=== PATIENT | female | born 1940 | race Caucasian/White ===

== ENCOUNTER 2016-03-30 05:54 | Day surgery (SDC) | payer MEDICARE, BC ==
[2016-03-30] MEDS ORDERED: Lactated Ringers 1,000 ML IV SCH (06:30)
--- NOTE | 2016-03-30 08:27 | OP ---
SURGERY DATE: 03/30/16 SURGERY TIME: 734 PREOPERATIVE DIAGNOSIS: 1. SCREENING EXAM. 2. FAMILY HISTORY OF COLON CANCER, TWO FIRST DEGREE RELATIVES. POSTOPERATIVE DIAGNOSIS: 1. SIGMOID DIVERTICULOSIS, OTHERWISE NORMAL COLON. PROCEDURE: 1. Colonoscopy. SURGEON: Dr. Cortes. ANESTHESIA: MAC, medications given by the Anesthesia Department. BRIEF HISTORY: The patient is a 76 y/o WF presenting now for her 2nd screening colonoscopy. She reports she had one several years ago, roughly ten. The patient reports that her mother and brother had colon cancer. The patient was felt to need have endoscopic evaluation. She was appraised of the risks of the procedure including the risk of perforation, phlebitis, untoward reaction to medication, bleeding, and missed lesions. The patient verbalized her understanding and desired to have the procedure performed. DESCRIPTION OF PROCEDURE: The patient was given the medications by the Anesthesia Department. She had continuous pulse oximetry, ECG monitoring, intermittent BP monitoring, and end tidal CO2 monitoring during the examination. She was placed in the left lateral decubitus position. A digital rectal examination was performed and revealed normal anal sphincter tone and no masses. The flexible Olympus pediatric colonoscope was used to intubate the rectum. A view of the colon was developed sequentially to the cecum. Upon insertion and withdrawal, including a retroflex view in the rectum, no mucosal lesions were encountered other than the occasional scattered sigmoid diverticula. The scope was removed from the patient who tolerated the procedure well and was sent back to OP recovery in good condition. The prep was noted to be fair to good.
[2016-03-30 09:07] VITALS: O2SAT 98
[2016-03-30 09:08] VITALS: BP 109/60; PULSE 76
[2016-03-30] MEDS ORDERED: DIPRIVAN 200 MG/20 ML IV ONE (13:43)
[2016-03-30] MEDS ORDERED: Ketamine HCl 50 MG/ML IJ ONE (13:43)
== END 2016-03-30 09:05 | disposition home or self-care (01) ==
LOC: SDC 05:54
PROVIDERS: ATTEND Family Medicine
PROC: 0DJD8ZZ Inspection of Lower Intestinal Tract, Via Natural or Artificial Opening Endoscopic (ICD-10-PCS; principal; 2016-03-30)
DX: Z12.11 Encounter for screening for malignant neoplasm of colon (principal); Z80.0 Family history of malignant neoplasm of digestive organs; K57.30 Diverticulosis of large intestine without perforation or abscess without bleeding
CPT/HCPCS: 00810; 99100; G0105; J2704

== ENCOUNTER 2017-12-03 22:01 | Emergency (ER) | payer MEDICARE, BC ==
[2017-12-03 22:26] VITALS: BP 171/96
[2017-12-03] MEDS ORDERED: Zofran 4 MG/2 ML VIAL IV ONE (22:55)
[2017-12-03] MEDS ORDERED: Sodium Chloride 0.9% 1000 ML 1,000 ML IV SCH (23:00)
--- NOTE | 2017-12-03 23:05 | ERPHSYRPT ---
- History of Present Illness Time Seen by Provider: 12/03/17 22:35 Historian: patient Exam Limitations: clinical condition Patient Subjective Stated Complaint: Pt arrives to ER with c/o vomiting for 1 hour. Pt has constipated for past 1 week. States takes pain medicine for chronic back pain on occasion, states took 1 Hydrocodone last week and 1 Oxycodone today. Was seen by Pain Doctor yesterday for hip/back/knee pain. Triage Nursing Assessment: see above Physician History: PATIENT WITH A HISTORY OF HYPERTENSION, AND CHRONIC PAIN, COMPLAINS OF UPPER ABDOMINAL PAIN TODAY ASSOCIATED WITH 1 EPISODE OF EMESIS AND CONSTIPATION FOR 1 WEEK. DENIES FEVER, URINARY SYMPTOMS DYSURIA, FREQUENCY, HEMATURIA AND FLANK PAIN. Timing/Duration: today Activities at Onset: none Quality: cramping Abdominal Pain Onset Location: epigastric Pain Radiation: no radiation Severity of Pain-Max: moderate Severity of Pain-Current: moderate Associated Symptoms: nausea, vomiting (CONSTIPATION) Allergies/Adverse Reactions: codeine Allergy (Verified 12/03/17 22:26) erythromycin base Allergy (Verified 12/03/17 22:26) latex Allergy (Verified 12/03/17 22:26) Home Medications: Aspirin/Calcium Carbonate/Mag [Aspirin Buffered 325 mg Tab] 325 mg PO DAILY [History] Colchicine [Mitigare] 0.6 mg PO DAILY 12/07/15 [History] Ergocalciferol (Vitamin D2) [Vitamin D2] 50,000 unit PO Q7D 12/07/15 [History] Hydrocodone Bit/Acetaminophen [[place] 7.5-325 Tablet] 1 each PO BID 12/07/15 [ History] Magnesium 400 mg PO DAILY 12/07/15 [History] Melatonin 5 mg PO HS 12/07/15 [History] Methyl-B12/l-Mefolate/B6 Phos [Metanx Tablet] 1 each PO BID 12/07/15 [History] Olmesartan Medoxomil 20 mg [Benicar 20 MG] 20 mg PO BID 12/07/15 [History] Potassium Chloride [Klor-Con 10] 10 meq PO BID 12/07/15 [History] Promethazine HCl 25 mg [Phenergan 25 mg] 25 mg PO .PRN 12/07/15 [History] Ranitidine HCl [Zantac] 150 mg PO DAILY 12/07/15 [History] Allopurinol 100 mg [Zyloprim 100 mg] 100 mg PO 12/03/17 [History] Bumetanide 1 mg [Bumex 1 mg] 1 mg PO 12/03/17 [History] Gabapentin 100 mg PO 12/03/17 [History] Oxycodone HCl/Acetaminophen [Oxycodone-Acetaminophen 5-325] 1 each PO 12/03/17 [ History] Pravastatin Sodium [Pravachol] 10 mg PO 12/03/17 [History] - Review of Systems Constitutional: No Fever, No Chills Eyes: No Symptoms Ears, Nose, & Throat: No Symptoms Respiratory: No Symptoms, No Cough, No Dyspnea Cardiac: No Symptoms, No Chest Pain, No Edema, No Syncope Abdominal/Gastrointestinal: No Abdominal Pain, No Nausea, No Vomiting, No Diarrhea Genitourinary Symptoms: Flank Pain, No Dysuria Musculoskeletal: No Back Pain, No Neck Pain Skin: No Rash Neurological: No Dizziness, No Focal Weakness, No Sensory Changes Psychological: No Symptoms Endocrine: No Symptoms All Other Systems: Reviewed and Negative - Past Medical History Pertinent Past Medical History: Yes ENT History: Cataracts Cardiac History: High Cholesterol, Hypertension, Myocardial Infarction (HI) History: Renal Disease Other Medical History: Rheumatic Fever, Stage III Kidney Disease, - Past Surgical History Past Surgical History: Yes Cardiac: Cardiac Catheterization, Cardiac Stent Gastrointestinal: Cholecystectomy Musculoskeletal: Other Other Surgical History: Sinus Surgery, Left Heel Surgery - Social History Smoking Status: Never smoker Exposure to second hand smoke: No Drug Use: none Patient Lives Alone: No - Female History Hx Now: No - Nursing Vital Signs Nursing Vital Signs: Initial Vital Signs Temperature 98.6 F 12/03/17 22:13 Pulse Rate 95 H 12/03/17 22:13 Respiratory Rate 18 12/03/17 22:13 Blood Pressure 171/96 12/03/17 22:13 O2 Sat by Pulse Oximetry 97 12/03/17 22:13 Pain Scale Pain Intensity 4 - Physical Exam General Appearance: no apparent distress, alert Eye Exam: PERRL/EOMI, eyes nml inspection Ears, Nose, Throat Exam: normal ENT inspection, pharynx normal, moist mucous membranes Neck Exam: normal inspection, non-tender, supple, full range of motion Respiratory Exam: normal breath sounds, lungs clear, No respiratory distress Cardiovascular Exam: regular rate/rhythm, normal heart sounds Gastrointestinal/Abdomen Exam: soft, normal bowel sounds, No tenderness, No mass Back Exam: normal inspection, normal range of motion, CVA tenderness (LEFT CVA TENDERNESS), No vertebral tenderness Extremity Exam: normal inspection, normal range of motion, pelvis stable Neurologic Exam: alert, oriented x 3, cooperative, normal mood/affect, nml cerebellar function, sensation nml, No motor deficits Skin Exam: normal color, warm, dry SpO2 Interpretation: normal SpO2: 97 Oxygen Delivery: Room Air - CT Exams Abdomen/Pelvis CT Interpretation: Tele-radiologist Report (NO ACUTE FINDINGS, NO BOWEL OBSTRUCTION, FREE AIR OR BOWEL WALL THICKENING,) Ordered Tests: Active Orders 24 hr Category Date Time Status Clean Catch Urine Specimen STAT Care 12/03/17 22:55 Active Enema STAT Care 12/04/17 01:14 Active IV Insertion STAT Care 12/03/17 22:55 Active ABDOMEN AND PELVIS W/0 CONTRAS [CT] Stat Exams 12/03/17 22:55 Taken AMYLASE Stat Lab 12/03/17 23:20 Completed CBC W DIFF Stat Lab 12/03/17 23:20 Completed CMP Stat Lab 12/03/17 23:20 Completed CULTURE,URINE Stat Lab 12/03/17 01:42 Received LIPASE Stat Lab 12/03/17 23:20 Completed UA W/ MICROSCOPIC Stat Lab 12/03/17 01:42 Completed Medication Summary Generic Name Dose Route Start Last Admin Trade Name Freq PRN Reason Stop Dose Admin Sodium Chloride 1,000 mls @ 100 mls/hr 12/03/17 23:00 12/03/17 23:33 Sodium Chloride 0.9% 1000 Ml IV 01/02/18 22:59 100 mls/hr .Q10H ALISHA Administration Ceftriaxone Sodium/Dextrose 1 g in 50 mls @ 100 mls/hr 12/04/17 02:18 Rocephin 1 Gm-D5w 50 Ml Bag IV 12/04/17 02:47 STAT STA Discontinued Medications Generic Name Dose Route Start Last Admin Trade Name Freq PRN Reason Stop Dose Admin Morphine Sulfate 4 mg 12/03/17 23:48 12/03/17 23:59 Morphine Sulfate 4 Mg Inj IV 12/03/17 23:49 Not Given STAT ONE Morphine Sulfate Confirm 12/03/17 23:58 Morphine Sulfate 4 Mg Inj Administered 12/03/17 23:59 Dose 4 mg .ROUTE .STK-MED ONE Ondansetron HCl 4 mg 12/03/17 22:55 12/03/17 23:26 Zofran 4 Mg/2 Ml Vial IV 12/03/17 22:56 4 mg STAT ONE Administration Ondansetron HCl Confirm 12/03/17 23:18 Zofran 4 Mg/2 Ml Vial Administered 12/03/17 23:19 Dose 4 mg .ROUTE .STK-MED ONE Lab/Rad Data: Laboratory Result Diagrams 12/03/17 23:20 12/03/17 23:20 Laboratory Results 12/03/17 12/03/17 12/03/17 Range/Units 23:20 23:20 01:42 WBC 7.6 (4.0-10.5) K/mm3 RBC 4.37 (4.1-5.4) M/mm3 Hgb 14.0 (12.0-16.0) gm/dl Hct 40.8 (35-47) % MCV 93.4 (78-100) fl MCH 32.0 (26-32) pg MCHC 34.3 (32-36) g/dl RDW 12.8 (11.5-14.0) % Plt Count 298 (150-450) K/mm3 MPV 9.7 H (6-9.5) fl Gran % 68.1 H (36.0-66.0) % Eos # (Auto) 0.08 (0-0.5) Absolute Lymphs (auto) 1.37 (1.0-4.6) Absolute Monos (auto) 0.91 (0.0-1.3) Lymphocytes % 18.1 L (24.0-44.0) % Monocytes % 12.0 (0.0-12.0) % Eosinophils % 1.1 (0.00-5.0) % Basophils % 0.7 (0.0-0.4) % Absolute Granulocytes 5.16 (1.4-6.9) Basophils # 0.05 (0-0.4) Sodium 139 (137-145) mmol/L Potassium 3.7 (3.5-5.1) mmol/L Chloride 97 L (98-107) mmol/L Carbon Dioxide 32 H (22-30) mmol/L Anion Gap 13.5 (5-15) MEQ/L BUN 32 H (7-17) mg/dL Creatinine 1.46 H (0.52-1.04) mg/dL Estimated GFR 36.9 ML/MIN Glucose 137 H (74-106) mg/dL Calcium 9.7 (8.4-10.2) mg/dL Total Bilirubin 0.70 (0.2-1.3) mg/dL AST 51 H (14-36) U/L ALT 64 H (0-35) U/L Alkaline Phosphatase 104 (38-126) U/L Serum Total Protein 7.4 (6.3-8.2) g/dL Albumin 4.2 (3.5-5.0) g/dL Amylase 114 H (30-110) U/L Lipase 277 (23-300) U/L Ur Collection Type VOID Urine Color YELLOW (YELLOW) Urine Appearance SLIGHTLY CLOUDY (CLEAR) Urine pH 5.0 (5-6) Ur Specific Dickey 1.025 (1.005-1.025) Urine Protein NEGATIVE (Negative) Urine Ketones NEGATIVE (NEGATIVE) Urine Blood NEGATIVE (0-5) Simone/ul Urine Nitrite NEGATIVE (NEGATIVE) Urine Bilirubin NEGATIVE (NEGATIVE) Urine Urobilinogen NORMAL (0-1) mg/dL Ur Leukocyte Esterase 2+ (NEGATIVE) Urine Microscopic RBC 10-15 (0-2) /HPF Urine Microscopic WBC 15-25 (0-5) /HPF Ur Epithelial Cells MANY (FEW) /HPF Urine Bacteria MANY (NEGATIVE) /HPF Hyaline Casts 0-2 (0-2) /LPF Urine Culture Reflexed YES (NO) Urine Glucose NEGATIVE (NEGATIVE) mg/dL - Progress Progress Note: 12/04/17 02:24 IV NORMAL SALINE 100ML/HR, ZOFRAN 4MG, ROCEPHIN 1GM IVPB, SOAP SUDS ENEMA 12/04/17 02:25 Counseled pt/family regarding: lab results, diagnosis, need for follow-up, rad results - Departure Time of Disposition: 03:15 Departure Disposition: Home Clinical Impression: CONSTIPATION, URINARY TRACT INFECTION Condition: Stable Critical Care Time: No Referrals: GENOVEVA CASTELLANOS [Primary Care Provider] - Additional Instructions: TAKE OVER THE COUNTER MAGNESIUM CITRATE 1 BOTTLE FOR CONSTIPATION. ANTIBIOTIC BACTRIM DS TWICE DAILY FOR10 DAYS FOR TREATMENT OF YOUR URINARY TRACT INFECTION. CONSULT YOUR PRIMARY CARE PROVIDER FOR FOLLOWUP. Prescriptions: Smz/Tmp Ds Tablet [Bactrim Ds Tablet] 1 tab PO BID #20 tablet
[2017-12-03] MEDS ORDERED: Sodium Chloride 0.9% 1000 ML 1,000 ML ONE (23:18)
[2017-12-03] MEDS ORDERED: Zofran 4 MG/2 ML VIAL ONE (23:18)
[2017-12-03 23:35] LABS: BASOPHIL % 0.7 % (0.0-0.4); Basophil (Absolute #) 0.05 (0-0.4); Eosinophil % 1.1 % (0.00-5.0); Eosinophil (Absolute #) 0.08 (0-0.5); Granulocyte Absolute (ANC) 5.16 (1.4-6.9); Granulocytes % 68.1 % (36.0-66.0); Hematocrit 40.8 % (35-47); Lymphocyte (Absolute #) 1.37 (1.0-4.6); Lymphocytes % 18.1 % (24.0-44.0); Mean Cell Volume 93.4 fl (78-100); Mean Corpuscular Hgb Concent. 34.3 g/dl (32-36); Mean Platelet Volume 9.7 fl (6-9.5); Monocyte (Absolute #) 0.91 (0.0-1.3); Platelet Count 298 K/mm3 (150-450); Red Blood Count 4.37 M/mm3 (4.1-5.4); Red Cell Distribution Width 12.8 % (11.5-14.0); White Blood Count 7.6 K/mm3 (4.0-10.5)
[2017-12-03 23:46] LABS: ALBUMIN 4.2 g/dL (3.5-5.0); ANION GAP 13.5 MEQ/L (5-15); BILIRUBIN,TOTAL 0.7 mg/dL (0.2-1.3); Calcium 9.7 mg/dL (8.4-10.2); Creatinine 1 1.46 mg/dL (0.52-1.04); Potassium 3.7 mmol/L (3.5-5.1); Total Protein 7.4 g/dL (6.3-8.2)
[2017-12-03] MEDS ORDERED: MORPHINE SULFATE 4 MG INJ IV ONE (23:48)
[2017-12-03] MEDS ORDERED: MORPHINE SULFATE 4 MG INJ ONE (23:58)
[2017-12-04 00:08] VITALS: PULSE 91
[2017-12-04 01:14] VITALS: O2SAT 97
[2017-12-04 01:54] LABS: Appearance SLIGHTLY CLOUDY (CLEAR); Bilirubin NEGATIVE (NEGATIVE); Blood NEGATIVE Ery/ul (0-5); Glucose NEGATIVE (NEGATIVE); Ketones NEGATIVE (NEGATIVE); Leukocyte Esterase 2+ (NEGATIVE); Nitrite NEGATIVE (NEGATIVE); Protein,Urine Dip NEGATIVE (Negative); Specific Gravity 1.025 (1.005-1.025); Urobilinogen NORMAL mg/dL (0-1)
[2017-12-04 01:55] LABS: Bacteria MANY /HPF (NEGATIVE); Epithelial Cells MANY /HPF (FEW); Hyaline Casts 0-2 /LPF (0-2); WBC 15-25 /HPF (0-5)
[2017-12-04] MEDS ORDERED: ROCEPHIN 1 Gm-D5w 50 ml Bag** 1 G/50 ML IVPB IV STA (02:18)
[2017-12-04] MEDS ORDERED: ROCEPHIN 1 Gm-D5w 50 ml Bag** 1 G/50 ML IVPB IV ONE (02:27)
--- NOTE | 2017-12-04 14:19 | XRAY ---
Exam: CT of the abdomen and pelvis without IV contrast from 12/03/2017. CTDI: 28.13. Comparison: CT of the abdomen without IV contrast from 12/31/2006. Indication: Upper abdominal/right flank pain 1 day with nausea, history of cholecystectomy. Technique: Non-IV contrast axial images were obtained through the abdomen and pelvis. Reconstructed coronal and sagittal images were created and reviewed. Findings: The patient is noted to be morbidly obese. Minimal linear atelectasis is seen at both lung bases. Prominent bilateral epicardial fat pads are seen. A tiny nonspecific 3 mm nodular density is seen within the left posterior lung sulcus on axial image #16. This is not definitely seen on the prior exam, but I still believe it is of doubtful significance. There is a small amount of high attenuation density within the distal aspect of the stomach lumen which may represent medication. Surgical clips consistent with prior cholecystectomy are noted within the right upper quadrant. Assessment of the solid organs is limited without the use of IV contrast. The liver, spleen, pancreas, and adrenal glands appear unremarkable. I see no intrahepatic biliary duct distention or inflammatory findings to suggest acute pancreatitis. The kidneys appear within normal limits of size and reveal no calculi, hydronephrosis, or gross mass. No ureteral stone is seen on either side. On sagittal image #103 there is a fat-containing umbilical hernia measuring about 2.7 cm x 2.2 cm. No bowel containing ventral hernia is seen. There is no free intraperitoneal air. Some atherosclerotic vascular calcification is seen within the abdominal aorta and iliac arteries. No abdominal aortic aneurysm or abnormal retroperitoneal lymphadenopathy is seen. Scattered stool is seen throughout the colon. Mild proximal sigmoid colon diverticulosis without evidence of diverticulitis is seen. I see no abnormal bowel distention or bowel wall thickening. No findings of appendicitis are noted within the right lower quadrant. No free intraperitoneal fluid is seen. The uterus is anteflexed and appears unremarkable. The urinary bladder is mildly distended and reveals no significant abnormality. No abnormal pelvic adnexal abnormality is seen. No enlarged pelvic lymph nodes are seen. There is slight dextroscoliosis centered at L2-L3. This is unchanged. There is at least moderate multilevel degenerative disc disease at L3-L4, L4-L5, and L5-S1. Minimal anterolisthesis of L4 over L5 is seen without spondylolysis. I do note some mild facet joint arthropathy with vacuum phenomena at L4-L5 bilaterally and at L5-S1 on the left. I also note moderate degenerative disc disease at T12-L1 and at least partial bone fusion at T11-T12 on the right. Lower thoracic spondylosis is seen. Impression: 1. No acute process is seen within the abdomen or pelvis. 2. Mild proximal sigmoid colon diverticulosis without evidence of diverticulitis. 3. Status post cholecystectomy. 4. A small fat-containing umbilical hernia is seen. 5. Mild lumbar scoliosis, minimal anterolisthesis of L4 over L5, and moderate multilevel degenerative disc disease and lower thoracolumbar spondylosis are seen.
== END 2017-12-04 03:26 | disposition home or self-care (01) ==
LOC: ED 22:01
DX: K59.00 Constipation, unspecified (principal); N39.0 Urinary tract infection, site not specified; R10.13 Epigastric pain; R11.2 Nausea with vomiting, unspecified; Z79.899 Other long term (current) drug therapy
CPT/HCPCS: 36000; 36415; 74176; 80053; 81001; 82150; 83690; 85025; 87086; 96360; 96361; 96374; 99284; J0696; J2270; J2405

== ENCOUNTER 2018-06-25 13:43 | Day surgery (SDC) | payer MEDICARE, BC ==
[2018-06-25] MEDS ORDERED: Marcaine 0.5% SDV 10 ML IJ ONE (13:44)
[2018-06-25] MEDS ORDERED: DIPRIVAN 200 MG/20 ML IV ONE (13:44)
[2018-06-25] MEDS ORDERED: Depo-Medrol 40 MG/ML IM ONE (13:44)
--- NOTE | 2018-06-25 16:18 | XRAY ---
Indication: Right SI injection. Intraoperative fluoroscopy was provided for 14 seconds. 2 digital spot images submitted for interpretation demonstrates posterior needle tip projecting over the inferior right SI joint. Correlate with intraoperative findings/report.
--- NOTE | 2018-06-25 16:20 | XRAY ---
14 seconds fluoroscopy time in surgery for right SI injection.
[2018-06-25] MEDS ORDERED: Lactated Ringers 1,000 ML IV ONE (17:14)
== END 2018-06-25 15:36 | disposition home or self-care (01) ==
LOC: SDC-PAIN 13:43
PROVIDERS: ATTEND Psychiatry & Neurology Pain Medicine
DX: M46.1 Sacroiliitis, not elsewhere classified (principal); M53.3 Sacrococcygeal disorders, not elsewhere classified; Z79.899 Other long term (current) drug therapy; I10 Essential (primary) hypertension; G47.30 Sleep apnea, unspecified; M10.9 Gout, unspecified; N19 Unspecified kidney failure; I25.10 Atherosclerotic heart disease of native coronary artery without angina pectoris
CPT/HCPCS: 72020; 77002; G0260; 27096; 99100; J1030; J2704

== ENCOUNTER 2018-08-06 10:44 | Day surgery (SDC) | payer MEDICARE, BC ==
[2018-08-06] MEDS ORDERED: Marcaine 0.5% SDV 10 ML IJ ONE (10:45)
[2018-08-06] MEDS ORDERED: Depo-Medrol 40 MG/ML IM ONE (10:45)
[2018-08-06] MEDS ORDERED: DIPRIVAN 200 MG/20 ML IV ONE (10:45)
--- NOTE | 2018-08-06 12:47 | XRAY ---
7 seconds fluoroscopy time in surgery for right knee injection.
--- NOTE | 2018-08-06 12:47 | XRAY ---
6 seconds fluoroscopy time in surgery for left knee injection.
--- NOTE | 2018-08-06 12:54 | XRAY ---
Indication: Right knee injection. Intraoperative fluoroscopy was provided for 7 seconds. Single digital spot image submitted for interpretation demonstrates needle tip projecting over the right femur intercondylar notch. Small amount of contrast injected for needle tip placement. Correlate with intraoperative findings/report.
--- NOTE | 2018-08-06 12:57 | XRAY ---
Indication: Left knee injection. Intraoperative fluoroscopy was provided for 6 seconds. Single digital spot image submitted for interpretation demonstrates needle tip projecting over the left femur intercondylar notch. Small amount of contrast injected for needle tip placement. Correlate with intraoperative findings/report.
[2018-08-06] MEDS ORDERED: Lactated Ringers 1,000 ML IV ONE (13:06)
== END 2018-08-06 12:05 | disposition home or self-care (01) ==
LOC: SDC-PAIN 10:44
PROVIDERS: ATTEND Psychiatry & Neurology Pain Medicine
DX: M17.0 Bilateral primary osteoarthritis of knee (principal); N19 Unspecified kidney failure; I25.10 Atherosclerotic heart disease of native coronary artery without angina pectoris; G47.30 Sleep apnea, unspecified; I10 Essential (primary) hypertension; M10.9 Gout, unspecified
CPT/HCPCS: 20610; 73560; 77002; J1030; J2704; Q9966

== ENCOUNTER 2018-09-17 18:16 | Emergency (ER) | payer MEDICARE, BC ==
--- NOTE | 2018-09-17 18:55 | ERPHSYRPT ---
- History of Present Illness Source: patient Exam Limitations: no limitations Patient Subjective Stated Complaint: blood sugars have been running in the 400's , tested around 1500 and it was 451, upon admitance to the ER it was 93 Triage Nursing Assessment: Pt brought into the ER via a wheelchair, hypertensive , tested with Accucheck and blood sugar was 93, stated that it was in the 400's at home about 3.5 hours ago, had cortisone shots in July for back, pulses normal , skin dry and clear, doesn't appear to be in any distress Timing/Duration: other (patient states she has been feeling tired and having increasing blood sugars for several months today he checked her blood sugar was 451) Severity: moderate Modifying Factors: Worsens With: eating, immobilization, medication, movement, rest, acetaminophen, ibuprofen Associated Symptoms: other (fatigue), No nausea, No vomiting, No abdominal pain , No shortness of breath, No heartburn, No diaphoresis, No cough, No chills, No chest pain, No fever, No headaches, No loss of appetite, No malaise, No rash, No syncope, No seizure, No weakness <SANDY JUSTICE - Last Filed: 09/17/18 19:11> <RAMEZ WEINER - Last Filed: 09/17/18 20:04> - History of Present Illness Time Seen by Provider: 09/17/18 18:50 Physician History: 78-year-old white female with history of cataracts, hypercholesterolemia, high blood pressure, renal disease Patient's arrives with complaint that she's been feeling really tired for months. She states that she was checking her blood sugars and has noted them to be high for months He states that earlier today blood sugar was 451 She denies excessive thirst excessive drinking no urinary symptoms. She's states she does not have diabetes but she was checking her sugars because she had gotten some steroid injections in her back and knees. She has no fevers. . past medical history includes cataracts, hypercholesterolemia, high blood pressure, myocardial infarction, renal disease Past surgical history includes cardiac catheter, cardiac stents, cholecystectomy ,, hand surgery (SANDY JUSTICE) Allergies/Adverse Reactions: codeine Allergy (Verified 09/17/18 18:34) erythromycin base Allergy (Verified 09/17/18 18:34) latex Allergy (Verified 09/17/18 18:34) Home Medications: Aspirin/Calcium Carbonate/Mag [Aspirin Buffered 325 mg Tab] 325 mg PO DAILY [History] Colchicine [Mitigare] 0.6 mg PO DAILY 12/07/15 [History] Ergocalciferol (Vitamin D2) [Vitamin D2] 50,000 unit PO Q7D 12/07/15 [History] Hydrocodone Bit/Acetaminophen [[place] 7.5-325 Tablet] 1 each PO QID 12/07/15 [ History] Magnesium 400 mg PO DAILY 12/07/15 [History] Melatonin 5 mg PO HS 12/07/15 [History] Potassium Chloride [Klor-Con 10] 10 meq PO BID 12/07/15 [History] Promethazine HCl 25 mg [Phenergan 25 mg] 25 mg PO .PRN 12/07/15 [History] Ranitidine HCl [Zantac] 150 mg PO DAILY 12/07/15 [History] Allopurinol 100 mg [Zyloprim 100 mg] 100 mg PO DAILY 12/03/17 [History] Bumetanide 1 mg [Bumex 1 mg] 1 mg PO DAILY 12/03/17 [History] Gabapentin 100 mg PO DAILY 12/03/17 [History] Metoprolol Succinate 25 mg Xl* [Toprol-Xl 25MG Tablets] 25 mg PO DAILY [History] Telmisartan 40 mg PO DAILY 09/17/18 [History] - Review of Systems Constitutional: Other (fatigue), No Fever, No Chills Eyes: No Symptoms Ears, Nose, & Throat: No Symptoms Respiratory: No Cough, No Dyspnea Cardiac: No Chest Pain, No Edema, No Syncope Abdominal/Gastrointestinal: No Abdominal Pain, No Nausea, No Vomiting, No Diarrhea Genitourinary Symptoms: No Dysuria Musculoskeletal: No Back Pain, No Neck Pain Skin: No Symptoms Neurological: No Dizziness, No Focal Weakness, No Sensory Changes Psychological: No Symptoms Endocrine: Other (blood sugars high at home) All Other Systems: Reviewed and Negative <SANDY JUSTICE - Last Filed: 09/17/18 19:11> - Past Medical History Pertinent Past Medical History: Yes Neurological History: No Pertinent History ENT History: Cataracts Cardiac History: Coronary Artery Disease, High Cholesterol, Hypertension, Myocardial Infarction ([place]) Respiratory History: No Pertinent History Endocrine Medical History: Other Musculoskeletal History: Osteoarthritis History: Renal Disease Other Medical History: STAGE 3 CKD D/T [facility] USE OF ARTHRITIS MEDICINE. CARDIAC STENT PLACEMENT X 1 2007. CHOLECYSTECTOMY, HX OF EVACUATION OF HEMATOMA LEFT ANKLE > 10 YEARS ABO. - Past Surgical History Past Surgical History: Yes Cardiac: Cardiac Catheterization, Cardiac Stent Gastrointestinal: Cholecystectomy Musculoskeletal: Other Other Surgical History: Sinus Surgery, Left Heel Surgery - Social History Smoking Status: Never smoker Exposure to second hand smoke: No Drug Use: none Patient Lives Alone: No <RESHMASANDY LORNA - Last Filed: 09/17/18 19:11> - Physical Exam General Appearance: no apparent distress, alert, obese Eye Exam: PERRL/EOMI, eyes nml inspection Ears, Nose, Throat Exam: normal ENT inspection, TMs normal, pharynx normal, moist mucous membranes Neck Exam: normal inspection, non-tender, supple, full range of motion Respiratory Exam: normal breath sounds, lungs clear, No respiratory distress Cardiovascular Exam: regular rate/rhythm, normal heart sounds, normal peripheral pulses, capillary refill <2 sec Gastrointestinal/Abdomen Exam: soft, normal bowel sounds, No tenderness, No mass Back Exam: normal inspection, normal range of motion, No CVA tenderness, No vertebral tenderness Extremity Exam: normal inspection, normal range of motion, pelvis stable Neurologic Exam: alert, oriented x 3, cooperative, 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 as tested, normal mood/affect, nml cerebellar function, nml station & gait, sensation nml, No motor deficits Skin Exam: normal color, warm, dry, No rash SpO2 Interpretation: normal (93%) SpO2: 93 <SANDY JUSTICE - Last Filed: 09/17/18 19:11> - Nursing Vital Signs Nursing Vital Signs: Initial Vital Signs Temperature 97.8 F 09/17/18 18:26 Pulse Rate 58 L 09/17/18 18:26 Blood Pressure 155/79 09/17/18 18:26 O2 Sat by Pulse Oximetry 93 L 09/17/18 18:26 Pain Scale Pain Intensity 5 Ordered Tests: Active Orders 24 hr Category Date Time Status EKG-ER Only STAT Care 09/17/18 18:55 Active IV Insertion STAT Care 09/17/18 18:50 Active CBC W DIFF Stat Lab 07/10/19 19:32 Completed CMP Stat Lab 09/17/18 19:32 Completed UA W/RFX UR CULTURE Stat Lab 09/17/18 19:23 Completed Medication Summary Discontinued Medications Generic Name Dose Route Start Last Admin Trade Name Nikhil PRN Reason Stop Dose Admin Cephalexin HCl 500 mg 09/17/18 20:01 Keflex 500 Mg PO 09/17/18 20:02 STAT ONE Lab/Rad Data: Laboratory Result Diagrams 09/17/18 19:32 09/17/18 19:32 Laboratory Results 09/17/18 09/17/18 09/17/18 Range/Units 19:32 19:32 19:32 WBC 5.0 (4.0-10.5) K/mm3 RBC 4.19 (4.1-5.4) M/mm3 Hgb 13.3 (12.0-16.0) gm/dl Hct 40.2 (35-47) % MCV 95.9 (78-100) fl MCH 31.7 (26-32) pg MCHC 33.1 (32-36) g/dl RDW 13.8 (11.5-14.0) % Plt Count 204 (150-450) K/mm3 MPV 10.9 H (6-9.5) fl Gran % 54.3 (36.0-66.0) % Eos # (Auto) 0.15 (0-0.5) Absolute Lymphs (auto) 1.54 (1.0-4.6) Absolute Monos (auto) 0.53 (0.0-1.3) Lymphocytes % 30.9 (24.0-44.0) % Monocytes % 10.6 (0.0-12.0) % Eosinophils % 3.0 (0.00-5.0) % Basophils % 1.2 (0.0-0.4) % Absolute Granulocytes 2.71 (1.4-6.9) Basophils # 0.06 (0-0.4) Sodium 143 (137-145) mmol/L Potassium 3.9 (3.5-5.1) mmol/L Chloride 106 (98-107) mmol/L Carbon Dioxide 30 (22-30) mmol/L Anion Gap 11.2 (5-15) MEQ/L BUN 20 H (7-17) mg/dL Creatinine 1.49 H (0.52-1.04) mg/dL Estimated GFR 36.0 ML/MIN Glucose 98 (74-106) mg/dL Hemoglobin A1c 5.24 (4.5-6.0) % Calcium 9.6 (8.4-10.2) mg/dL Total Bilirubin 1.10 (0.2-1.3) mg/dL AST 39 H (14-36) U/L ALT 26 (0-35) U/L Alkaline Phosphatase 90 (38-126) U/L Serum Total Protein 6.5 (6.3-8.2) g/dL Albumin 3.6 (3.5-5.0) g/dL Urine Color (YELLOW) Urine Appearance (CLEAR) Urine pH (5-6) Ur Specific [place] (1.005-1.025) Urine Protein (Negative) Urine Ketones (NEGATIVE) Urine Blood (0-5) Simone/ul Urine Nitrite (NEGATIVE) Urine Bilirubin (NEGATIVE) Urine Urobilinogen (0-1) mg/dL Ur Leukocyte Esterase (NEGATIVE) Urine WBC (Auto) (0-5) /HPF Urine RBC (Auto) (0-2) /HPF U Epithel Cells (Auto) (FEW) /HPF Urine Bacteria (Auto) (NEGATIVE) /HPF Urine Mucus (Auto) (NEGATIVE) /HPF Urine Culture Reflexed (NO) Urine Glucose (NEGATIVE) mg/dL 09/17/18 Range/Units 19:23 WBC (4.0-10.5) K/mm3 RBC (4.1-5.4) M/mm3 Hgb (12.0-16.0) gm/dl Hct (35-47) % MCV (78-100) fl MCH (26-32) pg MCHC (32-36) g/dl RDW (11.5-14.0) % Plt Count (150-450) K/mm3 MPV (6-9.5) fl Gran % (36.0-66.0) % Eos # (Auto) (0-0.5) Absolute Lymphs (auto) (1.0-4.6) Absolute Monos (auto) (0.0-1.3) Lymphocytes % (24.0-44.0) % Monocytes % (0.0-12.0) % Eosinophils % (0.00-5.0) % Basophils % (0.0-0.4) % Absolute Granulocytes (1.4-6.9) Basophils # (0-0.4) Sodium (137-145) mmol/L Potassium (3.5-5.1) mmol/L Chloride (98-107) mmol/L Carbon Dioxide (22-30) mmol/L Anion Gap (5-15) MEQ/L BUN (7-17) mg/dL Creatinine (0.52-1.04) mg/dL Estimated GFR ML/MIN Glucose (74-106) mg/dL Hemoglobin A1c (4.5-6.0) % Calcium (8.4-10.2) mg/dL Total Bilirubin (0.2-1.3) mg/dL AST (14-36) U/L ALT (0-35) U/L Alkaline Phosphatase (38-126) U/L Serum Total Protein (6.3-8.2) g/dL Albumin (3.5-5.0) g/dL Urine Color YELLOW (YELLOW) Urine Appearance SLIGHTLY CLOUDY (CLEAR) Urine pH 7.0 (5-6) Ur Specific [place] 1.009 (1.005-1.025) Urine Protein NEGATIVE (Negative) Urine Ketones NEGATIVE (NEGATIVE) Urine Blood NEGATIVE (0-5) Simone/ul Urine Nitrite NEGATIVE (NEGATIVE) Urine Bilirubin NEGATIVE (NEGATIVE) Urine Urobilinogen NEGATIVE (0-1) mg/dL Ur Leukocyte Esterase SMALL (NEGATIVE) Urine WBC (Auto) 3-5 (0-5) /HPF Urine RBC (Auto) NONE (0-2) /HPF U Epithel Cells (Auto) RARE (FEW) /HPF Urine Bacteria (Auto) NONE (NEGATIVE) /HPF Urine Mucus (Auto) SLIGHT (NEGATIVE) /HPF Urine Culture Reflexed NO (NO) Urine Glucose NEGATIVE (NEGATIVE) mg/dL - Progress Progress: improved <SANDY JUSTICE - Last Filed: 09/17/18 19:11> - Progress Counseled pt/family regarding: lab results, diagnosis, need for follow-up <RAMEZ WEINER - Last Filed: 09/17/18 20:04> - Progress Progress Note: 09/17/18 19:11 Care of this patient has been transferred to Dr. Weiner secondary to shift change. Case has been discussed with Dr. Weiner. (SANDY JUSTICE) <SANDY JUSTICE - Last Filed: 09/17/18 19:11> - Departure Departure Disposition: Home Critical Care Time: No <RAMEZ WEINER - Last Filed: 09/17/18 20:04> - Departure Clinical Impression: UTI (urinary tract infection) Condition: Stable Referrals: GENOVEVA CASTELLANOS [Primary Care Provider] - Additional Instructions: drink plenty of fluids. follow up with your primary doctor for further management Prescriptions: Cephalexin Mh 500 mg [Keflex 500 mg] 500 mg PO TID #21 capsule
[2018-09-17 19:35] LABS: BASOPHIL % 1.2 % (0.0-0.4); Basophil (Absolute #) 0.06 (0-0.4); Eosinophil (Absolute #) 0.15 (0-0.5); Granulocyte Absolute (ANC) 2.71 (1.4-6.9); Granulocytes % 54.3 % (36.0-66.0); Hematocrit 40.2 % (35-47); Hemoglobin 13.3 gm/dl (12.0-16.0); Lymphocyte (Absolute #) 1.54 (1.0-4.6); Lymphocytes % 30.9 % (24.0-44.0); Mean Cell Volume 95.9 fl (78-100); Mean Corpuscular Hemoglobin 31.7 pg (26-32); Mean Corpuscular Hgb Concent. 33.1 g/dl (32-36); Mean Platelet Volume 10.9 fl (6-9.5); Monocyte (Absolute #) 0.53 (0.0-1.3); Monocytes % 10.6 % (0.0-12.0); Platelet Count 204 K/mm3 (150-450); Red Blood Count 4.19 M/mm3 (4.1-5.4); Red Cell Distribution Width 13.8 % (11.5-14.0)
[2018-09-17 19:37] LABS: Appearance SLIGHTLY CLOUDY (CLEAR); Bilirubin NEGATIVE (NEGATIVE); Blood NEGATIVE Ery/ul (0-5); Epithelial Cells RARE /HPF (FEW); Glucose NEGATIVE (NEGATIVE); Ketones NEGATIVE (NEGATIVE); Leukocyte Esterase SMALL (NEGATIVE); Mucus SLIGHT /HPF (NEGATIVE); Nitrite NEGATIVE (NEGATIVE); Protein,Urine Dip NEGATIVE (Negative); Specific Gravity 1.009 (1.005-1.025); Urobilinogen NEGATIVE mg/dL (0-1)
[2018-09-17 19:46] LABS: ALBUMIN 3.6 g/dL (3.5-5.0); ANION GAP 11.2 MEQ/L (5-15); BILIRUBIN,TOTAL 1.1 mg/dL (0.2-1.3); Calcium 9.6 mg/dL (8.4-10.2); Creatinine 1 1.49 mg/dL (0.52-1.04); Potassium 3.9 mmol/L (3.5-5.1); Total Protein 6.5 g/dL (6.3-8.2)
[2018-09-17] MEDS ORDERED: KEFLEX 500 MG PO ONE (20:01)
[2018-09-17] MEDS ORDERED: KEFLEX 500 MG ONE (20:12)
[2018-09-17 20:20] VITALS: BP 131/80; PULSE 66; O2SAT 97
== END 2018-09-17 20:25 | disposition home or self-care (01) ==
LOC: ED 18:16
DX: N39.0 Urinary tract infection, site not specified (principal); I12.9 Hypertensive chronic kidney disease with stage 1 through stage 4 chronic kidney disease, or unspecified chronic kidney disease; N18.3 Chronic kidney disease, stage 3 (moderate); E78.00 Pure hypercholesterolemia, unspecified; I25.2 Old myocardial infarction; M19.90 Unspecified osteoarthritis, unspecified site; Z79.899 Other long term (current) drug therapy
CPT/HCPCS: 36415; 80053; 81001; 83036; 85025; 93005; 99284; A9270-GY

== ENCOUNTER 2020-01-06 09:57 | Day surgery (SDC) | payer MEDICARE, BC ==
[~2020-01-06 09:57] MED LIST: DIPRIVAN 200 MG/20 ML IV ONE; Ketamine HCl 50 MG/ML ONE
[2020-01-06] MEDS ORDERED: BUPIVACAINE 0.5% VIAL IJ ONE (09:58)
[2020-01-06] MEDS ORDERED: Depo-Medrol 40 MG/ML IM ONE (09:58)
--- NOTE | 2020-01-06 13:09 | XRAY ---
Indication: Left knee injection. Intraoperative fluoroscopy was provided for 8 seconds. Single digital spot image submitted for interpretation demonstrates needle tip projecting over left femur intercondylar notch. Small amount of contrast injected for needle tip placement. Correlate with intraoperative findings/report.
--- NOTE | 2020-01-06 13:09 | XRAY ---
Indication: Right knee injection. Intraoperative fluoroscopy was provided for 6 seconds. Single digital spot image submitted for interpretation demonstrates needle tip projecting over right femur intercondylar notch. Small amount of contrast injected for needle tip placement. Correlate with intraoperative findings/report.
--- NOTE | 2020-01-06 13:17 | XRAY ---
8 seconds fluoroscopy time in surgery for left intra-articular knee injection.
--- NOTE | 2020-01-06 13:17 | XRAY ---
6 seconds fluoroscopy time in surgery for right intra-articular knee injection.
[2020-01-06] MEDS ORDERED: Lactated Ringers 1,000 ML IV ONE (16:48)
== END 2020-01-06 12:02 | disposition home or self-care (01) ==
LOC: SDC 09:57 → SDC-PAIN 09:57
PROVIDERS: ATTEND Psychiatry & Neurology Pain Medicine
DX: M17.0 Bilateral primary osteoarthritis of knee (principal); M25.561 Pain in right knee; M25.562 Pain in left knee; G47.30 Sleep apnea, unspecified; I13.10 Hypertensive heart and chronic kidney disease without heart failure, with stage 1 through stage 4 chronic kidney disease, or unspecified chronic kidney disease; N18.30 Chronic kidney disease, stage 3 unspecified; Z79.899 Other long term (current) drug therapy
CPT/HCPCS: 20610; 73560; 77002; J1030; J2704; Q9966

== ENCOUNTER 2020-04-03 12:04 | Inpatient (IN) | payer MEDICARE ==
[2020-04-03] MEDS ORDERED: Sodium Chloride 0.9% 1000 ML 1,000 ML IV STA (12:08)
[2020-04-03] MEDS ORDERED: Zofran 4 MG/2 ML VIAL IV ONE ×2 (12:08→13:36)
[2020-04-03] MEDS ORDERED: FENTANYL 500 MCG/10 ML VIAL IV ONE ×2 (12:15→23:02)
--- NOTE | 2020-04-03 12:36 | ERPHSYRPT ---
- History of Present Illness Patient Subjective Stated Complaint: Pt states that she has had abdominal pain for the past 3 days and today is the worse, thought she was constipated and has been taking laxatives, took a hydrocodone and a zofran at approx 1100 today, dry heaving Triage Nursing Assessment: Pt brought to ER by EMS, pt is dry heaving, hypertensive, reports severe abdominal pain all over, had a bowel movement this morning, rosemary lower edema, rates pain 10/10, bowel sounds heard in all 4, skin n/w/d Physician History: A male who presents with abdominal pain for 3 days getting much worse today the pain is generalized and she rates it a 10 of 10. She arrived in the ER dry heaving hypertensive and generalized severe abdominal pain night and awoke this morning and more pain. She did have some bowel movement this morning she has a history of atrial for but is on aspirin for anticoagulation. Timing/Duration: day(s) (3), worse Activities at Onset: none Quality: cramping Abdominal Pain Onset Location: generalized abdomen Severity of Pain-Max: severe Severity of Pain-Current: severe Modifying Factors: Improves With: movement Associated Symptoms: nausea, vomiting, weakness Allergies/Adverse Reactions: codeine Allergy (Verified 04/03/20 12:25) erythromycin base Allergy (Verified 04/03/20 12:25) latex Allergy (Verified 04/03/20 12:25) Home Medications: Ergocalciferol (Vitamin D2) [Vitamin D2] 50,000 unit PO Q7D 12/07/15 [History] Potassium Chloride [Klor-Con 10] 10 meq PO BID 12/07/15 [History] Allopurinol 100 mg [Zyloprim 100 mg] 100 mg PO DAILY 12/03/17 [History] Bumetanide 1 mg [Bumex 1 mg] 1 mg PO BID 12/03/17 [History] Gabapentin 100 mg PO DAILY 12/03/17 [History] Metoprolol Succinate 25 mg Xl* [Toprol-Xl 25MG Tablets] 25 mg PO DAILY 09/17/18 [History] Hydrocodone/Acetaminophen [Hydrocodone-Acetamin 10-325 mg^^^] 1 tab PO Q8H PRN 04/03/20 [History] Hydroxyzine HCl 25 mg [Atarax 25 mg] 25 mg PO TID 04/03/20 [History] Travel Risk - International Travel Have you traveled outside of the country in past 3 weeks: No - Coronavirus Screening Are you exhibiting any of the following symptoms?: No Close contact with a COVID-19 positive Pt in past 14-21 Days: No - Review of Systems Constitutional: No Fever, No Chills Eyes: No Symptoms Ears, Nose, & Throat: No Symptoms Respiratory: No Cough, No Dyspnea Cardiac: No Chest Pain, No Edema, No Syncope Abdominal/Gastrointestinal: Abdominal Pain, Vomiting, Constipation, No Diarrhea Genitourinary Symptoms: No Dysuria Musculoskeletal: No Back Pain, No Neck Pain Skin: No Rash Neurological: No Dizziness, No Focal Weakness, No Sensory Changes Psychological: No Symptoms Endocrine: No Symptoms All Other Systems: Reviewed and Negative - Past Medical History Pertinent Past Medical History: Yes Neurological History: No Pertinent History ENT History: Cataracts Cardiac History: Coronary Artery Disease, High Cholesterol, Hypertension, Myocardial Infarction ([place]) Respiratory History: No Pertinent History Endocrine Medical History: Other Musculoskeletal History: Osteoarthritis History: Renal Disease Other Medical History: STAGE 3 CKD D/T [facility] USE OF ARTHRITIS MEDICINE. CARDIAC STENT PLACEMENT X 1 2007. CHOLECYSTECTOMY, HX OF EVACUATION OF HEMATOMA LEFT ANKLE > 10 YEARS ABO. - Past Surgical History Past Surgical History: Yes Cardiac: Cardiac Catheterization, Cardiac Stent Gastrointestinal: Cholecystectomy Musculoskeletal: Other Other Surgical History: Sinus Surgery, Left Heel Surgery - Social History Smoking Status: Never smoker Exposure to second hand smoke: No Drug Use: none Patient Lives Alone: Yes - Nursing Vital Signs Nursing Vital Signs: Initial Vital Signs Temperature 98.6 F 04/03/20 12:06 Pulse Rate 85 04/03/20 12:06 Blood Pressure 180/106 04/03/20 12:06 O2 Sat by Pulse Oximetry 95 04/03/20 12:06 Pain Scale Pain Intensity 10 - Physical Exam General Appearance: moderate distress Eye Exam: PERRL/EOMI, eyes nml inspection Ears, Nose, Throat Exam: normal ENT inspection, pharynx normal, moist mucous membranes Neck Exam: normal inspection, non-tender, supple, full range of motion Respiratory Exam: normal breath sounds, lungs clear, No respiratory distress Cardiovascular Exam: regular rate/rhythm, normal heart sounds Gastrointestinal/Abdomen Exam: tenderness, guarding, rebound, other (decreased ) Back Exam: normal inspection Extremity Exam: normal inspection, normal range of motion Neurologic Exam: alert, oriented x 3 SpO2: 95 - Course Nursing assessment & vital signs reviewed: Yes EKG Interpreted by Me: RATE, A-fib, NORMAL AXIS, NORMAL INTERVALS, NORMAL QRS, Non-specific ST Changes - CT Exams Abdomen/Pelvis CT Interpretation: Tele-radiologist Report, Other (Is no peritoneum with anterior abdomen and left upper quadrant mild free fluid in the right lower quadrant between the liver and the right hemidiaphragm possibly secondary to bowel perforation mild left colonic diverticulitis Kalosis mild bowel wall thickening of the entire colon with some inflammat) Ordered Tests: Active Orders 24 hr Category Date Time Status EKG-ER Only STAT Care 04/03/20 12:08 Active IV Insertion STAT Care 04/03/20 12:08 Active ABDOMEN AND PELVIS W/0 CONTRAS [CT] Stat Exams 04/03/20 12:09 Taken CHEST 1 VIEW (PORTABLE) Stat Exams 04/03/20 12:09 Taken AMYLASE Stat Lab 04/03/20 12:45 Completed CBC W DIFF Stat Lab 04/03/20 12:45 Completed CMP Stat Lab 04/03/20 12:45 Completed CULTURE,URINE Stat Lab 04/03/20 12:10 Ordered LIPASE Stat Lab 04/03/20 12:45 Completed Lactic Acid Stat Lab 04/03/20 12:08 Completed Lactic Acid Stat Lab 04/03/20 14:54 Received PROTIME WITH INR Stat Lab 04/03/20 12:45 Completed TROPONIN Q3H Lab 04/03/20 12:45 Completed TROPONIN Q3H Lab 04/03/20 15:15 Ordered TROPONIN Q3H Lab 04/03/20 18:15 Ordered TROPONIN Q3H Lab 04/03/20 21:15 Ordered TROPONIN Q3H Lab 04/04/20 00:15 Ordered UA W/RFX UR CULTURE Stat Lab 04/03/20 12:08 Ordered Medication Summary Generic Name Dose Route Start Last Admin Trade Name Freq PRN Reason Stop Dose Admin Piperacillin Sod/Tazobactam 100 mls @ 200 mls/hr 04/03/20 15:11 04/03/20 15:15 Sod 3.375 gm/ Sodium Chloride IV 04/03/20 15:40 200 mls/hr STAT ONE Administration Discontinued Medications Generic Name Dose Route Start Last Admin Trade Name Freq PRN Reason Stop Dose Admin Fentanyl Citrate 100 mcg 04/03/20 12:15 04/03/20 12:55 Fentanyl 500 Mcg/10 Ml Vial IV 04/03/20 12:16 Not Given ONCE ONE Fentanyl Citrate Confirm 04/03/20 12:53 Sublimaze 100 Mcg/2 Ml Administered 04/03/20 12:54 Dose 100 mcg .ROUTE .STK-MED ONE Fentanyl Citrate 100 mcg 04/03/20 12:56 04/03/20 12:57 Sublimaze 100 Mcg/2 Ml IV 04/03/20 12:57 100 mcg STAT ONE Administration Sodium Chloride 1,000 mls @ 999 mls/hr 04/03/20 12:08 04/03/20 14:10 Sodium Chloride 0.9% 1000 Ml IV 04/03/20 13:08 Infused .Q1H1M STA Infusion Sodium Chloride Confirm 04/03/20 12:53 Sodium Chloride 0.9% 1000 Ml Administered 04/03/20 12:54 Dose 1,000 mls @ ud .ROUTE .STK-MED ONE Sodium Chloride Confirm 04/03/20 15:12 Sodium Chloride 100ml Mini-Bag Plus Administered 04/03/20 15:13 Dose 100 mls @ ud IV .STK-MED ONE Ondansetron HCl 4 mg 04/03/20 12:08 04/03/20 12:54 Zofran 4 Mg/2 Ml Vial IV 04/03/20 12:09 4 mg STAT ONE Administration Ondansetron HCl Confirm 04/03/20 12:53 Zofran 4 Mg/2 Ml Vial Administered 04/03/20 12:54 Dose 4 mg .ROUTE .STK-MED ONE Ondansetron HCl Confirm 04/03/20 13:32 Zofran 4 Mg/2 Ml Vial Administered 04/03/20 13:33 Dose 4 mg .ROUTE .STK-MED ONE Ondansetron HCl 4 mg 04/03/20 13:36 04/03/20 13:37 Zofran 4 Mg/2 Ml Vial IV 04/03/20 13:37 4 mg STAT ONE Administration Piperacillin Sod/Tazobactam Sod Confirm 04/03/20 15:12 Zosyn 3.375 Gm Vial Administered 04/03/20 15:13 Dose 3.375 gm IV .STK-MED ONE Lab/Rad Data: Laboratory Result Diagrams 04/03/20 12:45 04/03/20 12:45 Laboratory Results 04/03/20 04/03/20 04/03/20 Range/Units 12:45 12:45 12:45 WBC (4.0-10.5) K/mm3 RBC (4.1-5.4) M/mm3 Hgb (12.0-16.0) gm/dl Hct (35-47) % MCV (78-100) fl MCH (26-32) pg MCHC (32-36) g/dl RDW (11.5-14.0) % Plt Count (150-450) K/mm3 MPV (7.5-11.0) fl Gran % (36.0-66.0) % Eos # (Auto) (0-0.5) Absolute Lymphs (auto) (1.0-4.6) Absolute Monos (auto) (0.0-1.3) Lymphocytes % (24.0-44.0) % Monocytes % (0.0-12.0) % Eosinophils % (0.00-5.0) % Basophils % (0.0-0.4) % Absolute Granulocytes (1.4-6.9) Basophils # (0-0.4) PT 13.2 H (9.95-12.35) SECONDS INR 1.17 (0.8-3.0) Sodium 139 (137-145) mmol/L Potassium 3.4 L (3.5-5.1) mmol/L Chloride 104 (98-107) mmol/L Carbon Dioxide 27 (22-30) mmol/L Anion Gap 11.3 (5-15) MEQ/L BUN 16 (7-17) mg/dL Creatinine 1.48 H (0.52-1.04) mg/dL Estimated GFR 36.1 ML/MIN Glucose 155 H (74-106) mg/dL Lactic Acid (0.4-2.0) Calcium 9.2 (8.4-10.2) mg/dL Total Bilirubin 1.40 H (0.2-1.3) mg/dL AST 30 (14-36) U/L ALT 17 (0-35) U/L Alkaline Phosphatase 103 (38-126) U/L Troponin I < 0.012 (0.000-0.034) ng/mL Serum Total Protein 6.7 (6.3-8.2) g/dL Albumin 3.5 (3.5-5.0) g/dL Amylase 69 (30-110) U/L Lipase 119 (23-300) U/L 04/03/20 04/03/20 Range/Units 12:45 12:08 WBC 5.4 (4.0-10.5) K/mm3 RBC 4.31 (4.1-5.4) M/mm3 Hgb 13.2 (12.0-16.0) gm/dl Hct 41.7 (35-47) % MCV 96.8 (78-100) fl MCH 30.6 (26-32) pg MCHC 31.7 L (32-36) g/dl RDW 13.5 (11.5-14.0) % Plt Count 220 (150-450) K/mm3 MPV 9.6 (7.5-11.0) fl Gran % 46.2 (36.0-66.0) % Eos # (Auto) 0.04 (0-0.5) Absolute Lymphs (auto) 2.67 (1.0-4.6) Absolute Monos (auto) 0.18 (0.0-1.3) Lymphocytes % 49.6 H (24.0-44.0) % Monocytes % 3.3 (0.0-12.0) % Eosinophils % 0.7 (0.00-5.0) % Basophils % 0.2 (0.0-0.4) % Absolute Granulocytes 2.48 (1.4-6.9) Basophils # 0.01 (0-0.4) PT (9.95-12.35) SECONDS INR (0.8-3.0) Sodium (137-145) mmol/L Potassium (3.5-5.1) mmol/L Chloride (98-107) mmol/L Carbon Dioxide (22-30) mmol/L Anion Gap (5-15) MEQ/L BUN (7-17) mg/dL Creatinine (0.52-1.04) mg/dL Estimated GFR ML/MIN Glucose (74-106) mg/dL Lactic Acid 6.0 H (0.4-2.0) Calcium (8.4-10.2) mg/dL Total Bilirubin (0.2-1.3) mg/dL AST (14-36) U/L ALT (0-35) U/L Alkaline Phosphatase (38-126) U/L Troponin I (0.000-0.034) ng/mL Serum Total Protein (6.3-8.2) g/dL Albumin (3.5-5.0) g/dL Amylase (30-110) U/L Lipase (23-300) U/L - Progress Progress: unchanged Discussed with : lEis Domínguez Will see patient in: hospital (full admit) - Departure Departure Disposition: In-patient Admission Clinical Impression: Perforated viscus Condition: Serious Critical Care Time: No Referrals: GENOVEVA CASTELLANOS [Primary Care Provider] -
[2020-04-03] MEDS ORDERED: Sodium Chloride 0.9% 1000 ML 1,000 ML ONE ×2 (12:53→16:06)
[2020-04-03] MEDS ORDERED: SUBLIMAZE 100 MCG/2 ML ONE ×2 (12:53→15:40)
[2020-04-03] MEDS ORDERED: Zofran 4 MG/2 ML VIAL ONE ×2 (12:53→13:32)
[2020-04-03] MEDS ORDERED: SUBLIMAZE 100 MCG/2 ML IV ONE ×2 (12:56→15:37)
[2020-04-03 12:57] LABS: Absolute Neutrophil Ct (ANC) 2.48 (1.4-6.9); BASOPHIL % 0.2 % (0.0-0.4); Basophil (Absolute #) 0.01 (0-0.4); Eosinophil % 0.7 % (0.00-5.0); Eosinophil (Absolute #) 0.04 (0-0.5); Hematocrit 41.7 % (35-47); Hemoglobin 13.2 gm/dl (12.0-16.0); Lymphocyte (Absolute #) 2.67 (1.0-4.6); Lymphocytes % 49.6 % (24.0-44.0); Mean Cell Volume 96.8 fl (78-100); Mean Corpuscular Hemoglobin 30.6 pg (26-32); Mean Corpuscular Hgb Concent. 31.7 g/dl (32-36); Mean Platelet Volume 9.6 fl (7.5-11.0); Monocyte (Absolute #) 0.18 (0.0-1.3); Monocytes % 3.3 % (0.0-12.0); Neutrophil % 46.2 % (36.0-66.0); Platelet Count 220 K/mm3 (150-450); Red Blood Count 4.31 M/mm3 (4.1-5.4); Red Cell Distribution Width 13.5 % (11.5-14.0); White Blood Count 5.4 K/mm3 (4.0-10.5)
[2020-04-03 13:17] LABS: INR 1.17 (0.8-3.0); PROTIME 13.2 SECONDS (9.95-12.35)
[2020-04-03 13:21] LABS: ALBUMIN 3.5 g/dL (3.5-5.0); ANION GAP 11.3 MEQ/L (5-15); BILIRUBIN,TOTAL 1.4 mg/dL (0.2-1.3); Calcium 9.2 mg/dL (8.4-10.2); Creatinine 1 1.48 mg/dL (0.52-1.04); EST GLOMERULAR FILTRATION RATE 36.1 ML/MIN; Potassium 3.4 mmol/L (3.5-5.1); Total Protein 6.7 g/dL (6.3-8.2)
[2020-04-03] MEDS ORDERED: Zosyn 3.375 GM Vial 3.375 GM in Sodium Chloride 100ML MINI-BAG PLUS 100 ML IV ONE (15:11)
[2020-04-03] MEDS ORDERED: Sodium Chloride 100ML MINI-BAG PLUS 100 ML IV ONE (15:12)
[2020-04-03] MEDS ORDERED: Zosyn 3.375 GM Vial IV ONE (15:12)
[2020-04-03] MEDS ORDERED: DIPRIVAN 200 MG/20 ML IV ONE (16:02)
[2020-04-03] MEDS ORDERED: Versed 2 MG/2 ML Injection ONE (16:02)
[2020-04-03] MEDS ORDERED: Quelicin Fliptop 200 MG/10 ML ONE (16:02)
[2020-04-03] MEDS ORDERED: Zemuron 100 MG/10 ML ONE ×2 (16:02→19:49)
[2020-04-03] MEDS ORDERED: SUBLIMAZE 250 MCG/5 ML ONE (16:03)
[2020-04-03] MEDS: Sodium Chloride 0.9% 1000 ML 1,000 ML IV SCH (16:08)
[2020-04-03] MEDS ORDERED: Sodium Chloride 0.9% 500 ML 500 ML IV ONE (16:12)
[2020-04-03 17:05] LABS: Appearance SLIGHTLY CLOUDY (CLEAR); Bilirubin NEGATIVE (NEGATIVE); Blood NEGATIVE Ery/ul (0-5); Glucose NEGATIVE (NEGATIVE); Ketones NEGATIVE (NEGATIVE); Leukocyte Esterase NEGATIVE (NEGATIVE); Mucus SLIGHT /HPF (NEGATIVE); Nitrite NEGATIVE (NEGATIVE); Protein,Urine Dip 30 (Negative); Specific Gravity 1.023 (1.005-1.025); Urobilinogen 4 mg/dL (0-1)
[2020-04-03 17:16] LABS: Bacteria NONE SEEN /HPF (NEGATIVE)
[2020-04-03] MEDS ORDERED: MEFOXIN 2 GM PREMIX** 2 GM/50 ML ML IV ONE (17:53)
[2020-04-03] MEDS ORDERED: PHENYLEPHRINE HCL ONE ×2 (18:23→21:42)
--- NOTE | 2020-04-03 19:09 | XRAY ---
Indication: Abdomen pain. Multiple contiguous axial images obtained through the abdomen and pelvis without contrast as ordered. Comparison: December 03, 2017. Lung bases demonstrates minimal bibasilar atelectasis/scarring with new tiny effusions. Heart is not enlarged. New small hiatal hernia. Abdomen/pelvic images are degraded by respiration artifact. Noncontrasted stomach and bowel loops appear nonobstructed. New small free air predominantly in the anterior abdomen and left upper quadrant favoring perforated bowel. Also new small perihepatic and lesser degree right lower quadrant free fluid. No walled off fluid collection. Colon appears predominantly decompressed with new diffuse circumferential wall thickening and pericolonic stranding favoring colitis. Stable minimal sigmoid diverticulosis and cholecystectomy. Remaining liver, pancreas, spleen, adrenal glands, kidneys, ureters, bladder, and uterus appear unremarkable for noncontrast exam. Again mild aortoiliac calcifications without AAA. Osseous structures intact again without osteopenia, mild/moderate multilevel degenerative spondylosis, and mild grade 1 L4 spondylolisthesis. Stable small fatty umbilical hernia. Impression: 1. Respiration artifact. 2. New pneumoperitoneum and small free fluid worrisome for perforated bowel. 3. New diffuse colonic bowel wall thickening with stranding favoring colitis. 4. New tiny bibasilar pleural effusions and small hiatal hernia. 5. Stable sigmoid diverticulosis, fatty umbilical hernia, and chronic bony findings. Comment: Preliminary interpretation was made by [facility]. No critical discrepancy.
--- NOTE | 2020-04-03 19:11 | XRAY ---
Indication: Abdomen pain. Comparison: July 21, 2013. Portable chest significantly underinflated accentuating cardiopulmonary structures and crowding lung bases. No focal infiltrate, consolidation, large effusion, or pneumothorax. Bony thorax intact.
[2020-04-03] MEDS ORDERED: AlbuRx 25% 50ML VIAL*** 100 ML IV ONE (19:21)
[2020-04-03] MEDS ORDERED: Dextrose 5%/Water IV Soln. 250 ML 250 ML IV ONE (21:42)
[2020-04-03] MEDS ORDERED: POTASSIUM CHLORIDE 20 mEq IN WATER 100ML 100 ML IV ONE (21:52)
[2020-04-03] MEDS ORDERED: Lactated Ringers 1,000 ML IV ONE ×2 (21:58→23:53)
[2020-04-03] MEDS: Lactated Ringers 1,000 ML IV SCH (22:00)
[2020-04-03] MEDS: Propofol 1000 mg/100 ml Bottle 100 ML IV PRN ×3 (22:30→23:40)
[2020-04-03 22:51] LABS: A-aADO2 218; ABG HEMOGLOBIN 12.9; ABG POTASSIUM 3.7 (3.5-5.1); ABG SITE line; ARTERIAL BLD GAS O2 SATURATION 97.7 % (95-100); ARTERIAL BLD GAS TIDAL VOLUME 650 cc; ARTERIAL BLOOD GAS BASE EXCESS -9.2 (-2.0-2.0); ARTERIAL BLOOD GAS FIO2 50 %; ARTERIAL BLOOD GAS PCO2 37 mmHg (35-45); ARTERIAL BLOOD GAS PO2 92 mmHg (75-100); ARTERIAL BLOOD GAS VENT MODE A/C; ARTERIAL BLOOD GAS pH 7.27 (7.35-7.45); CARBOXYHEMOGLOBIN 1.2 % THgb (0.0-6.9); HGB O2 SAT 95.7 g/dF (94-100); Methhemoglobin 0.9 % (1.4-1.5)
[2020-04-03] MEDS ORDERED: Sodium Chloride 0.9% 150 ML 150 ML IV ONE (23:03)
[2020-04-03 23:04] LABS: ALBUMIN 2.2 g/dL (3.5-5.0); ANION GAP 15.4 MEQ/L (5-15); BILIRUBIN,TOTAL 1.7 mg/dL (0.2-1.3); Creatinine 1 1.39 mg/dL (0.52-1.04); EST GLOMERULAR FILTRATION RATE 38.8 ML/MIN; Potassium 3.6 mmol/L (3.5-5.1); Total Protein 4.6 g/dL (6.3-8.2)
[2020-04-03 23:15] LABS: Hematocrit 38.7 % (35-47); Hemoglobin 12.3 gm/dl (12.0-16.0); Mean Corpuscular Hemoglobin 30.8 pg (26-32); Mean Corpuscular Hgb Concent. 31.8 g/dl (32-36); Mean Platelet Volume 9.4 fl (7.5-11.0); Platelet Count 190 K/mm3 (150-450); Red Blood Count 3.99 M/mm3 (4.1-5.4); Red Cell Distribution Width 13.5 % (11.5-14.0)
[2020-04-03 23:20] LABS: Calcium 7.6 mg/dL (8.4-10.2)
[2020-04-03] MEDS: PHENYLEPHRINE HCL 10 MG in Dextrose 5%/Water IV Soln. 250 ML 250 ML IV PRN (23:20)
[2020-04-03 23:21] LABS: White Blood Count 1.5 K/mm3 (4.0-10.5)
[2020-04-03] MEDS: SUBLIMAZE 1000 Mcg/ 20 Ml*** 1,500 MCG in Sodium Chloride 0.9% 150 ML 120 ML IV SCH (23:30)
[2020-04-04] MEDS ORDERED: PHENYLEPHRINE HCL ONE ×4 (00:23→04:52)
[2020-04-04] MEDS ORDERED: Dextrose 5%/Water IV Soln. 250 ML 250 ML IV ONE ×2 (00:27→02:19)
[2020-04-04] MEDS: Propofol 1000 mg/100 ml Bottle 100 ML IV PRN ×4 (00:33→12:13)
[2020-04-04] MEDS ORDERED: NORCO 5/325 MG PO PRN (00:43)
[2020-04-04] MEDS ORDERED: Zofran 4 MG/2 ML VIAL IV PRN (00:47)
[2020-04-04 01:04] LABS: A-aADO2 295; ABG HEMOGLOBIN 11.2; ARTERIAL BLD GAS O2 SATURATION 99.7 % (95-100); ARTERIAL BLOOD GAS BASE EXCESS -6.1 (-2.0-2.0); ARTERIAL BLOOD GAS FIO2 100 %; ARTERIAL BLOOD GAS PCO2 35 mmHg (35-45); ARTERIAL BLOOD GAS PO2 374 mmHg (75-100); ARTERIAL BLOOD GAS pH 7.34 (7.35-7.45); HCO3- 18.9 (22-28); HGB O2 SAT 97.6 g/dF (94-100); Methhemoglobin 1.2 % (1.4-1.5); paO2 pAO1 0.56
[2020-04-04 01:05] LABS: ABG POTASSIUM 2.9 (3.5-5.1); ABG SITE LINE
[2020-04-04 01:07] LABS: A-aADO2 513; ABG HEMOGLOBIN 11.4; ABG POTASSIUM 3.3 (3.5-5.1); ABG SITE LINE; ARTERIAL BLOOD GAS BASE EXCESS -8.2 (-2.0-2.0); ARTERIAL BLOOD GAS FIO2 100 %; ARTERIAL BLOOD GAS PCO2 34 mmHg (35-45); ARTERIAL BLOOD GAS PO2 158 mmHg (75-100); ARTERIAL BLOOD GAS pH 7.31 (7.35-7.45); CARBOXYHEMOGLOBIN 0.8 % THgb (0.0-6.9); HCO3- 17.1 (22-28); HGB O2 SAT 97.1 g/dF (94-100); Methhemoglobin 1.1 % (1.4-1.5); paO2 pAO1 0.24
[2020-04-04 01:08] LABS: A-aADO2 151; ABG HEMOGLOBIN 11.1; ABG POTASSIUM 3.5 (3.5-5.1); ARTERIAL BLOOD GAS BASE EXCESS -5.8 (-2.0-2.0); ARTERIAL BLOOD GAS FIO2 50 %; ARTERIAL BLOOD GAS PCO2 32 mmHg (35-45); ARTERIAL BLOOD GAS PO2 166 mmHg (75-100); ARTERIAL BLOOD GAS pH 7.37 (7.35-7.45); CARBOXYHEMOGLOBIN 0.8 % THgb (0.0-6.9); HCO3- 18.5 (22-28); HGB O2 SAT 97.1 g/dF (94-100); Methhemoglobin 1.1 % (1.4-1.5); paO2 pAO1 0.52
[2020-04-04 01:09] LABS: ABG SITE LINE
[2020-04-04] MEDS: PHENYLEPHRINE HCL 10 MG in Dextrose 5%/Water IV Soln. 250 ML 250 ML IV PRN ×5 (01:29→06:29)
[2020-04-04] MEDS: SUBLIMAZE 1000 Mcg/ 20 Ml*** 1,500 MCG in Sodium Chloride 0.9% 150 ML 120 ML IV SCH ×2 (01:38→10:55)
[2020-04-04] MEDS ORDERED: Zosyn 3.375 GM Vial IV ONE ×2 (01:47→06:29)
[2020-04-04] MEDS ORDERED: Sodium Chloride 100ML MINI-BAG PLUS 100 ML IV ONE ×2 (01:48→06:30)
[2020-04-04] MEDS: Zosyn 3.375 GM Vial 3.375 GM in Sodium Chloride 100ML MINI-BAG PLUS 100 ML IV SCH ×3 (01:51→11:26)
[2020-04-04] MEDS: FLAGYL 500 MG IVPB 500 MG/100 ML BAG IV SCH ×2 (03:17→04:05)
[2020-04-04] MEDS: Sodium Chloride 0.9% 1000 ML 1,000 ML IV SCH (04:04)
[2020-04-04 05:04] LABS: Hematocrit 34.8 % (35-47); Hemoglobin 11.2 gm/dl (12.0-16.0); Mean Cell Volume 95.9 fl (78-100); Mean Corpuscular Hemoglobin 30.9 pg (26-32); Mean Corpuscular Hgb Concent. 32.2 g/dl (32-36); Mean Platelet Volume 9.8 fl (7.5-11.0); Platelet Count 208 K/mm3 (150-450); Red Blood Count 3.63 M/mm3 (4.1-5.4); Red Cell Distribution Width 13.7 % (11.5-14.0); White Blood Count 3.3 K/mm3 (4.0-10.5)
[2020-04-04 05:08] LABS: A-aADO2 174; ABG HEMOGLOBIN 11.8; ABG POTASSIUM 3.2 (3.5-5.1); ABG SITE LINE; ARTERIAL BLD GAS O2 SATURATION 99.8 % (95-100); ARTERIAL BLD GAS TIDAL VOLUME 650 cc; ARTERIAL BLOOD GAS BASE EXCESS -5.6 (-2.0-2.0); ARTERIAL BLOOD GAS FIO2 50 %; ARTERIAL BLOOD GAS PCO2 30 mmHg (35-45); ARTERIAL BLOOD GAS PO2 145 mmHg (75-100); ARTERIAL BLOOD GAS VENT MODE A/C; ARTERIAL BLOOD GAS VENT RATE 16 /MIN; ARTERIAL BLOOD GAS pH 7.39 (7.35-7.45); CARBOXYHEMOGLOBIN 1.1 % THgb (0.0-6.9); HCO3- 18.2 (22-28); HGB O2 SAT 97.7 g/dF (94-100); paO2 pAO1 0.45
[2020-04-04 05:13] LABS: ALBUMIN 1.9 g/dL (3.5-5.0); ANION GAP 9.3 MEQ/L (5-15); BILIRUBIN,TOTAL 0.9 mg/dL (0.2-1.3); Calcium 7.3 mg/dL (8.4-10.2); Creatinine 1 1.55 mg/dL (0.52-1.04); EST GLOMERULAR FILTRATION RATE 34.2 ML/MIN; MAGNESIUM 1.4 mg/dL (1.6-2.3); Potassium 3.3 mmol/L (3.5-5.1)
[2020-04-04] MEDS: Lactated Ringers 1,000 ML IV SCH ×2 (05:18→10:20)
[2020-04-04 06:28] LABS: BAND 55 % (0.0-2.0); Lymphocytes 27 % (24-44); Metamyelocyte 4 %; Monocyte 6 % (0.0-12.0); Neutrophils 8 % (36.0-66.0); Platelet Estimate NORMAL (NORMAL); Total Cells Counted 100
[2020-04-04 06:29] LABS: Toxic Granulation 2+
[2020-04-04] MEDS ORDERED: EPINEPHRINE IV PRN (06:45)
[2020-04-04] MEDS ORDERED: SODIUM CHLORIDE 0.9% IV PRN (06:45)
[2020-04-04] MEDS ORDERED: PHARMACY DOSING REQUEST MC ONE (06:47)
[2020-04-04 07:34] VITALS: O2SAT 95
[2020-04-04] MEDS: LEVOPHED 4 MG/4 ML 4,000 MCG in Dextrose 5%/Water IV Soln. 500 ML 500 ML IV PRN ×2 (07:50→12:13)
[2020-04-04] MEDS ORDERED: Potassium Chloride 40 MEQ/20 ML VIAL 40 MEQ, Magnesium Sulfate 1 GM/2 ML VIAL*** 2 GM i... IV SCH ×3 (08:00)
[2020-04-04] MEDS ORDERED: HUMALOG SQ PRN (08:33)
[2020-04-04] MEDS ORDERED: Morphine PCA 1 MG/ML 30 ML IV PRN (09:00)
[2020-04-04 09:16] LABS: TROPONIN 0.04 ng/mL (0.000-0.034)
--- NOTE | 2020-04-04 10:14 | CONS ---
CONSULT DATE: 04/03/2020 HISTORY: The patient is a morbidly obese female who now for a few days had some vague abdominal pain, feels like she is constipated. She was taking laxatives plus hydrocodone, Zofran. She came in and had work up in the emergency room that showed perforated viscus, pneumoperitoneum of unclear etiology. She did have a bowel movement this morning. PAST MEDICAL HISTORY: Chronic pain, coronary artery disease, hypertension. She had myocardial infarction in the past. She had high cholesterol in the past. Osteoarthritis, sinus surgery, renal insufficiency, arthritis, cardiac catheterization in the past. She said she always had bowel problems in the past. She reported that she may have had atrial fibrillation in the past and was on aspirin. No other blood thinners. PAST SURGICAL HISTORY: Coronary stent placement in the past, cholecystectomy in the past. Evacuation of hematoma left ankle in the past. MEDICATIONS: Vitamin D2, Klor-Con, Zyloprim, Bumex, Toprol, gabapentin, hydrocodone, Atarax. ALLERGIES: CODEINE. ERYTHROMYCIN BASE. LATEX. FAMILY HISTORY: She denies personal or family history of inflammatory bowel disease. SOCIAL HISTORY: No smoking or alcohol abuse. REVIEW OF SYSTEMS: Fourteen systems reviewed pertinent for as noted above. PHYSICAL EXAMINATION: GENERAL: Uncomfortable otherwise no acute distress. HEENT: Sclera nonicteric. NECK: No JVD. CHEST: Equal excursion, nonlabored breathing. CVS: Regular rate and rhythm. ABDOMEN: Morbidly obese, generalized tenderness with some rebound. EXTREMITIES: No cyanosis. NEURO: Alert, moving extremities grossly symmetrically. PSYCH: Appropriate mood and affect. LAB DATA AND TESTS: White count 5.4, hemoglobin 13.2, PLT 220,000. ALT 17, AST 30. Lipase 119, amylase 69. IMPRESSION: Acute abdomen, perforated viscus unclear whether ulcer, colon, small bowel or other etiology. I feel she needs emergent exploratory laparotomy involving the free air. Risk of bleeding, infection, risk of wound complication, hernia or dehiscence, risk of adhesion or obstruction, possible need for bowel resection, possible need for ostomy pending on site and degree of contamination. She also understands the possibility if an ulcer may try patching and risk of leak if fistula formation. She understands that there is a real risk of ongoing infection or sepsis possibly requiring other treatments. She also understands that there is a real risk of ongoing medical problems cardiopulmonary and complications given her obesity and multiple medical problems. She is agreeable to the plan, will proceed with OR time is available, as soon as possible as I was tied up doing procedures at [facility].
--- NOTE | 2020-04-04 10:28 | OP ---
SURGERY DATE/TIME: 04/03/2020 2893 PREOPERATIVE DIAGNOSES: 1) Morbid obesity. 2) Perforated viscus, acute abdomen. POSTOPERATIVE DIAGNOSES: 1) Morbid obesity. 2) Perforated left colon, extensive feculent peritonitis. PROCEDURES: 1) Exploratory laparotomy. 2) Difficult take down of splenic flexure. 3) Partial left colectomy. 4) End colostomy. 5) Lavage extensive feculent peritonitis. SURGEON: Dr. Milad Steven. ANESTHESIA: General. ESTIMATED BLOOD LOSS: Less than 250 cc. INDICATIONS: As noted above. Risks and benefits explained in detail and not limited to and consent obtained. DESCRIPTION OF PROCEDURE AND FINDINGS: The patient is taken to the operating room. General anesthesia introduced. Anesthesia placed central line perioperatively. She was prepped and draped in usual sterile fashion. After official time out and no disagreement with planned procedure, a midline incision made. Additionally, the fluid seemed a little bit thinner like possibly a more proximal perforation. However, there were extensive adhesions from a prior cholecystectomy over the duodenum but there is no evidence of perforation there. Exploration in the small bowel did not reveal any obvious perforation of the small bowel. There was a definite perforation descending colon. Whether this is a perforated tip or not, there did not appear to be any palpable mass. This area was resected with DARÍO stapler with the mesentery taken down and ligated with LigaSure device staying close the mesentery as this did not appear to be an obvious cancerous-type situation. Because of the extensive feculent peritonitis noted in the small bowel down in the pelvis, it was felt not safe to do re-anastomosis. Therefore it was felt colostomy was indicated given her ill state. Therefore we began taking down the splenic flexure which actually somewhat difficult. Given her obesity she had some cavernous, large omental veins here that took quite some time to control with ligature and the LigaSure device. Given the omental scarring and caking in this area given her extensive obesity. At the splenic flexure slowly and carefully mobilized upwards allowing enough length for the end of the remaining descending colon to come up to the skin level in this obese patient. The bowel appeared to be viable. There did not appear to be any other gross perforations. Copious amount of sterile, warm irrigation is then accomplished, irrigating feculent peritonitis as well as possible. Drains are placed above in the pelvis and right lower quadrant, right upper quadrant to the right upper quadrant drain site and left lower quadrant drain extending up towards lateral to the ostomy site. The colostomy is then brought up in the left upper quadrant through a sutured incision. It appeared to be tension-free and viable. It should be noted copious amount of irrigation irrigating clear. The splenic flexure had good hemostasis. The ostomy is brought up and left in a Alley clamp. At this point copious amount of irrigation accomplished irrigating clear. After the drains were placed, gloves and instruments were changed. The omentum is laid over top of the small bowel with visceral protector carefully inserted. Sequential looped 0 PDS used to close the fascia. Subcu irrigated out with copious amount of sterile saline. The skin is loosely stapled and some Iodoform packing placed to allow for any drainage, given her obesity and contaminated intra-abdominal cavity. The ostomy was matured with 3-0 and 4-0 Vicryl in a nipple fashion and appeared to be viable and tension-free. The drains had been secured with PDS suture earlier. The patient will be given sterile dressing and binder. There were no immediate complications. The patient is quite ill given her feculent peritonitis. Anesthesia is planning on leaving her on a ventilator and consult the irrigation supervisor. We discussed the findings with the family out in the waiting area.
[2020-04-04] MEDS ORDERED: PROTONIX 40 MG IV IV SCH (11:00)
[2020-04-04 11:07] VITALS: PULSE 69
[2020-04-04 12:09] VITALS: BP 95/43
[2020-04-04] MEDS ORDERED: ENOXAPARIN SODIUM SQ SCH (13:00)
== END 2020-04-04 12:57 | disposition short-term general hospital (02) | DRG 329 ==
LOC: ED 12:04 → SDC 17:34 → ICU 21:29
PROVIDERS: ADMIT Family Medicine; ATTEND Family Medicine
PROC: 0DBG0ZZ Excision of Left Large Intestine, Open Approach (ICD-10-PCS; principal; 2020-04-03)
DX: K63.1 Perforation of intestine (nontraumatic) (principal); K65.9 Peritonitis, unspecified; I10 Essential (primary) hypertension; R11.2 Nausea with vomiting, unspecified; R53.1 Weakness; E78.00 Pure hypercholesterolemia, unspecified; I25.10 Atherosclerotic heart disease of native coronary artery without angina pectoris; E66.01 Morbid (severe) obesity due to excess calories
CPT/HCPCS: 36000; 36415; 36600; 51702; 71045; 74176; 76937; 80053; 81001; 82150; 82375; 82533; 82803; 82947; 83036; 83605; 83690; 83735; 83880; 84145; 84484; 85025; 85027; 85610; 87070; 87077; 87086; 87186; 93005; 94002; 94799; 96360; 96365; 96374; 96375; 96376; 99285; J0171; J0330; J0694; J2250; J2370; J2405; J2704; J3010; J3475; J3480; P9047

== ENCOUNTER 2020-08-29 09:03 | Day surgery (SDC) | payer MEDICARE ==
[~2020-08-29 09:03] MED LIST changes: -DIPRIVAN 200 MG/20 ML IV ONE; -Ketamine HCl 50 MG/ML ONE; +Lactated Ringers 1,000 ML IV SCH
[2020-08-29] MEDS ORDERED: Sodium Chloride 0.9% 500 ML 500 ML IV SCH (09:15)
[2020-08-29 10:11] LABS: ANION GAP 13.4 MEQ/L (5-15); Calcium 9.5 mg/dL (8.4-10.2); Creatinine 1 2.21 mg/dL (0.52-1.04); EST GLOMERULAR FILTRATION RATE 22.7 ML/MIN; Potassium 3.5 mmol/L (3.5-5.1)
--- NOTE | 2020-08-29 11:15 | HP ---
PROCEDURE DATE: 08/29/2020 HISTORY OF PRESENT ILLNESS: Patient is an 80 y/o who had perforated diverticulitis/peritonitis. Underwent resection and ostomy. Now in need of follow-up colonoscopy for further evaluation. PAST MEDICAL HISTORY: As noted above and obesity, heart disease. Had some Atrial fibrillation in the past and hypertension. Anxiety in the past. CURRENT MEDICATIONS: Amiodarone, allopurinol, Bumex, Eliquis, Cholecalciferol, hydrocodone, Klor-Con, Mag-Ox, metoprolol, Pepcid, Prozac, Vistaril. ALLERGIES: LATEX, ERYTHROMYCIN, CODEINE. PAST SURGICAL HISTORY: Had colon resection and ostomy. She had a cholecystectomy. She had foot surgery and sinus surgery. FAMILY HISTORY: Cancer. SOCIAL HISTORY: No alcohol abuse. REVIEW OF SYSTEMS: 14 systems reviewed pertinent for as noted above. PHYSICAL EXAMINATION: GENERAL: No acute distress. Chronically ill female. HEENT: Sclerae nonicteric. NECK: No JVD. CHEST: Equal excursion. Nonlabored breathing. CVS: Regular rate and rhythm. ABDOMEN: Soft, obese, possibly bile stool today. Ostomy is viable. Stool in the bag. EXTREMITIES: No cyanosis. NEURO: Alert, moving extremities symmetrically. PSYCH: mood and affect. IMPRESSION: 1. PERFORATED DIVERTICULITIS AND RESECTION WITH OSTOMY IN NEED OF FOLLOW-UP COLONOSCOPY FOR FURTHER EVALUATION. Risks and benefits explained in detail including bleeding; infection; risk of bowel injury or perforation possibly requiring open procedure; risk of missed or nondiagnosis or incomplete exam possibly requiring barium enema or other studies or procedures; general risk of anesthesia or sedation; risk of bowel prep, but not limited to. Consent obtained. Will proceed with outpatient colonoscopy.
[2020-08-29] MEDS ORDERED: DIPRIVAN 200 MG/20 ML IV ONE (11:55)
[2020-08-29 13:58] VITALS: BP 127/56; PULSE 50; O2SAT 100
--- NOTE | 2020-08-30 11:16 | OP ---
SURGERY DATE: 08/29/2020 SURGERY TIME: 1158 PREOPERATIVE DIAGNOSIS: 1. HISTORY OF PRIOR PERFORATED DIVERTICULITIS STATUS POST RESECTION AND OSTOMY. 2. HISTORY OF PERITONITIS IN THE PAST. 3. NEED FOR FOLLOW-UP COLONOSCOPY. POSTOPERATIVE DIAGNOSIS: 1. SMALL POLYPS DESCENDING COLON AND TRANSVERSE COLON. 2. CLASS III. 3. MILD DIVERTICULOSIS. 4. POOR PREP TO RECTOSIGMOID STUMP LIMITING THE EXAM. PROCEDURE: 1. Colonoscopy through anus to rectosigmoid and the stump. 2. Colonoscopy through her ostomy to the cecum. 3. Hot biopsy polypectomy ascending colon polyps X 2. 4. Hot biopsy polypectomy small transverse colon polyp. SURGEON: Dr. Milad Steven. ANESTHESIA: MAC. ESTIMATED BLOOD LOSS: Minimal. INDICATIONS: As noted above. Risks and benefits explained in detail, but not limited to. Consent obtained. DESCRIPTION OF PROCEDURE AND FINDINGS: The patient was taken to the endoscopy room. MAC anesthesia induced after official time-out. Digital rectal exam did not reveal any rectal masses. Video colonoscope inserted and passed up through the anus to the rectum and to the rectosigmoid stump. Very limited exam as she had large mucus and stool like balls in there. Very limited exam. There did not appear to be any obvious obstructing mass or lesion. She did have these large mucus or stool balls that very much limited the exam. The scope was withdrawn. The scope was then passed through her ostomy in the left abdomen up through the descending colon, transverse colon, ascending colon to cecum. Appendiceal orifice and bowel wall visualized and photo documented. The scope was then carefully withdrawn. There were 2 small polyps in the proximal ascending colon removed with hot biopsy forceps and brief bursts of cautery. Good hemostasis noted. There was one small polyp in the transverse colon removed with hot biopsy forceps and brief bursts of cautery. There were no signs of any large polyps, masses, or obstructing lesions. She did have some mild diverticulosis in the left colon. Prep was fair with a large amount of liquidy stool limiting the exam for small lesions. The scope was withdrawn. There were no immediate complications. Findings discussed with the family out in the waiting area. Will see her back in the office next week.
== END 2020-08-29 14:14 | disposition home or self-care (01) ==
LOC: SDC 09:03
PROVIDERS: ATTEND Surgery
DX: Z09 Encounter for follow-up examination after completed treatment for conditions other than malignant neoplasm (principal); Z90.49 Acquired absence of other specified parts of digestive tract; K57.30 Diverticulosis of large intestine without perforation or abscess without bleeding; K63.5 Polyp of colon; I10 Essential (primary) hypertension; Z79.899 Other long term (current) drug therapy
CPT/HCPCS: 36415; 80048; 88305; 99100; J2704

== ENCOUNTER 2020-10-19 14:49 | Day surgery (SDC) | payer MEDICARE ==
[2020-10-19] MEDS ORDERED: Depo-Medrol 40 MG/ML IM ONE (14:50)
[2020-10-19] MEDS ORDERED: BUPIVACAINE 0.5% VIAL IJ ONE (14:50)
[2020-10-19] MEDS ORDERED: Lactated Ringers 1,000 ML IV ONE (16:38)
[2020-10-19] MEDS ORDERED: DIPRIVAN 200 MG/20 ML IV ONE (16:42)
--- NOTE | 2020-10-19 21:14 | XRAY ---
Indication: Left knee injection. Intraoperative fluoroscopy provided for 4 seconds. Single digital spot image submitted for interpretation demonstrates needle tip projecting over the left femur intercondylar notch. Small amount of contrast injected for needle tip placement. Correlate with intraoperative findings/report.
--- NOTE | 2020-10-19 21:14 | XRAY ---
Indication: Right knee injection. Intraoperative fluoroscopy provided for 7 seconds. Single digital spot image submitted for interpretation demonstrates needle tip projecting over the right femur intercondylar notch. Small amount of contrast injected for needle tip placement. Correlate with intraoperative findings/report.
--- NOTE | 2020-10-20 08:39 | XRAY ---
7 seconds fluoroscopy time in surgery for intra-articular injection of the right knee.
--- NOTE | 2020-10-20 08:39 | XRAY ---
4 seconds fluoroscopy time in surgery for intra-articular injection of the left knee.
== END 2020-10-19 17:10 | disposition home or self-care (01) ==
LOC: SDC-PAIN 14:49
PROVIDERS: ATTEND Psychiatry & Neurology Pain Medicine
DX: M17.0 Bilateral primary osteoarthritis of knee (principal); Z79.899 Other long term (current) drug therapy
CPT/HCPCS: 20610; 73560; 77002; J1030; J2704; Q9966

== ENCOUNTER 2021-07-24 10:21 | Emergency (ER) | payer MEDICARE ==
[2021-07-24] MEDS ORDERED: ATROPINE SULFATE 1MG SYR ABBOJECT ONE (10:34)
[2021-07-24] MEDS ORDERED: ATROPINE SULFATE 1MG IV ONE (10:34)
[2021-07-24 11:17] LABS: Absolute Neutrophil Ct (ANC) 4.62 (1.4-6.9); Basophil (Absolute #) 0.06 (0-0.4); Eosinophil % 3.6 % (0.00-5.0); Eosinophil (Absolute #) 0.28 (0-0.5); Hematocrit 42.6 % (35-47); Hemoglobin 13.8 gm/dl (12.0-16.0); Lymphocyte (Absolute #) 1.85 (1.0-4.6); Lymphocytes % 23.6 % (24.0-44.0); Mean Cell Volume 101.4 fl (78-100); Mean Corpuscular Hemoglobin 32.9 pg (26-32); Mean Corpuscular Hgb Concent. 32.4 g/dl (32-36); Mean Platelet Volume 11.3 fl (7.5-11.0); Monocyte (Absolute #) 1.03 (0.0-1.3); Monocytes % 13.1 % (0.0-12.0); Neutrophil % 58.9 % (36.0-66.0); Platelet Count 224 K/mm3 (150-450); Red Cell Distribution Width 14.1 % (11.5-14.0); White Blood Count 7.8 K/mm3 (4.0-10.5)
--- NOTE | 2021-07-24 11:20 | XRAY ---
Indication: Status post fall. Multiple contiguous axial images obtained through the head without contrast. Comparison: None Age-appropriate global atrophy and mild periventricular degenerative micro-ischemia bilaterally. No acute intracranial hemorrhage, abnormal extra-axial fluid collection, or mass effect. Fourth ventricle is midline without hydrocephalus. Bony calvarium intact. Visualized paranasal sinuses and mastoid air cells are clear. Impression: Nonacute senile brain.
--- NOTE | 2021-07-24 11:32 | XRAY ---
Indication: Status post fall. Comparison: April 03, 2020. Portable apical lordotic chest underinflated and clear. Heart not enlarged for AP portable technique. Bony thorax intact again with mild osteopenia and degenerative changes. Impression: Nonacute underinflated chest with chronic features.
[2021-07-24 11:33] LABS: INR 1.14 (0.8-3.0); PROTIME 11.9 SECONDS (9.4-12.5); PTT 25.6 SECONDS (25.1-36.5)
--- NOTE | 2021-07-24 11:34 | XRAY ---
Indication: Status post fall. Comparison: None 3 nonweightbearing views right foot demonstrates mild osteopenia, large posterior/small plantar heel spurs, and tiny accessory ossicle base 5th metatarsal. No other bony, articular, or soft tissue abnormalities.
--- NOTE | 2021-07-24 11:36 | XRAY ---
Indication: Status post fall. Comparison: None 3 view right knee demonstrates osteopenia, mild/moderate tricompartmental degenerative changes greatest medial compartment, and mild vascular calcifications. No other bony, articular, or soft tissue abnormalities.
[2021-07-24 11:46] LABS: ALBUMIN 3.5 g/dL (3.5-5.0); ANION GAP 9.2 MEQ/L (5-15); BILIRUBIN,TOTAL 1.3 mg/dL (0.2-1.3); Creatinine 1 2.81 mg/dL (0.52-1.04); EST GLOMERULAR FILTRATION RATE 17.2 ML/MIN; Potassium 3.3 mmol/L (3.5-5.1); Total Protein 7.2 g/dL (6.3-8.2)
[2021-07-24 11:57] LABS: Calcium 12.1 mg/dL (8.4-10.2)
[2021-07-24 12:10] LABS: INFLUENZA A NEGATIVE (NEGATIVE); INFLUENZA B NEGATIVE (NEGATIVE); RESPIRATORY SYNCTIAL VIRUS NEGATIVE (Negative); SARS-CoV-2 Xpert Express NEGATIVE (NEGATIVE)
[2021-07-24 12:23] LABS: Epithelial Cells RARE /HPF (FEW); Mucus SLIGHT /HPF (NEGATIVE)
[2021-07-24 12:25] LABS: Urine Cultured Indicated? NO
[2021-07-24 12:26] LABS: Appearance CLEAR (CLEAR); Bilirubin NEGATIVE (NEGATIVE); Glucose NEGATIVE (NEGATIVE); Ketones NEGATIVE (NEGATIVE); Nitrite NEGATIVE (NEGATIVE); Protein,Urine Dip NEGATIVE (Negative); RBC NEGATIVE Ery/ul (0-5); Specific Gravity 1.025 (1.005-1.025); Urobilinogen 0.2 mg/dL (0-1)
[2021-07-24 12:27] LABS: Dipstick done @ ? MAIN LAB
[2021-07-24 12:59] LABS: Amphetamine,Urine NEGATIVE (NEGATIVE); Barbiturate,Urine NEGATIVE (NEGATIVE); Benzodiazepine,Urine NEGATIVE (NEGATIVE); Cocaine,Urine NEGATIVE (NEGATIVE); Methadone,Urine NEGATIVE (NEGATIVE); Opiate,Urine NEGATIVE (NEGATIVE); PCP,Urine NEGATIVE (NEGATIVE); THC,Urine NEGATIVE (NEGATIVE)
--- NOTE | 2021-07-24 13:02 | ERPHSYRPT ---
- History of Present Illness Source: patient, EMS Exam Limitations: no limitations Patient Subjective Stated Complaint: Patient fell out of wheelchair home and hit right knee. Patient states no LOC today. Emergency personel states he is alert and oriented, but family states she has altered mental status Triage Nursing Assessment: Patient to ED with fall from wheelchair and HR 40. No swelling on R knee where patient states she fell. Patient oriented to person and place. Physician History: 81 yo wf fell getting out of her lift chair at home injuring her R knee. EMS reports that she has had some altered mental status over the weekend but is alert/oriented x3 upon arrival. Pt denies head injury/syncope/C,T, L-spine pain/Hip pain/upper extremity pain/fever/cough/focal weakness. Pt's heart rate in mid-low 40's upon arrival. Occurred: just prior to arrival Reason for Fall: tripped Injuries/Pain Location: lower (R knee) Loss of Consciousness: no loss of consciousness Quality: aching Severity of Pain-Max: moderate Severity of Pain-Current: moderate Modifying Factors: Improves With: movement Associated Symptoms (Fall): extremity injury, trouble walking, No abdominal pain, No back pain, No confusion, No chest pain, No dizziness, No headache, No lightheadedness, No muscle spasms, No nausea, No neck pain, No ringing in ears, No seizures, No shortness of breath, No slurred speech, No vomiting, No vision changes Allergies/Adverse Reactions: codeine Allergy (Verified 08/29/20 09:13) erythromycin base Allergy (Verified 08/29/20 09:13) latex Allergy (Verified 08/29/20 09:13) Home Medications: Potassium Chloride [Klor-Con 10] 10 meq PO BID 12/07/15 [History] Allopurinol 100 mg [Zyloprim 100 mg] 100 mg PO DAILY 12/03/17 [History] Bumetanide 1 mg [Bumex 1 mg] 1 mg PO BID 12/03/17 [History] Hydrocodone/Acetaminophen [Hydrocodone-Acetamin 10-325 mg^^^] 1 tab PO Q8H PRN 04/03/20 [History] Hydroxyzine HCl 25 mg [Atarax 25 mg] 25 mg PO DAILY 04/03/20 [History] Amiodarone HCl 200 mg PO DAILY 08/10/20 [History] Apixaban [Eliquis 2.5 mg Tablet] 2.5 mg PO BID 08/10/20 [History] Famotidine 20 mg PO DAILY 08/10/20 [History] Fluoxetine HCl 20 mg [Prozac 20 MG] 20 mg PO DAILY 08/10/20 [History] Gabapentin 100 mg [Neurontin 100 MG] 100 mg PO DAILY 08/10/20 [History] Magnesium Oxide 400 mg [Mag-Ox 400] 400 mg PO DAILY 08/10/20 [History] Metoprolol Tartrate 25 mg [Lopressor 25MG Tab] 25 mg PO DAILY PRN PRN 08/10/20 [History] Spironolactone 25 mg PO BID 08/10/20 [History] Metolazone 2.5 mg [Zaroxolyn 2.5 MG] 2.5 mg PO DAILY 07/24/21 [History] Hx Tetanus, Diphtheria Vaccination/Date Given: No Hx Influenza Vaccination/Date Given: No Hx Pneumococcal Vaccination/Date Given: No Immunizations Up to Date: Yes Travel Risk - International Travel Have you traveled outside of the country in past 3 weeks: No - Coronavirus Screening Are you exhibiting any of the following symptoms?: No Close contact with a COVID-19 positive Pt in past 14-21 Days: No - Vaccine Status Have you recieved a Covid-19 vaccination: Yes 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: [employer] - Vaccination Dates Date of 2cond Vaccination (if applicable): unknown - Review of Systems Constitutional: No Symptoms Eyes: No Symptoms Ears, Nose, & Throat: No Symptoms Respiratory: No Symptoms Cardiac: No Symptoms Abdominal/Gastrointestinal: No Symptoms Genitourinary Symptoms: No Symptoms Skin: No Symptoms Neurological: No Symptoms Psychological: No Symptoms Endocrine: No Symptoms Hematologic/Lymphatic: No Symptoms Immunological/Allergic: No Symptoms - Past Medical History Pertinent Past Medical History: Yes Neurological History: No Pertinent History ENT History: Cataracts Cardiac History: Congestive Heart Failure, Coronary Artery Disease, High Cholesterol, Hypertension, Myocardial Infarction ([place]) Respiratory History: Sleep Apnea Endocrine Medical History: Other Musculoskeletal History: Osteoarthritis GI Medical History: Gallbladder Disease History: Renal Disease Psycho-Social History: No Pertinent History Female Reproductive Disorders: No Pertinent History Other Medical History: 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, perforated bowel - Past Surgical History Past Surgical History: Yes Neuro Surgical History: No Pertinent History Cardiac: Cardiac Catheterization, Cardiac Stent Respiratory: No Pertinent History Gastrointestinal: Cholecystectomy, Colon Resection, Other Genitourinary: No Pertinent History Musculoskeletal: Other Female Surgical History: No Pertinent History Other Surgical History: Sinus Surgery, Left Heel Surgery-hematoma - Social History Smoking Status: Never smoker Exposure to second hand smoke: No Drug Use: none Patient Lives Alone: Yes Significant Family History: no pertinent family hx - Nursing Vital Signs Nursing Vital Signs: Initial Vital Signs Temperature 97.4 F 07/24/21 10:21 Pulse Rate 40 L 07/24/21 10:21 O2 Sat by Pulse Oximetry 99 07/24/21 10:21 Pain Scale Pain Intensity 2 Bradycardia - [place] Coma Score Best Eye Response (Judy): (4) open spontaneously Best Verbal Response (Judy): (5) oriented Best Motor Response ([place]): (6) obeys commands [place] Total: 15 - Physical Exam General Appearance: no apparent distress Head Injury: no evidence of injury Eye Exam: PERRL/EOMI, eyes nml inspection ENT Exam: airway nml, No evidence of ENT injury, No clear fluid (ears), No clear fluid (nose) Neck Exam: supple, trachea midline, full range of motion, normal inspection, No focal neuro deficit, No muscle spasm, No paraspinous muscle tender, No pain on movement of neck, No stiff neck, No tenderness (C-spine nttp), No meningismus, No mass, No Brudzinski, No Kernig's Respiratory/Chest Exam: rales (B bases), No chest tenderness, No respiratory distress Cardiovascular Exam: normal peripheral pulses, bradycardia, No murmur Gastrointestinal Exam: soft, normal bowel sounds, other (Colostomy), No tenderness Back Exam: normal inspection, No normal range of motion, No CVA tenderness, No vertebral tenderness Extremity Exam: capillary refill <3 sec, pelvis stable, tenderness (R knee mildly ttp/No deformity/No edema/R great toe mildly ttp/No edema/No deformity) Peripheral Pulses: carotid (R): 2+, carotid (L): 2+ Neurologic Exam: alert, oriented x 3, cooperative, 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 as tested, normal mood/affect, sensation nml Skin Exam: normal color, warm, dry SpO2 Interpretation: normal SpO2: 98 O2 Delivery: Room Air - Course Nursing assessment & vital signs reviewed: Yes EKG Interpreted by Me: RATE (Sinus maxx/R40/Prolonged Qt-QTc/Poor Rwave progression/Flat Twaves/EKG#2 sinus maxx/Prolonged QT-QTc/Poor Rwave progression) - Radiology Exams Knee X-ray Interpretation: Discussed w/ radiologist (R knee DJD) Chest X-ray Interpretation: Discussed w/ radiologist (CXR NAD) Foot X-ray Interpretation: Discussed w/ radiologist (R foot nothing acute per Rad) - CT Exams Head CT Interpretation: Discussed w/radiologist (CT head nothing acute per Rad) Ordered Tests: Active Orders 24 hr Category Date Time Status EKG-ER Only STAT Care 07/24/21 10:34 Completed EKG-ER Only STAT Care 07/24/21 14:40 Completed IV Insertion STAT Care 07/24/21 10:34 Completed CHEST 1 VIEW (PORTABLE) Stat Exams 07/24/21 10:35 Completed FOOT (MINIMUM 3 VIEWS) Stat Exams 07/24/21 11:25 Completed HEAD WITHOUT CONTRAST [CT] Stat Exams 07/24/21 11:03 Completed KNEE (3 VIEWS) Stat Exams 07/24/21 11:25 Completed CBC W DIFF Stat Lab 07/24/21 11:05 Completed CMP Stat Lab 07/24/21 11:05 Completed Calcium Routine Lab 07/24/21 13:25 Completed Lactic Acid Stat Lab 07/24/21 10:36 Completed NT PRO BNP Stat Lab 07/24/21 11:05 Completed PROTIME WITH INR Stat Lab 07/24/21 11:05 Completed PTT Stat Lab 07/24/21 11:05 Completed TROPONIN Q3H Lab 07/24/21 11:06 Completed TROPONIN Q3H Lab 07/24/21 13:25 Completed UA W/RFX CULTURE Stat Lab 07/24/21 12:00 Completed Urine Triage Profile Stat Lab 07/24/21 12:22 Completed Medication Summary Discontinued Medications Generic Name Dose Route Start Last Admin Trade Name Freq PRN Reason Stop Dose Admin Atropine Sulfate 1 mg 07/24/21 10:34 07/24/21 10:37 Atropine Sulfate 1 Mg/1 Ml Vial IV 07/24/21 10:35 1 mg STAT ONE Administration Atropine Sulfate Confirm 07/24/21 10:34 Atropine Sulfate 1 Mg/10 Ml Abboject Administered 07/24/21 10:35 Dose 1 mg .ROUTE .STK-MED ONE Sodium Chloride 1,000 mls @ 999 mls/hr 07/24/21 13:49 07/24/21 14:55 Sodium Chloride 0.9% 1000 Ml IV 07/24/21 14:49 Infused .Q1H1M STA Infusion Sodium Chloride Confirm 07/24/21 13:51 Sodium Chloride 0.9% 1000 Ml Administered 07/24/21 13:52 Dose 1,000 mls @ ud .ROUTE .STK-MED ONE Lab/Rad Data: Laboratory Result Diagrams 07/24/21 11:05 07/24/21 11:05 Laboratory Results 07/24/21 07/24/21 07/24/21 Range/Units 13:25 12:22 12:00 WBC (4.0-10.5) K/mm3 RBC (4.1-5.4) M/mm3 Hgb (12.0-16.0) gm/dl Hct (35-47) % MCV (78-100) fl MCH (26-32) pg MCHC (32-36) g/dl RDW (11.5-14.0) % Plt Count (150-450) K/mm3 MPV (7.5-11.0) fl Gran % (36.0-66.0) % Eos # (Auto) (0-0.5) Absolute Lymphs (auto) (1.0-4.6) Absolute Monos (auto) (0.0-1.3) Lymphocytes % (24.0-44.0) % Monocytes % (0.0-12.0) % Eosinophils % (0.00-5.0) % Basophils % (0.0-0.4) % Absolute Granulocytes (1.4-6.9) Basophils # (0-0.4) PT (9.4-12.5) SECONDS INR (0.8-3.0) APTT (25.1-36.5) SECONDS Sodium (137-145) mmol/L Potassium (3.5-5.1) mmol/L Chloride (98-107) mmol/L Carbon Dioxide (22-30) mmol/L Anion Gap (5-15) MEQ/L BUN (7-17) mg/dL Creatinine (0.52-1.04) mg/dL Estimated GFR ML/MIN Glucose (74-106) mg/dL Lactic Acid (0.4-2.0) Calcium 11.3 H (8.4-10.2) mg/dL Total Bilirubin (0.2-1.3) mg/dL AST (14-36) U/L ALT (0-35) U/L Alkaline Phosphatase (38-126) U/L Troponin I 0.022 (0.000-0.034) ng/mL NT-Pro-B Natriuret Pep (0-1800) pg/mL Serum Total Protein (6.3-8.2) g/dL Albumin (3.5-5.0) g/dL Urinalys Dipstick Clnc MAIN LAB Urine Color YELLOW (YELLOW) Urine Appearance CLEAR (CLEAR) Urine pH 7.0 (5-6) Ur Specific [place] 1.025 (1.005-1.025) POC Urine Protein Conf NEGATIVE (Negative) Urine Ketones NEGATIVE (NEGATIVE) Urine Nitrite NEGATIVE (NEGATIVE) Urine Bilirubin NEGATIVE (NEGATIVE) Urine Urobilinogen 0.2 (0-1) mg/dL Urine Leukocytes NEGATIVE (NEGATIVE) Urine WBC (Auto) NONE (0-5) /HPF Urine RBC (Auto) NONE (0-2) /HPF U Hyaline Cast (Auto) 11-25 (0-2) /LPF U Epithel Cells (Auto) RARE (FEW) /HPF Urine Bacteria (Auto) NONE (NEGATIVE) /HPF Urine RBC NEGATIVE (0-5) Simone/ul Urine Mucus (Auto) SLIGHT (NEGATIVE) /HPF Ur Culture Indicated? NO Urine Glucose NEGATIVE (NEGATIVE) mg/dL Urine Opiates Level NEGATIVE (NEGATIVE) Ur Methadone NEGATIVE (NEGATIVE) Urine Barbiturates NEGATIVE (NEGATIVE) Ur Phencyclidine (PCP) NEGATIVE (NEGATIVE) Urine Amphetamine NEGATIVE (NEGATIVE) U Benzodiazepine Level NEGATIVE (NEGATIVE) Urine Cocaine NEGATIVE (NEGATIVE) Urine Marijuana (THC) NEGATIVE (NEGATIVE) Influenza Type A Ag (NEGATIVE) Influenza Type B Ag (NEGATIVE) RSV (PCR) (Negative) SARS-CoV-2 (PCR) (NEGATIVE) 07/24/21 07/24/21 07/24/21 Range/Units 11:30 11:06 11:05 WBC (4.0-10.5) K/mm3 RBC (4.1-5.4) M/mm3 Hgb (12.0-16.0) gm/dl Hct (35-47) % MCV (78-100) fl MCH (26-32) pg MCHC (32-36) g/dl RDW (11.5-14.0) % Plt Count (150-450) K/mm3 MPV (7.5-11.0) fl Gran % (36.0-66.0) % Eos # (Auto) (0-0.5) Absolute Lymphs (auto) (1.0-4.6) Absolute Monos (auto) (0.0-1.3) Lymphocytes % (24.0-44.0) % Monocytes % (0.0-12.0) % Eosinophils % (0.00-5.0) % Basophils % (0.0-0.4) % Absolute Granulocytes (1.4-6.9) Basophils # (0-0.4) PT 11.9 (9.4-12.5) SECONDS INR 1.14 (0.8-3.0) APTT 25.6 (25.1-36.5) SECONDS Sodium (137-145) mmol/L Potassium (3.5-5.1) mmol/L Chloride (98-107) mmol/L Carbon Dioxide (22-30) mmol/L Anion Gap (5-15) MEQ/L BUN (7-17) mg/dL Creatinine (0.52-1.04) mg/dL Estimated GFR ML/MIN Glucose (74-106) mg/dL Lactic Acid (0.4-2.0) Calcium (8.4-10.2) mg/dL Total Bilirubin (0.2-1.3) mg/dL AST (14-36) U/L ALT (0-35) U/L Alkaline Phosphatase (38-126) U/L Troponin I 0.025 (0.000-0.034) ng/mL NT-Pro-B Natriuret Pep (0-1800) pg/mL Serum Total Protein (6.3-8.2) g/dL Albumin (3.5-5.0) g/dL Urinalys Dipstick Clnc Urine Color (YELLOW) Urine Appearance (CLEAR) Urine pH (5-6) Ur Specific [place] (1.005-1.025) POC Urine Protein Conf (Negative) Urine Ketones (NEGATIVE) Urine Nitrite (NEGATIVE) Urine Bilirubin (NEGATIVE) Urine Urobilinogen (0-1) mg/dL Urine Leukocytes (NEGATIVE) Urine WBC (Auto) (0-5) /HPF Urine RBC (Auto) (0-2) /HPF U Hyaline Cast (Auto) (0-2) /LPF U Epithel Cells (Auto) (FEW) /HPF Urine Bacteria (Auto) (NEGATIVE) /HPF Urine RBC (0-5) Simone/ul Urine Mucus (Auto) (NEGATIVE) /HPF Ur Culture Indicated? Urine Glucose (NEGATIVE) mg/dL Urine Opiates Level (NEGATIVE) Ur Methadone (NEGATIVE) Urine Barbiturates (NEGATIVE) Ur Phencyclidine (PCP) (NEGATIVE) Urine Amphetamine (NEGATIVE) U Benzodiazepine Level (NEGATIVE) Urine Cocaine (NEGATIVE) Urine Marijuana (THC) (NEGATIVE) Influenza Type A Ag NEGATIVE (NEGATIVE) Influenza Type B Ag NEGATIVE (NEGATIVE) RSV (PCR) NEGATIVE (Negative) SARS-CoV-2 (PCR) NEGATIVE (NEGATIVE) 07/24/21 07/24/21 07/24/21 Range/Units 11:05 11:05 10:36 WBC 7.8 (4.0-10.5) K/mm3 RBC 4.20 (4.1-5.4) M/mm3 Hgb 13.8 (12.0-16.0) gm/dl Hct 42.6 (35-47) % MCV 101.4 H (78-100) fl MCH 32.9 H (26-32) pg MCHC 32.4 (32-36) g/dl RDW 14.1 H (11.5-14.0) % Plt Count 224 (150-450) K/mm3 MPV 11.3 H (7.5-11.0) fl Gran % 58.9 (36.0-66.0) % Eos # (Auto) 0.28 (0-0.5) Absolute Lymphs (auto) 1.85 (1.0-4.6) Absolute Monos (auto) 1.03 (0.0-1.3) Lymphocytes % 23.6 L (24.0-44.0) % Monocytes % 13.1 H (0.0-12.0) % Eosinophils % 3.6 (0.00-5.0) % Basophils % 0.8 (0.0-0.4) % Absolute Granulocytes 4.62 (1.4-6.9) Basophils # 0.06 (0-0.4) PT (9.4-12.5) SECONDS INR (0.8-3.0) APTT (25.1-36.5) SECONDS Sodium 137 (137-145) mmol/L Potassium 3.3 L (3.5-5.1) mmol/L Chloride 96 L (98-107) mmol/L Carbon Dioxide 35 H (22-30) mmol/L Anion Gap 9.2 (5-15) MEQ/L BUN 48 H (7-17) mg/dL Creatinine 2.81 H (0.52-1.04) mg/dL Estimated GFR 17.2 ML/MIN Glucose 110 H (74-106) mg/dL Lactic Acid 1.8 (0.4-2.0) Calcium 12.1 H* (8.4-10.2) mg/dL Total Bilirubin 1.30 (0.2-1.3) mg/dL AST 60 H (14-36) U/L ALT 37 H (0-35) U/L Alkaline Phosphatase 69 (38-126) U/L Troponin I (0.000-0.034) ng/mL NT-Pro-B Natriuret Pep 857 (0-1800) pg/mL Serum Total Protein 7.2 (6.3-8.2) g/dL Albumin 3.5 (3.5-5.0) g/dL Urinalys Dipstick Clnc Urine Color (YELLOW) Urine Appearance (CLEAR) Urine pH (5-6) Ur Specific [place] (1.005-1.025) POC Urine Protein Conf (Negative) Urine Ketones (NEGATIVE) Urine Nitrite (NEGATIVE) Urine Bilirubin (NEGATIVE) Urine Urobilinogen (0-1) mg/dL Urine Leukocytes (NEGATIVE) Urine WBC (Auto) (0-5) /HPF Urine RBC (Auto) (0-2) /HPF U Hyaline Cast (Auto) (0-2) /LPF U Epithel Cells (Auto) (FEW) /HPF Urine Bacteria (Auto) (NEGATIVE) /HPF Urine RBC (0-5) Simone/ul Urine Mucus (Auto) (NEGATIVE) /HPF Ur Culture Indicated? Urine Glucose (NEGATIVE) mg/dL Urine Opiates Level (NEGATIVE) Ur Methadone (NEGATIVE) Urine Barbiturates (NEGATIVE) Ur Phencyclidine (PCP) (NEGATIVE) Urine Amphetamine (NEGATIVE) U Benzodiazepine Level (NEGATIVE) Urine Cocaine (NEGATIVE) Urine Marijuana (THC) (NEGATIVE) Influenza Type A Ag (NEGATIVE) Influenza Type B Ag (NEGATIVE) RSV (PCR) (Negative) SARS-CoV-2 (PCR) (NEGATIVE) - Progress Progress Note: 07/24/21 14:59 1mg IV Atropine wo improvement in Heart Rate 07/24/21 15:00 1L NS bolus 07/24/21 15:17 Dr. Medel wants to transfer for symptomatic bradycardia 07/24/21 15:[address] Jade at [facility] for symptomatic bradycardia/Renal Failure Discussed with : Lucrecia Counseled pt/family regarding: lab results, diagnosis, need for follow-up, rad results - Departure Departure Disposition: Transfer Clinical Impression: Bradycardia, Renal failure, Hypercalcemia, Contusion of knee, right Condition: Stable Critical Care Time: No Referrals: GENOVEVA CASTELLANOS [Primary Care Provider] - Follow up/PCP as directed
[2021-07-24] MEDS ORDERED: Sodium Chloride 0.9% 1000 ML 1,000 ML IV STA (13:49)
[2021-07-24] MEDS ORDERED: Sodium Chloride 0.9% 1000 ML 1,000 ML ONE (13:51)
[2021-07-24 14:01] LABS: TROPONIN 0.022 ng/mL (0.000-0.034)
[2021-07-24 14:05] LABS: Calcium 11.3 mg/dL (8.4-10.2)
[2021-07-24 16:14] VITALS: BP 136/57; PULSE 45
[2021-07-24 18:57] VITALS: O2SAT 98
== END 2021-07-24 16:32 | disposition short-term general hospital (02) ==
LOC: ED 10:21
DX: R00.1 Bradycardia, unspecified (principal); E83.52 Hypercalcemia; N17.9 Acute kidney failure, unspecified; S80.01XA Contusion of right knee, initial encounter; W07.XXXA Fall from chair, initial encounter; M25.561 Pain in right knee; I13.0 Hypertensive heart and chronic kidney disease with heart failure and stage 1 through stage 4 chronic kidney disease, or unspecified chronic kidney disease; I50.9 Heart failure, unspecified; E78.5 Hyperlipidemia, unspecified; N18.30 Chronic kidney disease, stage 3 unspecified; Z79.01 Long term (current) use of anticoagulants; Z79.891 Long term (current) use of opiate analgesic; Z79.899 Other long term (current) drug therapy; Z20.828 Contact with and (suspected) exposure to other viral communicable diseases
CPT/HCPCS: 0241U; 36000; 36415; 70450; 71045; 73562; 73630; 80053; 80307; 81015; 82310; 83605; 83880; 84484; 85025; 85610; 85730; 93005; 96374; 99285; J0461

== ENCOUNTER 2021-08-16 20:33 | Emergency (ER) | payer MEDICARE ==
[2021-08-16 21:05] LABS: Absolute Neutrophil Ct (ANC) 4.37 x10^3/uL (1.4-6.9); Basophil (Absolute #) 0.04 x10^3/uL (0-0.4); Eosinophil (Absolute #) 0.13 x10^3/uL (0-0.5); Hematocrit 36.7 % (35-47); Hemoglobin 11.5 g/dL (12.0-16.0); Lymphocytes % 19.9 % (24.0-44.0); Mean Cell Volume 104.9 fL (78-100); Mean Corpuscular Hemoglobin 32.9 pg (26-32); Mean Corpuscular Hgb Concent. 31.3 g/dL (32-36); Mean Platelet Volume 9.6 fL (7.5-11.0); Monocyte (Absolute #) 0.69 x10^3/uL (0.0-1.3); Monocytes % 10.6 % (0.0-12.0); Neutrophil % 66.7 % (36.0-66.0); Platelet Count 270 x10^3/uL (150-450); Red Cell Distribution Width 14.8 % (11.5-14.0); White Blood Count 6.5 x10^3/uL (4.0-10.5)
[2021-08-16 21:27] LABS: ALBUMIN 2.8 g/dL (3.5-5.0); Calcium 8.7 mg/dL (8.4-10.2); Creatinine 1 1.63 mg/dL (0.52-1.04); EST GLOMERULAR FILTRATION RATE 32.2 ML/MIN; Potassium 4.1 mmol/L (3.5-5.1)
--- NOTE | 2021-08-16 21:36 | ERPHSYRPT ---
- History of Present Illness Time Seen by Provider: 08/16/21 20:40 Source: patient Exam Limitations: no limitations Patient Subjective Stated Complaint: pt's family states she has been increasingly short of breath today. states she has been wheezing since yesterday. Triage Nursing Assessment: pt alert and oriented, short of breath. pt unable to speak in full sentences on arrival. lung sounds clear. stridorous with movemenbt and exertion. skin warm and dry. Physician History: Patient is an 81-year-old female presents to emergency department for evaluation of shortness of breath. Patient has been experiencing progressive shortness of breath for the past couple days. Patient started wheezing yesterday. Symptoms have been progressive. Patient 90% on 2 L nasal cannula. Patient states she normally does not require oxygen. No associated chest pain. Patient that she is got a history of chronic renal insufficiency. Patient states her primary provider recently decreased her Lasix from 80 daily to 20 daily. Patient states since then she has been experiencing progressive shortness of breath. Patient has a history of congestive heart failure. She lives alone. Son at bedside states he is considering placing her in assisted living as she is having difficulty with her ADLs. Patient denies chest pain. No nausea vomiting or diaphoresis. Patient voices no other complaints concerns at this time. Timing/Duration: today Activities at Onset: activity Severity of Dyspnea-Max: moderate Severity of Dyspnea-Current: mild Possible Cause: occasional episodes Modifying Factors: Improves With: activity Associated Symptoms: leg swelling Allergies/Adverse Reactions: codeine Allergy (Unknown, Verified 08/16/21 20:56) erythromycin base Allergy (Unknown, Verified 08/16/21 20:56) latex Allergy (Unknown, Verified 08/16/21 20:56) Sulfa (Sulfonamide Antibiotics) Allergy (Unknown, Verified 08/16/21 20:56) Home Medications: Potassium Chloride [Klor-Con 10] 10 meq PO DAILY 12/07/15 [History] Allopurinol 100 mg [Zyloprim 100 mg] 100 mg PO DAILY 12/03/17 [History] Apixaban [Eliquis 2.5 mg Tablet] 2.5 mg PO BID 08/10/20 [History] Famotidine 20 mg PO BID 08/10/20 [History] Fluoxetine HCl 20 mg [Prozac 20 MG] 20 mg PO HS 08/10/20 [History] Acetaminophen 325 mg [Tylenol 325 mg] 650 mg PO Q4H PRN PRN 08/16/21 [History] Ergocalciferol (Vitamin D2) [Vitamin D2] 50,000 unit PO Q7D 08/16/21 [History] Fluticasone Propionate [Flonase NASAL] 1 spray NS BID 08/16/21 [History] Furosemide 20 mg [Lasix 20 mg] 20 mg PO DAILY 08/16/21 [History] Levothyroxine Sodium 50 Mcg [Synthroid 50 Mcg] 50 mcg PO DAILY 08/16/21 [History] Potassium Chloride [Klor-Con M20] 20 meq PO DAILY 08/16/21 [History] Hx Tetanus, Diphtheria Vaccination/Date Given: No Hx Influenza Vaccination/Date Given: Yes Hx Pneumococcal Vaccination/Date Given: Yes Immunizations Up to Date: No Travel Risk - International Travel Have you traveled outside of the country in past 3 weeks: No - Coronavirus Screening Are you exhibiting any of the following symptoms?: Yes Symptoms: Shortness of Breath Close contact with a COVID-19 positive Pt in past 14-21 Days: No - Vaccine Status Have you recieved a Covid-19 vaccination: Yes Unhairing Inspector: Moderna - Vaccination Dates Date of 2cond Vaccination (if applicable): unknown - Review of Systems Constitutional: No Symptoms, No Fever, No Chills Eyes: No Symptoms Ears, Nose, & Throat: No Symptoms Respiratory: No Symptoms, No Cough, No Dyspnea Cardiac: No Symptoms, No Chest Pain, No Edema, No Syncope Abdominal/Gastrointestinal: No Symptoms, No Abdominal Pain, No Nausea, No Vomiting, No Diarrhea Genitourinary Symptoms: No Symptoms, No Dysuria Musculoskeletal: No Symptoms, No Back Pain, No Neck Pain Skin: No Symptoms, No Rash Neurological: No Symptoms, No Dizziness, No Focal Weakness, No Sensory Changes Psychological: No Symptoms Endocrine: No Symptoms Hematologic/Lymphatic: No Symptoms Immunological/Allergic: No Symptoms All Other Systems: Reviewed and Negative - Past Medical History Pertinent Past Medical History: Yes Neurological History: No Pertinent History ENT History: Cataracts Cardiac History: Arrhythmia, Congestive Heart Failure, Coronary Artery Disease, High Cholesterol, Hypertension, Myocardial Infarction (MT) Respiratory History: Sleep Apnea Endocrine Medical History: Other Musculoskeletal History: Osteoarthritis GI Medical History: Gallbladder Disease History: Renal Disease Psycho-Social History: No Pertinent History Female Reproductive Disorders: No Pertinent History Other Medical History: 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, perforated bowel - Past Surgical History Past Surgical History: Yes Neuro Surgical History: No Pertinent History Cardiac: Cardiac Catheterization, Cardiac Stent Respiratory: No Pertinent History Gastrointestinal: Cholecystectomy, Colon Resection, Other Genitourinary: No Pertinent History Musculoskeletal: Other Female Surgical History: No Pertinent History Other Surgical History: Sinus Surgery, Left Heel Surgery-hematoma - Social History Smoking Status: Never smoker Exposure to second hand smoke: No Drug Use: none Patient Lives Alone: No Significant Family History: no pertinent family hx - Nursing Vital Signs Nursing Vital Signs: Initial Vital Signs Temperature 97.2 F 08/16/21 20:34 Pulse Rate 81 08/16/21 20:34 Respiratory Rate 26 H 08/16/21 20:34 Blood Pressure 170/79 08/16/21 20:34 O2 Sat by Pulse Oximetry 92 L 08/16/21 20:34 Pain Scale Pain Intensity 0 - Physical Exam General Appearance: no apparent distress, alert, obese, other (Shortness of breath with exertion) Eye Exam: PERRL/EOMI, eyes nml inspection Ears, Nose, Throat Exam: hearing grossly normal, normal ENT inspection, normal pharynx Neck Exam: normal inspection, supple, full range of motion Respiratory Exam: wheezing, No stridor (RN documents stridor however patient is not stridulous.) Cardiovascular/Chest Exam: normal heart sounds, regular rate/rhythm Abdominal/Gastrointestinal Exam: soft, normal bowel sounds, No tenderness, No distention, No mass, No guarding Extremity Exam: non-tender, normal range of motion, normal inspection, no calf tenderness, no pedal edema, swelling (2+ pitting edema bilateral lower extremity), No nani's sign Neurologic Exam: alert, oriented x 3, cooperative, mattress inspector II-XII nml as tested, sensation nml, No motor deficits Skin Exam: normal color, warm, No dry Lymphatic Exam: No adenopathy SpO2 Interpretation: normal SpO2: 98 O2 Delivery: Room Air - Course Nursing assessment & vital signs reviewed: Yes EKG Interpreted by Me: RATE (81), Sinus Rhythm, NORMAL AXIS, NORMAL INTERVALS - Radiology Exams Chest X-ray Interpretation: Interpreted by me (Clear lung prather normal cardiac silhouette. Intact bony thorax) Ordered Tests: Active Orders 24 hr Category Date Time Status Stoner Out STAT Care 08/16/21 20:56 Active EKG-ER Only STAT Care 08/16/21 20:55 Active IV Insertion STAT Care 08/16/21 20:55 Active Pulse Oximetry (ED) STAT Care 08/16/21 20:55 Active CHEST 1 VIEW (PORTABLE) Stat Exams 08/16/21 20:56 Taken BLOOD CULTURE Stat Lab 08/16/21 00:30 Received CBC W DIFF Stat Lab 08/16/21 21:00 Completed CMP Stat Lab 08/16/21 21:00 Completed NT PRO BNP Stat Lab 08/16/21 21:00 Completed TROPONIN Q3H Lab 08/16/21 21:00 Completed TROPONIN Q3H Lab 08/17/21 00:30 Received TROPONIN Q3H Lab 08/17/21 03:00 Ordered TROPONIN Q3H Lab 08/17/21 06:00 Ordered TROPONIN Q3H Lab 08/17/21 09:00 Ordered Respiratory Therapy Assessment DAILY RT 08/16/21 23:55 Active Medication Summary Generic Name Dose Route Start Last Admin Trade Name Freq PRN Reason Stop Dose Admin Doxycycline Hyclate 100 mg/ 100 mls @ 100 mls/hr 08/17/21 10:00 08/17/21 00:08 Dextrose IV 09/16/21 09:59 100 mls/hr Q12HT ALISHA Administration Discontinued Medications Generic Name Dose Route Start Last Admin Trade Name Freq PRN Reason Stop Dose Admin Albuterol/Ipratropium 3 ml 08/16/21 23:39 08/16/21 23:55 Ipratropium/Albuterol Sulfate 3 Ml Ampul.Neb IH 08/16/21 23:40 3 ml STAT ONE Administration Albuterol/Ipratropium Confirm 08/16/21 23:47 Ipratropium/Albuterol Sulfate 3 Ml Ampul.Neb Administered 08/16/21 23:48 Dose 3 ml IH .STK-MED ONE Methylprednisolone Sodium 0 mg 08/16/21 23:39 08/17/21 00:09 Succinate 125 mg/ Sterile IV 08/16/21 23:40 125 mg Water 2 ml STAT ONE Administration Doxycycline Hyclate Confirm 08/16/21 23:58 Doxycycline Hyclate 100 Mg/Vial Injection Administered 08/16/21 23:59 Dose 100 mg IV .STK-MED ONE Dextrose Confirm 08/16/21 23:59 D5w 100ml Mini Bag 100 Ml Administered 08/17/21 00:00 Dose 100 mls @ ud IV .STK-MED ONE Methylprednisolone Sodium Succinate Confirm 08/16/21 23:58 Methylprednis Sod Succ 125 Mg/2 Ml Vial Administered 08/16/21 23:59 Dose 125 mg .ROUTE .STK-MED ONE Sterile Water Confirm 08/16/21 23:57 Water For Injection,Sterile 10 Ml Vial Administered 08/16/21 23:58 Dose 10 ml IJ .STK-MED ONE Lab/Rad Data: Laboratory Result Diagrams 08/16/21 21:00 08/16/21 21:00 Laboratory Results 08/16/21 08/16/21 08/16/21 Range/Units 21:00 21:00 21:00 WBC 6.5 (4.0-10.5) x10^3/uL RBC 3.50 L (4.1-5.4) x10^6/uL Hgb 11.5 L (12.0-16.0) g/dL Hct 36.7 (35-47) % MCV 104.9 H (78-100) fL MCH 32.9 H (26-32) pg MCHC 31.3 L (32-36) g/dL RDW 14.8 H (11.5-14.0) % Plt Count 270 (150-450) x10^3/uL MPV 9.6 (7.5-11.0) fL Gran % 66.7 H (36.0-66.0) % Immature Gran % (Auto) 0.2 (0.00-0.4) % Nucleat RBC Rel Count 0.0 (0.00-0.1) % Eos # (Auto) 0.13 (0-0.5) x10^3/uL Immature Gran # (Auto) 0.01 (0.00-0.03) x10^3u/L Absolute Lymphs (auto) 1.30 (1.0-4.6) x10^3/uL Absolute Monos (auto) 0.69 (0.0-1.3) x10^3/uL Absolute Nucleated RBC 0.00 (0.00-0.01) x10^3u/L Lymphocytes % 19.9 L (24.0-44.0) % Monocytes % 10.6 (0.0-12.0) % Eosinophils % 2.0 (0.00-5.0) % Basophils % 0.6 (0.0-0.4) % Absolute Granulocytes 4.37 (1.4-6.9) x10^3/uL Basophils # 0.04 (0-0.4) x10^3/uL Sodium 140 (137-145) mmol/L Potassium 4.1 (3.5-5.1) mmol/L Chloride 110 H (98-107) mmol/L Carbon Dioxide 23 (22-30) mmol/L Anion Gap 11.0 (5-15) MEQ/L BUN 22 H (7-17) mg/dL Creatinine 1.63 H (0.52-1.04) mg/dL Estimated GFR 32.2 ML/MIN Glucose 125 H (74-106) mg/dL Calcium 8.7 (8.4-10.2) mg/dL Total Bilirubin 1.00 (0.2-1.3) mg/dL AST 55 H (14-36) U/L ALT 36 H (0-35) U/L Alkaline Phosphatase 109 (38-126) U/L Troponin I 0.013 (0.000-0.034) ng/mL NT-Pro-B Natriuret Pep 1030 (0-1800) pg/mL Serum Total Protein 6.0 L (6.3-8.2) g/dL Albumin 2.8 L (3.5-5.0) g/dL - Progress Progress: improved Air Movement: good Progress Note: Case discussed with Dr. Shin covering Dr. Cortes. Due to patient's complex multiple medical problems and the availability of patient's certified personal trainer and bakery chef at [facility] we will transfer patient for further evaluation and treatment. Plan of care discussed with patient. She agrees to transfer to [facility] for further evaluation and treatment. Case discussed with Dr. Halle gutierrez ER physician at [facility] who accepts transfer. Portions of this note were created with voice recognition technology. There may be grammatical, spelling, punctuation or sound alike errors 08/16/21 23:56 Blood Culture(s) Obtained: Yes Antibiotics given: Yes Discussed with Dr.: Sanchez (Case discussed with Dr. Shin covering Dr. Cortes. Dr. Shin advises transfer due to complexity of history. Patient has a certified personal trainer and bakery chef at [facility].) Will see patient in: other (Transfer) Counseled pt/family regarding: lab results, diagnosis, rad results - Departure Departure Disposition: Transfer Clinical Impression: Hypoxia, Wheezing, Megaloblastic anemia, Chronic renal insufficiency, Shortness of breath Condition: Stable Critical Care Time: No Referrals: [facility] [LOCATION] - Follow up/PCP as directed
[2021-08-16] MEDS ORDERED: solu-MEDROL 125 MG, Sterile H2O 10 ml 2 ML IV ONE ×2 (23:39)
[2021-08-16] MEDS ORDERED: DUONEB 0.5-3 MG/3 ml Neb IH ONE ×2 (23:39→23:47)
[2021-08-16 23:48] VITALS: O2SAT 98
[2021-08-16] MEDS ORDERED: Sterile H2O 10 ml IJ ONE (23:57)
[2021-08-16] MEDS ORDERED: VIBRAMYCIN 100 MG IV ONE (23:58)
[2021-08-16] MEDS ORDERED: solu-MEDROL ONE (23:58)
[2021-08-16] MEDS ORDERED: D5w 100ML Mini Bag 100 ML 100 ML IV ONE (23:59)
[2021-08-17 00:10] VITALS: BP 135/64; PULSE 76
--- NOTE | 2021-08-17 08:40 | XRAY ---
Indication: Short of breath. Comparison: July 24, 2021. Portable chest remains slightly underinflated. New borderline cardiomegaly, central vascular prominence, pulmonary edema, and small bibasilar effusions favoring cardiac decompensation/CHF. Superimposed pneumonia not completely excluded. Comment: Patient was transported to another institution.
[2021-08-17] MEDS ORDERED: VIBRAMYCIN 100 MG*** 100 MG in Dextrose 5%/Water IV Soln. 100ML PLUS BAG 100 ML IV SCH (10:00)
== END 2021-08-17 00:45 | disposition short-term general hospital (02) ==
LOC: ED 20:33
DX: D53.1 Other megaloblastic anemias, not elsewhere classified (principal); I13.0 Hypertensive heart and chronic kidney disease with heart failure and stage 1 through stage 4 chronic kidney disease, or unspecified chronic kidney disease; N18.30 Chronic kidney disease, stage 3 unspecified; I50.9 Heart failure, unspecified; R09.02 Hypoxemia; R06.2 Wheezing; R06.02 Shortness of breath; E78.5 Hyperlipidemia, unspecified; Z79.01 Long term (current) use of anticoagulants; Z79.899 Other long term (current) drug therapy
CPT/HCPCS: 36000; 36415; 71045; 80053; 83880; 84484; 85025; 87040; 93005; 93041; 94640; 94760; 96374; 99285; J2930; A9270-GY

== ENCOUNTER 2021-10-14 17:10 | Emergency (ER) | payer MEDICARE ==
[2021-10-14 17:48] LABS: Absolute Neutrophil Ct (ANC) 3.52 x10^3/uL (1.4-6.9); Basophil (Absolute #) 0.07 x10^3/uL (0-0.4); Eosinophil % 1.8 % (0.00-5.0); Eosinophil (Absolute #) 0.11 x10^3/uL (0-0.5); Hematocrit 37.2 % (35-47); Hemoglobin 12.2 g/dL (12.0-16.0); Lymphocyte (Absolute #) 1.67 x10^3/uL (1.0-4.6); Lymphocytes % 28.1 % (24.0-44.0); Mean Cell Volume 95.1 fL (78-100); Mean Corpuscular Hemoglobin 31.2 pg (26-32); Mean Corpuscular Hgb Concent. 32.8 g/dL (32-36); Mean Platelet Volume 9.7 fL (7.5-11.0); Monocyte (Absolute #) 0.56 x10^3/uL (0.0-1.3); Monocytes % 9.4 % (0.0-12.0); Neutrophil % 59.2 % (36.0-66.0); Platelet Count 218 x10^3/uL (150-450); Red Blood Count 3.91 x10^6/uL (4.1-5.4); Red Cell Distribution Width 14.2 % (11.5-14.0)
--- NOTE | 2021-10-14 18:00 | ERPHSYRPT ---
- History of Present Illness Time Seen by Provider: 10/14/21 17:12 Source: patient Exam Limitations: no limitations Patient Subjective Stated Complaint: pt here for syncopal episode while getting into car after dialysis today, pt was awake and alert when ambulance arrived Triage Nursing Assessment: pt alert, resp easy, face mask in place, skin w/d/p, has dialysis cath in place to right chest, , edema tolower legs that is mornal for her, she just states she doesnt feel well Physician History: 81-year-old female with history of coronary artery disease status post stenting, ESRD on dialysis, hypertension, hyperlipidemia, on Eliquis presented in the ER with chief complaint of syncopal episode after she was done with her 3 hours dialysis today and was getting ready to get into the car and passed out for 1 to 2 minutes without any seizure-like activity. Did not hit her head, no postictal on waking up. Denies any focal numbness tingling or weakness. Reports feeling weak fatigued tired and dehydrated with lack of energy. Denies any chest pain but has some shortness of breath which is improving. Denies any fever or chills. Patient has recently been started on dialysis almost week and a half ago. Denies any nausea vomiting or abdominal pain. Allergies/Adverse Reactions: codeine Allergy (Unknown, Verified 10/14/21 17:29) erythromycin base Allergy (Unknown, Verified 10/14/21 17:29) latex Allergy (Unknown, Verified 10/14/21 17:29) Sulfa (Sulfonamide Antibiotics) Allergy (Unknown, Verified 10/14/21 17:29) Home Medications: Potassium Chloride [Klor-Con 10] 10 meq PO DAILY 12/07/15 [History] Allopurinol 100 mg [Zyloprim 100 mg] 100 mg PO DAILY 12/03/17 [History] Apixaban [Eliquis 2.5 mg Tablet] 2.5 mg PO BID 08/10/20 [History] Famotidine 20 mg PO BID 08/10/20 [History] Fluoxetine HCl 20 mg [Prozac 20 MG] 20 mg PO HS 08/10/20 [History] Acetaminophen 325 mg [Tylenol 325 mg] 650 mg PO Q4H PRN PRN 08/16/21 [History] Ergocalciferol (Vitamin D2) [Vitamin D2] 50,000 unit PO Q7D 08/16/21 [History] Fluticasone Propionate [Flonase NASAL] 1 spray NS BID 08/16/21 [History] Furosemide 20 mg [Lasix 20 mg] 20 mg PO DAILY 08/16/21 [History] Levothyroxine Sodium 50 Mcg [Synthroid 50 Mcg] 50 mcg PO DAILY 08/16/21 [History] Potassium Chloride [Klor-Con M20] 20 meq PO DAILY 08/16/21 [History] Hx Tetanus, Diphtheria Vaccination/Date Given: No Hx Influenza Vaccination/Date Given: Yes Hx Pneumococcal Vaccination/Date Given: Yes Immunizations Up to Date: Yes Travel Risk - International Travel Have you traveled outside of the country in past 3 weeks: No - Coronavirus Screening Are you exhibiting any of the following symptoms?: No Close contact with a COVID-19 positive Pt in past 14-21 Days: No - Vaccine Status Have you recieved a Covid-19 vaccination: Yes 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 Puncher: Moderna - Vaccination Dates Date of 2cond Vaccination (if applicable): unknown - Review of Systems Constitutional: Fatigue, Weakness Eyes: No Symptoms Ears, Nose, & Throat: No Symptoms Respiratory: Dyspnea Cardiac: No Symptoms Abdominal/Gastrointestinal: No Symptoms Genitourinary Symptoms: No Symptoms Musculoskeletal: No Symptoms Skin: No Symptoms Neurological: No Symptoms Psychological: Anxiety Endocrine: No Symptoms Hematologic/Lymphatic: No Symptoms Immunological/Allergic: No Symptoms - Past Medical History Pertinent Past Medical History: Yes Neurological History: No Pertinent History ENT History: Cataracts Cardiac History: Arrhythmia, Congestive Heart Failure, Coronary Artery Disease, High Cholesterol, Hypertension, Myocardial Infarction ([place]) Respiratory History: Sleep Apnea Endocrine Medical History: Other Musculoskeletal History: Osteoarthritis GI Medical History: Gallbladder Disease History: Renal Disease Psycho-Social History: No Pertinent History Female Reproductive Disorders: No Pertinent History Other Medical History: 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, perforated bowel - Past Surgical History Past Surgical History: Yes Neuro Surgical History: No Pertinent History Cardiac: Cardiac Catheterization, Cardiac Stent Respiratory: No Pertinent History Gastrointestinal: Cholecystectomy, Colon Resection, Other Genitourinary: No Pertinent History Musculoskeletal: Other Female Surgical History: No Pertinent History Other Surgical History: Sinus Surgery, Left Heel Surgery-hematoma - Social History Smoking Status: Never smoker Exposure to second hand smoke: No Drug Use: none Patient Lives Alone: Yes Significant Family History: no pertinent family hx - Nursing Vital Signs Nursing Vital Signs: Initial Vital Signs Temperature 97.0 F 10/14/21 17:11 Pulse Rate 68 10/14/21 17:11 Respiratory Rate 18 10/14/21 17:11 Blood Pressure 133/76 10/14/21 17:11 O2 Sat by Pulse Oximetry 99 10/14/21 17:11 Pain Scale Pain Intensity 2 - Physical Exam General Appearance: no apparent distress, alert, anxiety Eye Exam: PERRL/EOMI, eyes nml inspection Ears, Nose, Throat Exam: normal ENT inspection, TMs normal, pharynx normal, moist mucous membranes Neck Exam: normal inspection, non-tender, full range of motion Respiratory Exam: normal breath sounds, rhonchi, other (Tunnel catheter well in place on the right) Cardiovascular Exam: regular rate/rhythm, normal heart sounds Gastrointestinal/Abdomen Exam: soft, normal bowel sounds, other (Ostomy bag well applied), No tenderness Back Exam: normal inspection, normal range of motion Extremity Exam: normal inspection, normal range of motion, pelvis stable Neurologic Exam: alert, oriented x 3, cooperative, 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, sensation nml, No normal mood/affect, No motor deficits Skin Exam: normal color SpO2 Interpretation: normal SpO2: 99 O2 Delivery: Room Air - Course EKG Interpreted by Me: RATE (66), Sinus Rhythm, NORMAL AXIS, prolonged QT interval, Non-specific ST Changes Ordered Tests: Active Orders 24 hr Category Date Time Status EKG-ER Only STAT Care 10/14/21 17:26 Active IV Insertion STAT Care 10/14/21 17:26 Active Orthostatic Vital Signs STAT Care 10/14/21 17:27 Active CHEST 1 VIEW (PORTABLE) Stat Exams 10/14/21 17:26 Completed HEAD WITHOUT CONTRAST [CT] Stat Exams 10/14/21 17:27 Completed BLOOD CULTURE Stat Lab 10/14/21 18:31 Received CBC W DIFF Stat Lab 10/14/21 17:45 Completed CMP Stat Lab 10/14/21 17:45 Completed Lactic Acid Routine Lab 10/14/21 23:57 Completed Lactic Acid Stat Lab 10/14/21 20:13 Completed MAG [MAGNESIUM] Stat Lab 10/14/21 17:45 Completed PROCALCITONIN Stat Lab 10/14/21 17:45 Completed TROPONIN Q4H Lab 10/14/21 17:45 Completed TROPONIN Q4H Lab 10/14/21 21:40 Completed TROPONIN Q4H Lab 10/15/21 01:30 Ordered Medication Summary Discontinued Medications Generic Name Dose Route Start Last Admin Trade Name Nikhil PRN Reason Stop Dose Admin Doxycycline Hyclate 100 mg 10/14/21 21:14 10/14/21 21:49 Doxycycline Hyclate 100 Mg Tablet PO 10/14/21 21:15 100 mg STAT ONE Administration Doxycycline Hyclate Confirm 10/14/21 21:48 Doxycycline Hyclate 100 Mg Tablet Administered 10/14/21 21:49 Dose 100 mg .ROUTE .STK-MED ONE Ceftriaxone Sodium/Dextrose 1 g in 50 mls @ 100 mls/hr 10/14/21 21:13 10/14/21 22:19 Rocephin 1 Gm-D5w 50 Ml Bag IV 10/14/21 21:42 Infused STAT STA Infusion Ceftriaxone Sodium/Dextrose Confirm 10/14/21 21:48 Rocephin 1 Gm-D5w 50 Ml Bag Administered 10/14/21 21:49 Dose 1 g in 50 mls @ ud IV .STK-MED ONE Ondansetron HCl 4 mg 10/14/21 23:54 10/14/21 23:56 Ondansetron Hcl 4 Mg/2 Ml Vial IV 10/14/21 23:55 4 mg STAT ONE Administration Ondansetron HCl Confirm 10/14/21 23:55 Ondansetron Hcl 4 Mg/2 Ml Vial Administered 10/14/21 23:56 Dose 4 mg .ROUTE .STK-MED ONE Lab/Rad Data: Laboratory Result Diagrams 10/14/21 17:45 10/14/21 17:45 Laboratory Results 10/14/21 10/14/21 10/14/21 Range/Units 23:57 21:40 20:13 WBC (4.0-10.5) x10^3/uL RBC (4.1-5.4) x10^6/uL Hgb (12.0-16.0) g/dL Hct (35-47) % MCV (78-100) fL MCH (26-32) pg MCHC (32-36) g/dL RDW (11.5-14.0) % Plt Count (150-450) x10^3/uL MPV (7.5-11.0) fL Gran % (36.0-66.0) % Immature Gran % (Auto) (0.00-0.4) % Nucleat RBC Rel Count (0.00-0.1) % Eos # (Auto) (0-0.5) x10^3/uL Immature Gran # (Auto) (0.00-0.03) x10^3u/L Absolute Lymphs (auto) (1.0-4.6) x10^3/uL Absolute Monos (auto) (0.0-1.3) x10^3/uL Absolute Nucleated RBC (0.00-0.01) x10^3u/L Lymphocytes % (24.0-44.0) % Monocytes % (0.0-12.0) % Eosinophils % (0.00-5.0) % Basophils % (0.0-0.4) % Absolute Granulocytes (1.4-6.9) x10^3/uL Basophils # (0-0.4) x10^3/uL Sodium (137-145) mmol/L Potassium (3.5-5.1) mmol/L Chloride (98-107) mmol/L Carbon Dioxide (22-30) mmol/L Anion Gap (5-15) MEQ/L BUN (7-17) mg/dL Creatinine (0.52-1.04) mg/dL Estimated GFR ML/MIN Glucose (74-106) mg/dL Lactic Acid 1.8 2.7 H (0.4-2.0) Calcium (8.4-10.2) mg/dL Magnesium (1.6-2.3) mg/dL Total Bilirubin (0.2-1.3) mg/dL AST (14-36) U/L ALT (0-35) U/L Alkaline Phosphatase (38-126) U/L Troponin I < 0.012 (0.000-0.034) ng/mL Serum Total Protein (6.3-8.2) g/dL Albumin (3.5-5.0) g/dL Procalcitonin (0.030-0.080) ng/mL 10/14/21 10/14/21 10/14/21 Range/Units 17:45 17:45 17:45 WBC (4.0-10.5) x10^3/uL RBC (4.1-5.4) x10^6/uL Hgb (12.0-16.0) g/dL Hct (35-47) % MCV (78-100) fL MCH (26-32) pg MCHC (32-36) g/dL RDW (11.5-14.0) % Plt Count (150-450) x10^3/uL MPV (7.5-11.0) fL Gran % (36.0-66.0) % Immature Gran % (Auto) (0.00-0.4) % Nucleat RBC Rel Count (0.00-0.1) % Eos # (Auto) (0-0.5) x10^3/uL Immature Gran # (Auto) (0.00-0.03) x10^3u/L Absolute Lymphs (auto) (1.0-4.6) x10^3/uL Absolute Monos (auto) (0.0-1.3) x10^3/uL Absolute Nucleated RBC (0.00-0.01) x10^3u/L Lymphocytes % (24.0-44.0) % Monocytes % (0.0-12.0) % Eosinophils % (0.00-5.0) % Basophils % (0.0-0.4) % Absolute Granulocytes (1.4-6.9) x10^3/uL Basophils # (0-0.4) x10^3/uL Sodium (137-145) mmol/L Potassium (3.5-5.1) mmol/L Chloride (98-107) mmol/L Carbon Dioxide (22-30) mmol/L Anion Gap (5-15) MEQ/L BUN (7-17) mg/dL Creatinine (0.52-1.04) mg/dL Estimated GFR ML/MIN Glucose (74-106) mg/dL Lactic Acid (0.4-2.0) Calcium (8.4-10.2) mg/dL Magnesium 1.7 (1.6-2.3) mg/dL Total Bilirubin (0.2-1.3) mg/dL AST (14-36) U/L ALT (0-35) U/L Alkaline Phosphatase (38-126) U/L Troponin I < 0.012 (0.000-0.034) ng/mL Serum Total Protein (6.3-8.2) g/dL Albumin (3.5-5.0) g/dL Procalcitonin 0.325 H (0.030-0.080) ng/mL 10/14/21 10/14/21 Range/Units 17:45 17:45 WBC 6.0 (4.0-10.5) x10^3/uL RBC 3.91 L (4.1-5.4) x10^6/uL Hgb 12.2 (12.0-16.0) g/dL Hct 37.2 (35-47) % MCV 95.1 (78-100) fL MCH 31.2 (26-32) pg MCHC 32.8 (32-36) g/dL RDW 14.2 H (11.5-14.0) % Plt Count 218 (150-450) x10^3/uL MPV 9.7 (7.5-11.0) fL Gran % 59.2 (36.0-66.0) % Immature Gran % (Auto) 0.3 (0.00-0.4) % Nucleat RBC Rel Count 0.0 (0.00-0.1) % Eos # (Auto) 0.11 (0-0.5) x10^3/uL Immature Gran # (Auto) 0.02 (0.00-0.03) x10^3u/L Absolute Lymphs (auto) 1.67 (1.0-4.6) x10^3/uL Absolute Monos (auto) 0.56 (0.0-1.3) x10^3/uL Absolute Nucleated RBC 0.00 (0.00-0.01) x10^3u/L Lymphocytes % 28.1 (24.0-44.0) % Monocytes % 9.4 (0.0-12.0) % Eosinophils % 1.8 (0.00-5.0) % Basophils % 1.2 (0.0-0.4) % Absolute Granulocytes 3.52 (1.4-6.9) x10^3/uL Basophils # 0.07 (0-0.4) x10^3/uL Sodium 135 L (137-145) mmol/L Potassium 4.1 (3.5-5.1) mmol/L Chloride 98 (98-107) mmol/L Carbon Dioxide 27 (22-30) mmol/L Anion Gap 14.3 (5-15) MEQ/L BUN 10 (7-17) mg/dL Creatinine 1.20 H (0.52-1.04) mg/dL Estimated GFR 45.8 ML/MIN Glucose 104 (74-106) mg/dL Lactic Acid (0.4-2.0) Calcium 9.1 (8.4-10.2) mg/dL Magnesium (1.6-2.3) mg/dL Total Bilirubin 1.10 (0.2-1.3) mg/dL AST 85 H (14-36) U/L ALT 43 H (0-35) U/L Alkaline Phosphatase 123 (38-126) U/L Troponin I (0.000-0.034) ng/mL Serum Total Protein 7.0 (6.3-8.2) g/dL Albumin 3.3 L (3.5-5.0) g/dL Procalcitonin (0.030-0.080) ng/mL - Progress Progress: improved Progress Note: 10/14/21 21:51 81-year-old is evaluated in the ER for syncope and collapse. Patient is weak all over and presentation. Has stable vitals. Work-up showed normal white count, chemistries grossly unremarkable for any acute findings except for a lactate of 2.6 and procalcitonin of 0.3. Given a dose of antibiotics. Chest x- ray no acute cardiopulmonary findings. CT head is negative. Discussed with Dr. Medel, recommended transfer to facility with nephrology services. 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 Discussed with [facility] attending, reviewed history, work-up and patient is accepted for transfer. Discussed with .: Lucrecia, Other (Dr. Renee [facility]) Counseled pt/family regarding: lab results, diagnosis, rad results - Departure Departure Disposition: Transfer Clinical Impression: Syncope and collapse, Sepsis, ESRD (end stage renal disease) on dialysis Condition: Stable Critical Care Time: No Referrals: GENOVEVA CASTELLANOS [Primary Care Provider] - Follow up/PCP as directed
[2021-10-14 18:05] LABS: ALBUMIN 3.3 g/dL (3.5-5.0); ANION GAP 14.3 MEQ/L (5-15); BILIRUBIN,TOTAL 1.1 mg/dL (0.2-1.3); Calcium 9.1 mg/dL (8.4-10.2); Creatinine 1 1.2 mg/dL (0.52-1.04); EST GLOMERULAR FILTRATION RATE 45.8 ML/MIN; Potassium 4.1 mmol/L (3.5-5.1)
--- NOTE | 2021-10-14 19:42 | XRAY ---
Indication: Weakness and syncope following dialysis. Comparison: August 16, 2021 Portable chest inflated and now clear. Heart not enlarged with new double-lumen large-bore right dialysis catheter and 2.7 cm round disc overlying heart. Bony thorax intact again with mild osteopenia and degenerative changes. No acute findings. Comment: Preliminary interpretation made by C. No critical discrepancy.
--- NOTE | 2021-10-14 19:44 | XRAY ---
Indication: Weakness and syncope. Multiple contiguous axial images obtained through the head without contrast. Comparison: July 24, 2021 Again age-appropriate global atrophy and mild periventricular degenerative micro-ischemia bilaterally. No acute intracranial hemorrhage, abnormal extra-axial fluid collection, or mass effect. Fourth ventricle is midline. Bony calvarium intact. Paranasal sinuses and mastoid air cells are clear. Impression: Continued nonacute senile brain. Comment: Preliminary interpretation made by [facility]. No critical discrepancy.
[2021-10-14] MEDS ORDERED: ROCEPHIN 1 Gm-D5w 50 ml Bag** 1 G/50 ML IVPB IV STA (21:13)
[2021-10-14] MEDS ORDERED: Vibramycin 100 MG PO ONE (21:14)
[2021-10-14] MEDS ORDERED: Vibramycin 100 MG ONE (21:48)
[2021-10-14] MEDS ORDERED: ROCEPHIN 1 Gm-D5w 50 ml Bag** 1 G/50 ML IVPB IV ONE (21:48)
[2021-10-14] MEDS ORDERED: Zofran 4 MG/2 ML VIAL IV ONE (23:54)
[2021-10-14] MEDS ORDERED: Zofran 4 MG/2 ML VIAL ONE (23:55)
[2021-10-15 00:33] VITALS: BP 127/59; PULSE 95; O2SAT 98
== END 2021-10-15 00:15 | disposition short-term general hospital (02) ==
LOC: ED 17:10
DX: A41.9 Sepsis, unspecified organism (principal); R55 Syncope and collapse; N18.6 End stage renal disease; Z99.2 Dependence on renal dialysis; E78.5 Hyperlipidemia, unspecified; R53.1 Weakness; R53.83 Other fatigue; I11.0 Hypertensive heart disease with heart failure; I50.9 Heart failure, unspecified; Z79.01 Long term (current) use of anticoagulants; Z79.899 Other long term (current) drug therapy
CPT/HCPCS: 36000; 36415; 70450; 71045; 80053; 83605; 83735; 84145; 84484; 85025; 87040; 93005; 96374; 99284; J0696; J2405; A9270-GY

== ENCOUNTER 2022-01-02 13:37 | Observation (INO) | payer MEDICARE ==
--- NOTE | 2022-01-02 13:40 | ERPHSYRPT ---
- History of Present Illness Time Seen by Provider: 01/02/22 13:50 Source: patient Exam Limitations: no limitations Physician History: Patient is an 81-year-old female presents to emergency department via EMS for evaluation of altered mental status. Patient was undergoing her routine hemodialysis when staff reports she became altered. Upon arrival patient was answering questions appropriately. However she felt weak. Patient has a colostomy. No trauma. No fever. Patient denies pain. Symptoms are mild in intensity. No specific worsening improving factors. Patient voices no other complaints or concerns at this time. Portions of this note were created with voice recognition technology. There may be grammatical, spelling, punctuation or sound alike errors Timing/Duration: today Severity: moderate Modifying Factors: Improves With: nothing Associated Symptoms: nausea, No chest pain Allergies/Adverse Reactions: codeine Allergy (Unknown, Verified 10/14/21 17:29) erythromycin base Allergy (Unknown, Verified 10/14/21 17:29) latex Allergy (Unknown, Verified 10/14/21 17:29) Sulfa (Sulfonamide Antibiotics) Allergy (Unknown, Verified 10/14/21 17:29) Home Medications: Potassium Chloride [Klor-Con 10] 10 meq PO DAILY 12/07/15 [History] Allopurinol 100 mg [Zyloprim 100 mg] 100 mg PO DAILY 12/03/17 [History] Apixaban [Eliquis 2.5 mg Tablet] 2.5 mg PO BID 08/10/20 [History] Famotidine 20 mg PO BID 08/10/20 [History] Fluoxetine HCl 20 mg [Prozac 20 MG] 20 mg PO HS 08/10/20 [History] Acetaminophen 325 mg [Tylenol 325 mg] 650 mg PO Q4H PRN PRN 08/16/21 [History] Ergocalciferol (Vitamin D2) [Vitamin D2] 50,000 unit PO Q7D 08/16/21 [History] Fluticasone Propionate [Flonase NASAL] 1 spray NS BID 08/16/21 [History] Furosemide 20 mg [Lasix 20 mg] 20 mg PO DAILY 08/16/21 [History] Levothyroxine Sodium 50 Mcg [Synthroid 50 Mcg] 50 mcg PO DAILY 08/16/21 [History] Potassium Chloride [Klor-Con M20] 20 meq PO DAILY 08/16/21 [History] Hx Tetanus, Diphtheria Vaccination/Date Given: No Hx Influenza Vaccination/Date Given: Yes Hx Pneumococcal Vaccination/Date Given: Yes Travel Risk - Vaccine Status Have you recieved a Covid-19 vaccination: Yes 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 - Vaccination Dates Date of 2cond Vaccination (if applicable): unknown - Review of Systems Constitutional: No Symptoms, No Fever, No Chills Eyes: No Symptoms Ears, Nose, & Throat: No Symptoms Respiratory: No Symptoms, No Cough, No Dyspnea Cardiac: No Symptoms, No Chest Pain, No Edema, No Syncope Abdominal/Gastrointestinal: No Symptoms, No Abdominal Pain, No Nausea, No Vomiting, No Diarrhea Genitourinary Symptoms: No Symptoms, No Dysuria Musculoskeletal: No Symptoms, No Back Pain, No Neck Pain Skin: No Symptoms, No Rash Neurological: No Symptoms, No Dizziness, No Focal Weakness, No Sensory Changes Psychological: No Symptoms Endocrine: No Symptoms Hematologic/Lymphatic: No Symptoms Immunological/Allergic: No Symptoms All Other Systems: Reviewed and Negative - Past Medical History Pertinent Past Medical History: Yes Neurological History: No Pertinent History ENT History: Cataracts Cardiac History: Arrhythmia, Congestive Heart Failure, Coronary Artery Disease, High Cholesterol, Hypertension, Myocardial Infarction ([place]) Respiratory History: Sleep Apnea Endocrine Medical History: Other Musculoskeletal History: Osteoarthritis GI Medical History: Gallbladder Disease History: Renal Disease Psycho-Social History: No Pertinent History Female Reproductive Disorders: No Pertinent History Other Medical History: 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, perforated bowel - Past Surgical History Past Surgical History: Yes Neuro Surgical History: No Pertinent History Cardiac: Cardiac Catheterization, Cardiac Stent Respiratory: No Pertinent History Gastrointestinal: Cholecystectomy, Colon Resection, Other Genitourinary: No Pertinent History Musculoskeletal: Other Female Surgical History: No Pertinent History Other Surgical History: Sinus Surgery, Left Heel Surgery-hematoma - Social History Smoking Status: Never smoker Exposure to second hand smoke: No Drug Use: none Patient Lives Alone: Yes Significant Family History: no pertinent family hx - Nursing Vital Signs Nursing Vital Signs: Initial Vital Signs Temperature 97.5 F 01/02/22 13:41 Pulse Rate 97 H 01/02/22 13:41 Respiratory Rate 20 01/02/22 13:41 Blood Pressure 174/89 01/02/22 13:41 O2 Sat by Pulse Oximetry 98 01/02/22 13:41 Pain Scale Pain Intensity 0 - Physical Exam General Appearance: no apparent distress, alert Eye Exam: PERRL/EOMI, eyes nml inspection Ears, Nose, Throat Exam: normal ENT inspection, TMs normal, pharynx normal, moist mucous membranes Neck Exam: normal inspection, non-tender, supple, full range of motion Respiratory Exam: normal breath sounds, lungs clear, airway intact, No respiratory distress Cardiovascular Exam: regular rate/rhythm, normal heart sounds, normal peripheral pulses Gastrointestinal/Abdomen Exam: soft, normal bowel sounds, No tenderness, No mass Back Exam: normal inspection, normal range of motion, No CVA tenderness, No vertebral tenderness Extremity Exam: normal inspection, normal range of motion, pelvis stable, pedal edema Neurologic Exam: alert, oriented x 3, cooperative, normal mood/affect, sensation nml, No motor deficits Skin Exam: normal color, warm, dry, No rash Lymphatic Exam: No adenopathy SpO2 Interpretation: normal SpO2: 98 O2 Delivery: Room Air - Course Nursing assessment & vital signs reviewed: Yes EKG Interpreted by Me: RATE (78), Sinus Rhythm, NORMAL AXIS, NORMAL INTERVALS - Radiology Exams Chest X-ray Interpretation: Teleradiologist Report (Portable chest demonstrates cardiomegaly and small bibasilar effusions favoring cardiac decompensation/CHF. CT proven right double lumen dialysis catheter tip in the right ventricle. Bony thorax intact with osteopenia and degenerative changes) - CT Exams Abdomen/Pelvis CT Interpretation: Tele-radiologist Report (No cardiomegaly with worsening pulmonary edema and increasing small bilateral effusions favoring cardiac decompensation. Large bore catheter right ventricle. New left mid abdomen diverting colostomy. 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 Care 01/02/22 13:41 Active EKG-ER Only STAT Care 01/02/22 13:40 Active [place] [Catheter-[place]] STAT Care 01/02/22 14:13 Active IV Insertion STAT Care 01/02/22 13:40 Active Pulse Oximetry (ED) STAT Care 01/02/22 13:40 Active ABDOMEN AND PELVIS W/0 CONTRAS [CT] Stat Exams 01/02/22 13:39 Completed CHEST 1 VIEW (PORTABLE) Stat Exams 01/02/22 13:41 Completed HEAD WITHOUT CONTRAST [CT] Stat Exams 01/02/22 13:39 Completed CBC W DIFF Stat Lab 01/02/22 14:20 Completed CMP Stat Lab 01/02/22 14:20 Completed CULTURE,URINE Stat Lab 01/02/22 14:13 Received ETHYL ALCOHOL Stat Lab 01/02/22 14:20 Completed NT PRO BNP Stat Lab 01/02/22 14:20 Completed TROPONIN Q4H Lab 01/02/22 14:20 Completed TROPONIN Q4H Lab 01/02/22 17:45 Ordered TROPONIN Q4H Lab 01/02/22 21:45 Ordered UA W/RFX CULTURE Stat Lab 01/02/22 14:13 Completed Transfer Order Routine Transfer 01/02/22 Ordered Medication Summary Discontinued Medications Generic Name Dose Route Start Last Admin Trade Name Freq PRN Reason Stop Dose Admin Furosemide 40 mg 01/02/22 15:17 01/02/22 15:23 Furosemide 40 Mg/4 Ml Vial IV 01/02/22 15:18 40 mg STAT ONE Administration Furosemide Confirm 01/02/22 15:22 Furosemide 40 Mg/4 Ml Vial Administered 01/02/22 15:23 Dose 40 mg .ROUTE .STK-MED ONE Lidocaine HCl Confirm 01/02/22 15:44 Lidocaine - Mpf 2% 5 Ml Vial Administered 01/02/22 15:45 Dose 5 ml .ROUTE .STK-MED ONE Lab/Rad Data: Laboratory Result Diagrams 01/02/22 14:20 01/02/22 14:20 Laboratory Results 01/02/22 01/02/22 01/02/22 Range/Units 15:09 14:20 14:20 WBC (4.0-10.5) x10^3/uL RBC (4.1-5.4) x10^6/uL Hgb (12.0-16.0) g/dL Hct (35-47) % MCV (78-100) fL MCH (26-32) pg MCHC (32-36) g/dL RDW (11.5-14.0) % Plt Count (150-450) x10^3/uL MPV (7.5-11.0) fL Gran % (36.0-66.0) % Immature Gran % (Auto) (0.00-0.4) % Nucleat RBC Rel Count (0.00-0.1) % Eos # (Auto) (0-0.5) x10^3/uL Immature Gran # (Auto) (0.00-0.03) x10^3u/L Absolute Lymphs (auto) (1.0-4.6) x10^3/uL Absolute Monos (auto) (0.0-1.3) x10^3/uL Absolute Nucleated RBC (0.00-0.01) x10^3u/L Lymphocytes % (24.0-44.0) % Monocytes % (0.0-12.0) % Eosinophils % (0.00-5.0) % Basophils % (0.0-0.4) % Absolute Granulocytes (1.4-6.9) x10^3/uL Basophils # (0-0.4) x10^3/uL Sodium 136 L (137-145) mmol/L Potassium 3.6 (3.5-5.1) mmol/L Chloride 101 (98-107) mmol/L Carbon Dioxide 26 (22-30) mmol/L Anion Gap 11.7 (5-15) MEQ/L BUN 24 H (7-17) mg/dL Creatinine 1.99 H (0.52-1.04) mg/dL Estimated GFR 25.6 ML/MIN Glucose 159 H (74-106) mg/dL Calcium 8.5 (8.4-10.2) mg/dL Total Bilirubin 0.80 (0.2-1.3) mg/dL AST 83 H (14-36) U/L ALT 43 H (0-35) U/L Alkaline Phosphatase 134 H (38-126) U/L Troponin I 0.013 (0.000-0.034) ng/mL NT-Pro-B Natriuret Pep 811 (0-1800) pg/mL Serum Total Protein 6.5 (6.3-8.2) g/dL Albumin 3.2 L (3.5-5.0) g/dL Urinalys Dipstick Clnc Urine Color (YELLOW) Urine Appearance (CLEAR) Urine pH (5-6) Ur Specific [place] (1.005-1.025) POC Urine Protein Conf (Negative) Urine Ketones (NEGATIVE) Urine Nitrite (NEGATIVE) Urine Bilirubin (NEGATIVE) Urine Urobilinogen (0-1) mg/dL Urine Leukocytes (NEGATIVE) Urine WBC (Auto) (0-5) /HPF Urine RBC (Auto) (0-2) /HPF U Hyaline Cast (Auto) (0-2) /LPF U Epithel Cells (Auto) (FEW) /HPF Urine Bacteria (Auto) (NEGATIVE) /HPF Urine RBC (0-5) Simone/ul Urine Mucus (Auto) (NEGATIVE) /HPF Ur Culture Indicated? Urine Glucose (NEGATIVE) mg/dL Ethyl Alcohol < 10 (0-10) mg/dL Influenza Type A Ag NEGATIVE (NEGATIVE) Influenza Type B Ag NEGATIVE (NEGATIVE) RSV (PCR) NEGATIVE (Negative) SARS-CoV-2 (PCR) NEGATIVE (NEGATIVE) 01/02/22 01/02/22 Range/Units 14:20 14:13 WBC 4.9 (4.0-10.5) x10^3/uL RBC 3.30 L (4.1-5.4) x10^6/uL Hgb 10.6 L (12.0-16.0) g/dL Hct 33.0 L (35-47) % MCV 100.0 (78-100) fL MCH 32.1 H (26-32) pg MCHC 32.1 (32-36) g/dL RDW 15.1 H (11.5-14.0) % Plt Count 151 (150-450) x10^3/uL MPV 10.1 (7.5-11.0) fL Gran % 84.4 H (36.0-66.0) % Immature Gran % (Auto) 0.4 (0.00-0.4) % Nucleat RBC Rel Count 0.0 (0.00-0.1) % Eos # (Auto) 0.01 (0-0.5) x10^3/uL Immature Gran # (Auto) 0.02 (0.00-0.03) x10^3u/L Absolute Lymphs (auto) 0.32 L (1.0-4.6) x10^3/uL Absolute Monos (auto) 0.37 (0.0-1.3) x10^3/uL Absolute Nucleated RBC 0.00 (0.00-0.01) x10^3u/L Lymphocytes % 6.5 L (24.0-44.0) % Monocytes % 7.5 (0.0-12.0) % Eosinophils % 0.2 (0.00-5.0) % Basophils % 1.0 (0.0-0.4) % Absolute Granulocytes 4.17 (1.4-6.9) x10^3/uL Basophils # 0.05 (0-0.4) x10^3/uL Sodium (137-145) mmol/L Potassium (3.5-5.1) mmol/L Chloride (98-107) mmol/L Carbon Dioxide (22-30) mmol/L Anion Gap (5-15) MEQ/L BUN (7-17) mg/dL Creatinine (0.52-1.04) mg/dL Estimated GFR ML/MIN Glucose (74-106) mg/dL Calcium (8.4-10.2) mg/dL Total Bilirubin (0.2-1.3) mg/dL AST (14-36) U/L ALT (0-35) U/L Alkaline Phosphatase (38-126) U/L Troponin I (0.000-0.034) ng/mL NT-Pro-B Natriuret Pep (0-1800) pg/mL Serum Total Protein (6.3-8.2) g/dL Albumin (3.5-5.0) g/dL Urinalys Dipstick Clnc MAIN LAB Urine Color DARK YELLOW (YELLOW) Urine Appearance CLEAR (CLEAR) Urine pH 5.5 (5-6) Ur Specific [place] >=1.030 (1.005-1.025) POC Urine Protein Conf TRACE (Negative) Urine Ketones NEGATIVE (NEGATIVE) Urine Nitrite NEGATIVE (NEGATIVE) Urine Bilirubin SMALL (NEGATIVE) Urine Urobilinogen 0.2 (0-1) mg/dL Urine Leukocytes NEGATIVE (NEGATIVE) Urine WBC (Auto) 3-5 (0-5) /HPF Urine RBC (Auto) 0-2 (0-2) /HPF U Hyaline Cast (Auto) 11-25 (0-2) /LPF U Epithel Cells (Auto) RARE (FEW) /HPF Urine Bacteria (Auto) NONE (NEGATIVE) /HPF Urine RBC TRACE-INTACT (0-5) Simone/ul Urine Mucus (Auto) SLIGHT (NEGATIVE) /HPF Ur Culture Indicated? YES Urine Glucose NEGATIVE (NEGATIVE) mg/dL Ethyl Alcohol (0-10) mg/dL Influenza Type A Ag (NEGATIVE) Influenza Type B Ag (NEGATIVE) RSV (PCR) (Negative) SARS-CoV-2 (PCR) (NEGATIVE) - Progress Progress: improved Progress Note: Patient reassessed. She feels well. Work-up reveals congestive heart failure. Lasix administered. Case discussed with who excepts admission to observation. Plan of care discussed with patient. She agrees to admission [facility] for further evaluation and treatment. Portions of this note were created with voice recognition technology. There may be grammatical, spelling, punctuation or sound alike errors 01/02/22 16:16 Patient's systems lead is Dr. Brady 01/02/22 16:[address] Catrachita Will see patient in: hospital (observation) Counseled pt/family regarding: lab results, diagnosis, rad results - Departure Departure Disposition: Observation Clinical Impression: Bibasilar effusions, Cardiomegaly, Congestive heart failure, Osteopenia, Pulmonary edema Condition: Stable Critical Care Time: No Referrals: GENOVEVA CASTELLANOS [Primary Care Provider] - Follow up/PCP as directed Instructions: Heart Failure
--- NOTE | 2022-01-02 14:08 | XRAY ---
Indication: Acute mental status change. Multiple contiguous axial images obtained through the head without contrast. Comparison: October 14, 2021 Again age-appropriate global atrophy and mild periventricular degenerative micro-ischemia bilaterally. No acute intracranial hemorrhage, abnormal extra-axial fluid collection, or mass effect. Fourth ventricle is midline without hydrocephalus. Bony calvarium intact. Paranasal sinuses and mastoid air cells remain clear. Impression: Continued nonacute senile brain.
--- NOTE | 2022-01-02 14:22 | XRAY ---
Indication: Nausea and vomiting fecal matter. Obstruction. Multiple contiguous axial images obtained through the abdomen and pelvis without contrast. Comparison: April 03, 2020 Lung bases demonstrates worsening small bilateral pleural effusions and pulmonary edema. Heart now enlarged with partially visualized large bore catheter tip in the right ventricle. Again small hiatal hernia. Stomach is minimally fluid distended. Noncontrasted stomach and bowel loops nonobstructed with new left periumbilical diverting colostomy. Loop of small bowel herniates through the colostomy ventral wall defect without obstruction/incarceration. Medial to this is also a new supraumbilical ventral hernia with a knuckle of small bowel herniating without obstruction/incarceration. Remnant sigmoid again demonstrates diverticulosis. Again previous cholecystectomy. No free fluid/air. Remaining liver, pancreas, spleen, adrenal glands, kidneys, ureters, bladder, and uterus are unremarkable for noncontrast exam. Again mild scattered aortoiliac calcifications without AAA. Osseous structures intact again with osteopenia, mild degenerative changes both hips, mild/moderate multilevel thoracolumbar degenerative spondylosis, minimal grade 1 L4 listhesis, and minimal double curvature scoliosis. Impression: 1. New cardiomegaly with worsening pulmonary edema and increasing small bilateral effusions favoring cardiac decompensation/CHF. 2. New partially visualized large bore catheter tip in right ventricle of uncertain clinical significance. 3. New left mid abdomen diverting colostomy. Small bowel loop herniates through colostomy ventral wall defect without complications. Also new smaller supraumbilical ventral hernia with knuckle of small bowel herniating also without competitions. 4. Again sigmoid diverticulosis, arteriosclerotic disease, and chronic bony findings.
[2022-01-02 14:31] LABS: Absolute Neutrophil Ct (ANC) 4.17 x10^3/uL (1.4-6.9); Basophil (Absolute #) 0.05 x10^3/uL (0-0.4); Eosinophil % 0.2 % (0.00-5.0); Eosinophil (Absolute #) 0.01 x10^3/uL (0-0.5); Hemoglobin 10.6 g/dL (12.0-16.0); Lymphocyte (Absolute #) 0.32 x10^3/uL (1.0-4.6); Lymphocytes % 6.5 % (24.0-44.0); Mean Corpuscular Hemoglobin 32.1 pg (26-32); Mean Corpuscular Hgb Concent. 32.1 g/dL (32-36); Mean Platelet Volume 10.1 fL (7.5-11.0); Monocyte (Absolute #) 0.37 x10^3/uL (0.0-1.3); Monocytes % 7.5 % (0.0-12.0); Neutrophil % 84.4 % (36.0-66.0); Platelet Count 151 x10^3/uL (150-450); Red Cell Distribution Width 15.1 % (11.5-14.0); White Blood Count 4.9 x10^3/uL (4.0-10.5)
--- NOTE | 2022-01-02 14:32 | XRAY ---
Indication: Acute mental status change. Nausea and vomiting. Comparison: October 14, 2021 Portable chest now demonstrates cardiomegaly and small bibasilar effusions favoring cardiac decompensation/CHF. CT proven right double-lumen dialysis catheter tip in right ventricle. Bony thorax intact again with osteopenia and degenerative changes.
[2022-01-02 14:36] LABS: Appearance CLEAR (CLEAR); Bilirubin SMALL (NEGATIVE); Glucose NEGATIVE (NEGATIVE); Ketones NEGATIVE (NEGATIVE); Specific Gravity >=1.030 (1.005-1.025)
[2022-01-02 14:37] LABS: Dipstick done @ ? MAIN LAB; Epithelial Cells RARE /HPF (FEW); Mucus SLIGHT /HPF (NEGATIVE); Nitrite NEGATIVE (NEGATIVE); Ph 5.5 (5-6); Protein,Urine Dip TRACE (Negative); RBC 0-2 /HPF (0-2); RBC TRACE-INTACT Ery/ul (0-5); Urobilinogen 0.2 mg/dL (0-1)
[2022-01-02 14:38] LABS: Urine Cultured Indicated? YES
[2022-01-02 15:02] LABS: ALBUMIN 3.2 g/dL (3.5-5.0); ALKALINE PHOSPHATASE 134 U/L (38-126); ANION GAP 11.7 MEQ/L (5-15); BLOOD UREA NITROGEN 24 mg/dL (7-17); CHLORIDE 101 mmol/L (98-107); Calcium 8.5 mg/dL (8.4-10.2); Carbon Dioxide 26 mmol/L (22-30); Creatinine 1 1.99 mg/dL (0.52-1.04); EST GLOMERULAR FILTRATION RATE 25.6 ML/MIN; ETHYL ALCOHOL < 10 mg/dL (0-10); Glucose 159 mg/dL (74-106); NT PRO BNP 811 pg/mL (0-1800); Potassium 3.6 mmol/L (3.5-5.1); SGOT/AST 83 U/L (14-36); SGPT/ALT 43 U/L (0-35); SODIUM 136 mmol/L (137-145); Total Protein 6.5 g/dL (6.3-8.2)
[2022-01-02] MEDS ORDERED: Lasix 40 MG/4 ML IV ONE (15:17)
[2022-01-02] MEDS ORDERED: Lasix 40 MG/4 ML ONE (15:22)
--- NOTE | 2022-01-02 15:41 | ANESPROCNO ---
Anesthesia Procedure Note - Anesthesia Procedure Note Procedure Date:: 01/02/22 Procedure Time:: 14:30 Anesthesia Procedure Note: Consulted to ER for IV access. Risks/benefits of midline IV placement discussed with patient. Agrees to proceed. RUE only for IV access d/t LUE AV fistula. Right UE scanned using ultrasound. Target vessel identified right brachial vein. RUE sterile prep and drape 2%CHG70%IPA. A sterile ultrasound probe cover was utilized as well. Skin and subcutaneous tissue over target vessel localized with 5cc 2% lidocaine. Using a [employer] Mini Access Kit, a 21 ga X 7cm echo enhanced needle was advanced to access target vessel X 1 attempt. A 0.46mm Nitinol wire was placed through the needle into vessel and needle withdrawn. Wire placement within RUE brachial vein was verified in both short and long ultrasound axis. A 4F X 10cm co-axial catheter was threaded over wire into vessel and wire withdrawn. A sterile J-loop IV extension applied. Positive brisk venous blood return and flushes easily. A biopatch and sterile occlusive dressing were appli ed. There were no complications and the patient tolerated the procedure well.
[2022-01-02] MEDS ORDERED: Xylocaine-Mpf 2% 5 Ml Vial ONE (15:44)
[2022-01-02 15:50] LABS: INFLUENZA A NEGATIVE (NEGATIVE); INFLUENZA B NEGATIVE (NEGATIVE); RESPIRATORY SYNCTIAL VIRUS NEGATIVE (Negative); SARS-CoV-2 Xpert Express NEGATIVE (NEGATIVE)
[2022-01-02] MEDS: ZOFRAN ODT 4 MG PO PRN (18:36)
[2022-01-02] MEDS ORDERED: Tessalon Perles 100 MG PO PRN (20:07)
--- NOTE | 2022-01-02 20:45 | PCM.HP ---
History of Present Illness - Chief Complaint Chief Complaint: shortness of breath and altered mental status for 4-6 hours History of Present Illness: is a 81 year old female.presents to emergency department via EMS for evaluation of altered mental status. Patient was undergoing her routine hemodialysis when staff reports she became altered. Upon arrival patient was answering questions appropriately. However she felt weak. Patient has a colostomy. No trauma. No fever. Patient denies pain. Symptoms are mild in intensity. No specific worsening improving factors. Patient voices no other complaints or concerns at this time. - Review of Systems Constitutional: No Fever, No Chills Eyes: No Symptoms Ears, Nose, & Throat: No Symptoms Respiratory: No Cough, No Short Of Breath Cardiac: No Chest Pain, No Edema, No Syncope Abdominal/Gastrointestinal: No Abdominal Pain, No Nausea, No Vomiting, No Diarrhea Genitourinary Symptoms: No Dysuria Musculoskeletal: No Back Pain, No Neck Pain Skin: No Rash Neurological: Lethargy, No Dizziness, No Focal Weakness, No Sensory Changes Psychological: No Symptoms Endocrine: No Symptoms Hematologic/Lymphatic: No Symptoms Immunological/Allergic: No Symptoms Medications & Allergies Home Medications: Home Medication List Allopurinol 100 mg [Zyloprim 100 mg] 100 mg PO DAILY 12/03/17 [History Confirmed 01/02/22] Apixaban [Eliquis 2.5 mg Tablet] 2.5 mg PO BID 08/10/20 [History Confirmed 01/02/22] Famotidine 40 mg PO QHS 08/10/20 [History Confirmed 01/02/22] Fluoxetine HCl 20 mg [Prozac 20 MG] 20 mg PO HS 08/10/20 [History Confirmed 01/02/22] Acetaminophen 325 mg [Tylenol 325 mg] 650 mg PO Q4H PRN PRN 08/16/21 [History Confirmed 01/02/22] Ergocalciferol (Vitamin D2) [Vitamin D2] 50,000 unit PO Q7D 08/16/21 [History Confirmed 01/02/22] Levothyroxine Sodium 50 Mcg [Synthroid 50 Mcg] 50 mcg PO DAILY 08/16/21 [History Confirmed 01/02/22] Albuterol Sulfate [Albuterol Sulfate Hfa] 2 puff IH Q6H 10/25/22 [History Confirmed 01/02/22] Amiodarone HCl 200 mg [Cordarone 200 MG] 200 mg PO DAILY 01/02/22 [History Confirmed 01/02/22] Benzonatate 200 mg PO BID 01/02/22 [History Confirmed 01/02/22] Loratadine 10 mg [Claritin 10 mg] 10 mg PO DAILY 01/02/22 [History Confirmed 01/02/22] Midodrine HCl [Proamatine] 5 mg PO TID 01/02/22 [History Confirmed 01/02/22] Omeprazole 40 mg PO DAILY 01/02/22 [History Confirmed 01/02/22] Ondansetron ODT 4 MG [Zofran Odt 4 mg] 4 mg PO Q4HPRN PRN 01/02/22 [History Confirmed 01/02/22] diphenhydrAMINE HCL [Benadryl] 50 mg PO DAILY PRN PRN 01/02/22 [History Confirmed 01/02/22] Allergies/Adverse Reactions: Allergies Allergy/AdvReac Type Severity Reaction Status Date / Time codeine Allergy Unknown Verified 10/14/21 17:29 erythromycin base Allergy Unknown Verified 10/14/21 17:29 latex Allergy Unknown Verified 10/14/21 17:29 Sulfa (Sulfonamide Allergy Unknown Verified 10/14/21 17:29 Antibiotics) - Past Medical History Past Medical History: Yes Neurological History: No Pertinent History ENT History: Cataracts Cardiac History: Arrhythmia, Congestive Heart Failure, Coronary Artery Disease, High Cholesterol, Hypertension, Myocardial Infarction ([place]) Respiratory History: Sleep Apnea Endocrine Medical History: Other Musculoskelatal History: Osteoarthritis GI Medical History: Gallbladder Disease History: Renal Disease Pyscho-Social History: No Pertinent History Reproductive Disorders: No Pertinent History Comment: STAGE 3 CKD D/T SCI[employer]IST USE OF ARTHRITIS MEDICINE, perforated bowel - Past Surgical History Past Surgical History: Yes Neuro Surgical History: No Pertinent History Cardiac History: Cardiac Catheterization, Cardiac Stent Respiratory Surgery: No Pertinent History GI Surgical History: Cholecystectomy, Colon Resection, Other Genitourinary Surgical Hx: No Pertinent History Musculskeletal Surgical Hx: Other Female Surgical History: No Pertinent History Other Surgical History: Sinus Surgery, Left Heel Surgery-hematoma, COLOSTOMY, PORT PLACEMENT, FISTULA FOR DIALYSIS - Social History Smoking Status: Never smoker Exposure to second hand smoke: No Alcohol: None Drug Use: none Significant Family History: no pertinent family hx - Physical Exam Vital Signs: Vital Signs - 24 hr Temp Pulse Resp BP Pulse Ox 01/02/22 20:00 98.0 F 75 19 124/58 91 L 01/02/22 18:37 98.0 F 81 146/67 94 L 01/02/22 17:25 94 L 01/02/22 17:00 98.0 F 81 16 146/67 94 L 01/02/22 16:45 98.0 F 81 16 146/67 96 01/02/22 16:21 98 01/02/22 16:08 78 20 122/60 98 01/02/22 15:18 98.7 F 83 18 98 01/02/22 14:47 76 20 174/89 98 01/02/22 14:12 95 01/02/22 13:41 97.5 F 97 H 20 174/89 98 General Appearance: mild distress, alert, lethargy Neurologic Exam: alert, oriented x 3, cooperative, normal mood/affect, nml cerebellar function, nml station & gait, sensation nml, No motor deficits Eye Exam: PERRL/EOMI, eyes nml inspection Ears, Nose, Throat Exam: normal ENT inspection, TMs normal, pharynx normal, moist mucous membranes Neck Exam: normal inspection, non-tender, supple, full range of motion Respiratory Exam: normal breath sounds, lungs clear, No respiratory distress Cardiovascular Exam: regular rate/rhythm, normal heart sounds, normal peripheral pulses Gastrointestinal/Abdomen Exam: soft, normal bowel sounds, No tenderness, No mass Back Exam: normal inspection, normal range of motion, No CVA tenderness, No vertebral tenderness Extremity Exam: normal inspection, normal range of motion, pelvis stable Skin Exam: normal color, warm, dry, No rash Lymphatic Exam: No adenopathy Results - Labs Lab/Micro Results: Lab Results-Last 24 Hours 01/02/22 01/02/22 01/02/22 Range/Units 14:13 14:20 14:20 WBC 4.9 (4.0-10.5) x10^3/uL RBC 3.30 L (4.1-5.4) x10^6/uL Hgb 10.6 L (12.0-16.0) g/dL Hct 33.0 L (35-47) % MCV 100.0 (78-100) fL MCH 32.1 H (26-32) pg MCHC 32.1 (32-36) g/dL RDW 15.1 H (11.5-14.0) % Plt Count 151 (150-450) x10^3/uL MPV 10.1 (7.5-11.0) fL Gran % 84.4 H (36.0-66.0) % Immature Gran % (Auto) 0.4 (0.00-0.4) % Nucleat RBC Rel Count 0.0 (0.00-0.1) % Eos # (Auto) 0.01 (0-0.5) x10^3/uL Immature Gran # (Auto) 0.02 (0.00-0.03) x10^3u/L Absolute Lymphs (auto) 0.32 L (1.0-4.6) x10^3/uL Absolute Monos (auto) 0.37 (0.0-1.3) x10^3/uL Absolute Nucleated RBC 0.00 (0.00-0.01) x10^3u/L Lymphocytes % 6.5 L (24.0-44.0) % Monocytes % 7.5 (0.0-12.0) % Eosinophils % 0.2 (0.00-5.0) % Basophils % 1.0 (0.0-0.4) % Absolute Granulocytes 4.17 (1.4-6.9) x10^3/uL Basophils # 0.05 (0-0.4) x10^3/uL Sodium 136 L (137-145) mmol/L Potassium 3.6 (3.5-5.1) mmol/L Chloride 101 (98-107) mmol/L Carbon Dioxide 26 (22-30) mmol/L Anion Gap 11.7 (5-15) MEQ/L BUN 24 H (7-17) mg/dL Creatinine 1.99 H (0.52-1.04) mg/dL Estimated GFR 25.6 ML/MIN Glucose 159 H (74-106) mg/dL Calcium 8.5 (8.4-10.2) mg/dL Total Bilirubin 0.80 (0.2-1.3) mg/dL AST 83 H (14-36) U/L ALT 43 H (0-35) U/L Alkaline Phosphatase 134 H (38-126) U/L Troponin I (0.000-0.034) ng/mL NT-Pro-B Natriuret Pep 811 (0-1800) pg/mL Serum Total Protein 6.5 (6.3-8.2) g/dL Albumin 3.2 L (3.5-5.0) g/dL Prealbumin (17.6-36.0) mg/dL Urinalys Dipstick Clnc MAIN LAB Urine Color DARK YELLOW (YELLOW) Urine Appearance CLEAR (CLEAR) Urine pH 5.5 (5-6) Ur Specific [place] >=1.030 (1.005-1.025) POC Urine Protein Conf TRACE (Negative) Urine Ketones NEGATIVE (NEGATIVE) Urine Nitrite NEGATIVE (NEGATIVE) Urine Bilirubin SMALL (NEGATIVE) Urine Urobilinogen 0.2 (0-1) mg/dL Urine Leukocytes NEGATIVE (NEGATIVE) Urine WBC (Auto) 3-5 (0-5) /HPF Urine RBC (Auto) 0-2 (0-2) /HPF U Hyaline Cast (Auto) 11-25 (0-2) /LPF U Epithel Cells (Auto) RARE (FEW) /HPF Urine Bacteria (Auto) NONE (NEGATIVE) /HPF Urine RBC TRACE-INTACT (0-5) Simone/ul Urine Mucus (Auto) SLIGHT (NEGATIVE) /HPF Ur Culture Indicated? YES Urine Glucose NEGATIVE (NEGATIVE) mg/dL Ethyl Alcohol < 10 (0-10) mg/dL Influenza Type A Ag (NEGATIVE) Influenza Type B Ag (NEGATIVE) RSV (PCR) (Negative) SARS-CoV-2 (PCR) (NEGATIVE) 01/02/22 01/02/22 01/02/22 Range/Units 14:20 15:09 17:45 WBC (4.0-10.5) x10^3/uL RBC (4.1-5.4) x10^6/uL Hgb (12.0-16.0) g/dL Hct (35-47) % MCV (78-100) fL MCH (26-32) pg MCHC (32-36) g/dL RDW (11.5-14.0) % Plt Count (150-450) x10^3/uL MPV (7.5-11.0) fL Gran % (36.0-66.0) % Immature Gran % (Auto) (0.00-0.4) % Nucleat RBC Rel Count (0.00-0.1) % Eos # (Auto) (0-0.5) x10^3/uL Immature Gran # (Auto) (0.00-0.03) x10^3u/L Absolute Lymphs (auto) (1.0-4.6) x10^3/uL Absolute Monos (auto) (0.0-1.3) x10^3/uL Absolute Nucleated RBC (0.00-0.01) x10^3u/L Lymphocytes % (24.0-44.0) % Monocytes % (0.0-12.0) % Eosinophils % (0.00-5.0) % Basophils % (0.0-0.4) % Absolute Granulocytes (1.4-6.9) x10^3/uL Basophils # (0-0.4) x10^3/uL Sodium (137-145) mmol/L Potassium (3.5-5.1) mmol/L Chloride (98-107) mmol/L Carbon Dioxide (22-30) mmol/L Anion Gap (5-15) MEQ/L BUN (7-17) mg/dL Creatinine (0.52-1.04) mg/dL Estimated GFR ML/MIN Glucose (74-106) mg/dL Calcium (8.4-10.2) mg/dL Total Bilirubin (0.2-1.3) mg/dL AST (14-36) U/L ALT (0-35) U/L Alkaline Phosphatase (38-126) U/L Troponin I 0.013 0.019 (0.000-0.034) ng/mL NT-Pro-B Natriuret Pep (0-1800) pg/mL Serum Total Protein (6.3-8.2) g/dL Albumin (3.5-5.0) g/dL Prealbumin (17.6-36.0) mg/dL Urinalys Dipstick Clnc Urine Color (YELLOW) Urine Appearance (CLEAR) Urine pH (5-6) Ur Specific [place] (1.005-1.025) POC Urine Protein Conf (Negative) Urine Ketones (NEGATIVE) Urine Nitrite (NEGATIVE) Urine Bilirubin (NEGATIVE) Urine Urobilinogen (0-1) mg/dL Urine Leukocytes (NEGATIVE) Urine WBC (Auto) (0-5) /HPF Urine RBC (Auto) (0-2) /HPF U Hyaline Cast (Auto) (0-2) /LPF U Epithel Cells (Auto) (FEW) /HPF Urine Bacteria (Auto) (NEGATIVE) /HPF Urine RBC (0-5) Simone/ul Urine Mucus (Auto) (NEGATIVE) /HPF Ur Culture Indicated? Urine Glucose (NEGATIVE) mg/dL Ethyl Alcohol (0-10) mg/dL Influenza Type A Ag NEGATIVE (NEGATIVE) Influenza Type B Ag NEGATIVE (NEGATIVE) RSV (PCR) NEGATIVE (Negative) SARS-CoV-2 (PCR) NEGATIVE (NEGATIVE) 01/02/22 Range/Units 17:45 WBC (4.0-10.5) x10^3/uL RBC (4.1-5.4) x10^6/uL Hgb (12.0-16.0) g/dL Hct (35-47) % MCV (78-100) fL MCH (26-32) pg MCHC (32-36) g/dL RDW (11.5-14.0) % Plt Count (150-450) x10^3/uL MPV (7.5-11.0) fL Gran % (36.0-66.0) % Immature Gran % (Auto) (0.00-0.4) % Nucleat RBC Rel Count (0.00-0.1) % Eos # (Auto) (0-0.5) x10^3/uL Immature Gran # (Auto) (0.00-0.03) x10^3u/L Absolute Lymphs (auto) (1.0-4.6) x10^3/uL Absolute Monos (auto) (0.0-1.3) x10^3/uL Absolute Nucleated RBC (0.00-0.01) x10^3u/L Lymphocytes % (24.0-44.0) % Monocytes % (0.0-12.0) % Eosinophils % (0.00-5.0) % Basophils % (0.0-0.4) % Absolute Granulocytes (1.4-6.9) x10^3/uL Basophils # (0-0.4) x10^3/uL Sodium (137-145) mmol/L Potassium (3.5-5.1) mmol/L Chloride (98-107) mmol/L Carbon Dioxide (22-30) mmol/L Anion Gap (5-15) MEQ/L BUN (7-17) mg/dL Creatinine (0.52-1.04) mg/dL Estimated GFR ML/MIN Glucose (74-106) mg/dL Calcium (8.4-10.2) mg/dL Total Bilirubin (0.2-1.3) mg/dL AST (14-36) U/L ALT (0-35) U/L Alkaline Phosphatase (38-126) U/L Troponin I (0.000-0.034) ng/mL NT-Pro-B Natriuret Pep (0-1800) pg/mL Serum Total Protein (6.3-8.2) g/dL Albumin (3.5-5.0) g/dL Prealbumin 14.94 L (17.6-36.0) mg/dL Urinalys Dipstick Clnc Urine Color (YELLOW) Urine Appearance (CLEAR) Urine pH (5-6) Ur Specific [place] (1.005-1.025) POC Urine Protein Conf (Negative) Urine Ketones (NEGATIVE) Urine Nitrite (NEGATIVE) Urine Bilirubin (NEGATIVE) Urine Urobilinogen (0-1) mg/dL Urine Leukocytes (NEGATIVE) Urine WBC (Auto) (0-5) /HPF Urine RBC (Auto) (0-2) /HPF U Hyaline Cast (Auto) (0-2) /LPF U Epithel Cells (Auto) (FEW) /HPF Urine Bacteria (Auto) (NEGATIVE) /HPF Urine RBC (0-5) Simone/ul Urine Mucus (Auto) (NEGATIVE) /HPF Ur Culture Indicated? Urine Glucose (NEGATIVE) mg/dL Ethyl Alcohol (0-10) mg/dL Influenza Type A Ag (NEGATIVE) Influenza Type B Ag (NEGATIVE) RSV (PCR) (Negative) SARS-CoV-2 (PCR) (NEGATIVE) - Radiology Impressions Radiology Exams & Impressions: Radiology Procedures Category Date Time Status ABDOMEN AND PELVIS W/0 CONTRAS [CT] Stat Exams 01/02/22 13:39 Completed CHEST 1 VIEW (PORTABLE) Stat Exams 01/02/22 13:41 Completed HEAD WITHOUT CONTRAST [CT] Stat Exams 01/02/22 13:39 Completed - Other Procedures and Tests Respiratory Therapy 01/02/22 16:52 Oxygen NASAL CANNULA 2 lpm 01/02/22 18:55 RT Screen per Nursing Assess ONCE 01/02/22 21:00 BiPap/CPAP ROUTINE Assessment/Plan (1) Congestive heart failure Current Visit: Yes Status: Acute Qualifiers: Heart failure type: combined systolic and diastolic Heart failure chronicity: acute on chronic Qualified Code(s): I50.43 - Acute on chronic combined systolic (congestive) and diastolic (congestive) heart failure Assessment & Plan: Chief Complaint Diagnosis CHF Allergies Allergy/AdvReac Type Severity Reaction Status Date / Time codeine Allergy Unknown Verified 10/14/21 17:29 erythromycin base Allergy Unknown Verified 10/14/21 17:29 latex Allergy Unknown Verified 10/14/21 17:29 Sulfa (Sulfonamide Allergy Unknown Verified 10/14/21 17:29 Antibiotics) Vital Signs (Last 24 hours) Temp Pulse Resp BP Pulse Ox 01/02/22 20:00 98.0 F 75 19 124/58 91 L 01/02/22 18:37 98.0 F 81 146/67 94 L 01/02/22 17:25 94 L 01/02/22 17:00 98.0 F 81 16 146/67 94 L 01/02/22 16:45 98.0 F 81 16 146/67 96 01/02/22 16:21 98 01/02/22 16:08 78 20 122/60 98 01/02/22 15:18 98.7 F 83 18 98 01/02/22 14:47 76 20 174/89 98 01/02/22 14:12 95 01/02/22 13:41 97.5 F 97 H 20 174/89 98 Home Medications Medication Instructions Recorded Confirmed Last Taken Type Albuterol Sulfate [Albuterol 2 puff IH Q6H 01/02/22 01/02/22 Unknown History Sulfate Hfa] Amiodarone HCl 200 mg 200 mg PO DAILY 01/02/22 01/02/22 Unknown History [Cordarone 200 MG] Benzonatate 200 mg PO BID 01/02/22 01/02/22 Unknown History Loratadine 10 mg [Claritin 10 10 mg PO DAILY 01/02/22 01/02/22 Unknown History mg] Midodrine HCl [Proamatine] 5 mg PO TID 01/02/22 01/02/22 Unknown History Omeprazole 40 mg PO DAILY 01/02/22 01/02/22 Unknown History Ondansetron ODT 4 MG [Zofran 4 mg PO Q4HPRN PRN 01/02/22 01/02/22 Unknown History Odt 4 mg] diphenhydrAMINE HCL [Benadryl] 50 mg PO DAILY PRN PRN 01/02/22 01/02/22 Unknown History Current Medications Generic Name Dose Route Start Last Admin Trade Name Freq PRN Reason Stop Dose Admin Acetaminophen 650 mg 01/02/22 20:06 Acetaminophen 325 Mg Tablet PO 02/01/22 20:05 Q4H PRN PRN PAIN AND/OR FEVER Apixaban 2.5 mg 01/02/22 22:00 Apixaban 2.5 Mg Tablet PO 02/01/22 21:59 BID ALISHA Benzonatate 200 mg 01/02/22 20:07 Benzonatate 100 Mg Capsule PO 02/01/22 20:06 BIDPRN PRN COUGH Diphenhydramine HCl 50 mg 01/02/22 20:08 Diphenhydramine Hcl 25 Mg Capsule PO 02/01/22 20:07 HS PRN PRN ALLERGIES Famotidine 40 mg 01/02/22 22:00 Famotidine 20 Mg Tablet PO 02/01/22 21:59 HS ALISHA Fluoxetine HCl 20 mg 01/02/22 22:00 Fluoxetine Hcl 20 Mg Cap PO 02/01/22 21:59 QHS ALISHA Midodrine 5 mg 01/02/22 22:00 Midodrine Hcl 5 Mg Tablet PO 01/02/22 22:01 ONCE ONE Ondansetron HCl 4 mg 01/02/22 18:33 01/02/22 18:36 Zofran 4 Mg/Udtablet Orally Disintegrating PO 02/01/22 18:32 4 mg Q4H PRN PRN Administration NAUSEA/VOMITING Discontinued Medications Generic Name Dose Route Start Last Admin Trade Name Freq PRN Reason Stop Dose Admin Furosemide 40 mg 01/02/22 15:17 01/02/22 15:23 Furosemide 40 Mg/4 Ml Vial IV 01/02/22 15:18 40 mg STAT ONE Administration Furosemide Confirm 01/02/22 15:22 Furosemide 40 Mg/4 Ml Vial Administered 01/02/22 15:23 Dose 40 mg .ROUTE .STK-MED ONE Lidocaine HCl Confirm 01/02/22 15:44 Lidocaine - Mpf 2% 5 Ml Vial Administered 01/02/22 15:45 Dose 5 ml .ROUTE .STK-MED ONE Intake & Output (Last 24 hours) 12/31/21 01/01/22 01/02/22 01/03/22 11:59 11:59 11:59 11:59 Intake Total 0 Output Total 200 Balance -200 Weight 123.2 kg Microbiology Results (Last 24 hours) 01/02/22 14:13 Urine, Catheterized Urine Culture - Pending Laboratory Results (Last 24 hours) 01/02/22 01/02/22 01/02/22 17:45 17:45 15:09 WBC RBC Hgb Hct MCV MCH MCHC RDW Plt Count MPV Gran % Immature Gran % (Auto) Nucleat RBC Rel Count Eos # (Auto) Immature Gran # (Auto) Absolute Lymphs (auto) Absolute Monos (auto) Absolute Nucleated RBC Lymphocytes % Monocytes % Eosinophils % Basophils % Absolute Granulocytes Basophils # Sodium Potassium Chloride Carbon Dioxide Anion Gap BUN Creatinine Estimated GFR Glucose Calcium Total Bilirubin AST ALT Alkaline Phosphatase Troponin I 0.019 NT-Pro-B Natriuret Pep Serum Total Protein Albumin Prealbumin 14.94 L Urinalys Dipstick Clnc Urine Color Urine Appearance Urine pH Ur Specific [place] POC Urine Protein Conf Urine Ketones Urine Nitrite Urine Bilirubin Urine Urobilinogen Urine Leukocytes Urine WBC (Auto) Urine RBC (Auto) U Hyaline Cast (Auto) U Epithel Cells (Auto) Urine Bacteria (Auto) Urine RBC Urine Mucus (Auto) Ur Culture Indicated? Urine Glucose Ethyl Alcohol Influenza Type A Ag NEGATIVE Influenza Type B Ag NEGATIVE RSV (PCR) NEGATIVE SARS-CoV-2 (PCR) NEGATIVE 01/02/22 01/02/22 01/02/22 14:20 14:20 14:20 WBC 4.9 RBC 3.30 L Hgb 10.6 L Hct 33.0 L MCV 100.0 MCH 32.1 H MCHC 32.1 RDW 15.1 H Plt Count 151 MPV 10.1 Gran % 84.4 H Immature Gran % (Auto) 0.4 Nucleat RBC Rel Count 0.0 Eos # (Auto) 0.01 Immature Gran # (Auto) 0.02 Absolute Lymphs (auto) 0.32 L Absolute Monos (auto) 0.37 Absolute Nucleated RBC 0.00 Lymphocytes % 6.5 L Monocytes % 7.5 Eosinophils % 0.2 Basophils % 1.0 Absolute Granulocytes 4.17 Basophils # 0.05 Sodium 136 L Potassium 3.6 Chloride 101 Carbon Dioxide 26 Anion Gap 11.7 BUN 24 H Creatinine 1.99 H Estimated GFR 25.6 Glucose 159 H Calcium 8.5 Total Bilirubin 0.80 AST 83 H ALT 43 H Alkaline Phosphatase 134 H Troponin I 0.013 NT-Pro-B Natriuret Pep 811 Serum Total Protein 6.5 Albumin 3.2 L Prealbumin Urinalys Dipstick Clnc Urine Color Urine Appearance Urine pH Ur Specific [place] POC Urine Protein Conf Urine Ketones Urine Nitrite Urine Bilirubin Urine Urobilinogen Urine Leukocytes Urine WBC (Auto) Urine RBC (Auto) U Hyaline Cast (Auto) U Epithel Cells (Auto) Urine Bacteria (Auto) Urine RBC Urine Mucus (Auto) Ur Culture Indicated? Urine Glucose Ethyl Alcohol < 10 Influenza Type A Ag Influenza Type B Ag RSV (PCR) SARS-CoV-2 (PCR) 01/02/22 14:13 WBC RBC Hgb Hct MCV MCH MCHC RDW Plt Count MPV Gran % Immature Gran % (Auto) Nucleat RBC Rel Count Eos # (Auto) Immature Gran # (Auto) Absolute Lymphs (auto) Absolute Monos (auto) Absolute Nucleated RBC Lymphocytes % Monocytes % Eosinophils % Basophils % Absolute Granulocytes Basophils # Sodium Potassium Chloride Carbon Dioxide Anion Gap BUN Creatinine Estimated GFR Glucose Calcium Total Bilirubin AST ALT Alkaline Phosphatase Troponin I NT-Pro-B Natriuret Pep Serum Total Protein Albumin Prealbumin Urinalys Dipstick Clnc MAIN LAB Urine Color DARK YELLOW Urine Appearance CLEAR Urine pH 5.5 Ur Specific [place] >=1.030 POC Urine Protein Conf TRACE Urine Ketones NEGATIVE Urine Nitrite NEGATIVE Urine Bilirubin SMALL Urine Urobilinogen 0.2 Urine Leukocytes NEGATIVE Urine WBC (Auto) 3-5 Urine RBC (Auto) 0-2 U Hyaline Cast (Auto) 11-25 U Epithel Cells (Auto) RARE Urine Bacteria (Auto) NONE Urine RBC TRACE-INTACT Urine Mucus (Auto) SLIGHT Ur Culture Indicated? YES Urine Glucose NEGATIVE Ethyl Alcohol Influenza Type A Ag Influenza Type B Ag RSV (PCR) SARS-CoV-2 (PCR) Orders (Last 24 hours) Category Date Time Status Bedrest ROUTINE Activity 01/02/22 16:52 Active Blood And Plasma Laboratory Assistant STAT Care 01/02/22 13:41 Completed Code Status Order ROUTINE Care 01/02/22 16:52 Active EKG-ER Only STAT Care 01/02/22 13:40 Completed [place] [Catheter-[place]] STAT Care 01/02/22 14:13 Completed IV Care Q6H Care 01/02/22 16:52 Active IV Insertion STAT Care 01/02/22 13:40 Completed Implement CHF Pathway ROUTINE Care 01/02/22 16:[address] in Observation ROUTINE Care 01/02/22 16:52 Active Pulse Oximetry (ED) STAT Care 01/02/22 13:40 Completed Telemetry q6h Care 01/02/22 16:52 Active Weight,Daily 0600 Care 01/02/22 16:52 Active Consult Nephrology ROUTINE Cons 01/03/22 08:00 Active Infection Control Consult ROUTINE Cons 01/02/22 18:55 Active Front Desk Person/Discharge Plan ROUTINE Cons 01/02/22 18:55 Active Consistent Carbohydrate Diet 1800 Calorie Diet 01/02/22 Dinner Active ABDOMEN AND PELVIS W/0 CONTRAS [CT] Stat Exams 01/02/22 13:39 Completed CHEST 1 VIEW (PORTABLE) Stat Exams 01/02/22 13:41 Completed HEAD WITHOUT CONTRAST [CT] Stat Exams 01/02/22 13:39 Completed BMP AM.LAB Lab 01/03/22 04:00 Ordered CBC AM.LAB Lab 01/03/22 04:00 Ordered CBC W DIFF Stat Lab 01/02/22 14:20 Completed CMP Stat Lab 01/02/22 14:20 Completed COVID/FLU/RSV Panel Stat Lab 01/02/22 15:09 Completed CULTURE,URINE Stat Lab 01/02/22 14:13 Received ETHYL ALCOHOL Stat Lab 01/02/22 14:20 Completed NT PRO BNP AM.LAB Lab 01/03/22 04:00 Ordered NT PRO BNP Stat Lab 01/02/22 14:20 Completed PREALBUMIN Routine Lab 01/02/22 17:45 Completed TROPONIN Q4H Lab 01/02/22 14:20 Completed TROPONIN Q4H Lab 01/02/22 17:45 Completed TROPONIN Q4H Lab 01/02/22 21:45 Ordered TROPONIN Q4H Lab 01/03/22 00:52 Ordered UA W/RFX CULTURE Stat Lab 01/02/22 14:13 Completed Acetaminophen 325 mg [Tylenol 325 mg] Med 01/02/22 20:06 Active 650 mg PO Q4H PRN PRN Apixaban [Eliquis 2.5 mg Tablet] Med 01/02/22 22:00 Active 2.5 mg PO BID Benzonatate 100 mg [Tessalon Perles 100 MG] Med 01/02/22 20:07 Active 200 mg PO BIDPRN PRN Diphenhydramine HCl 25 mg [Benadryl 25 mg Capsule Med 01/02/22 20:08 Active ] 50 mg PO HS PRN PRN Famotidine 20 mg [Pepcid 20 MG] Med 01/02/22 22:00 Active 40 mg PO HS Fluoxetine HCl 20 mg [Prozac 20 MG] Med 01/02/22 22:00 Active 20 mg PO QHS Furosemide 40 mg/4 ml [Lasix 40 MG/4 ML] Med 01/02/22 15:22 Discontinued 40 mg .ROUTE .STK-MED ONE Furosemide 40 mg/4 ml [Lasix 40 MG/4 ML] Med 01/02/22 15:17 Discontinued 40 mg IV STAT ONE Lidocaine HCl 2% Mpf 5 ml [Xylocaine-Mpf 2% 5 Ml Med 01/02/22 15:44 Discontinued Vial] 5 ml .ROUTE .STK-MED ONE Midodrine HCl [Proamatine] Med 01/02/22 22:00 Once 5 mg PO ONCE ONE Ondansetron ODT 4 MG [Zofran Odt 4 mg] Med 01/02/22 18:33 Active 4 mg PO Q4H PRN PRN BiPap/CPAP ROUTINE RT 01/02/22 21:00 Active Oxygen NASAL CANNULA 2 lpm RT 01/02/22 16:52 Active Pulse Oximetry .spot check RT 01/02/22 17:23 Active RT Screen per Nursing Assess ONCE RT 01/02/22 18:55 Active Transfer Order Routine Transfer 01/02/22 Completed Code(s): I50.9 - HEART FAILURE, UNSPECIFIED (2) ESRD (end stage renal disease) on dialysis Current Visit: No Status: Acute Code(s): N18.6 - END STAGE RENAL DISEASE; Z99.2 - DEPENDENCE ON RENAL DIALYSIS (3) Shortness of breath Current Visit: No Status: Acute Code(s): R06.02 - SHORTNESS OF BREATH
[2022-01-02] MEDS ORDERED: PROAMATINE PO ONE (22:00)
[2022-01-02] MEDS: BENADRYL 25 MG CAPSULE PO PRN (22:43)
[2022-01-02] MEDS: Prozac 20 MG PO SCH (22:43)
[2022-01-02] MEDS: Pepcid 20 MG PO SCH (22:43)
[2022-01-02] MEDS: ELIQUIS 2.5 MG TABLET PO SCH (22:43)
[2022-01-02] MEDS: TYLENOL 325 MG PO PRN (22:43)
[2022-01-03] MEDS ORDERED: Valium 5 MG PO ONE (01:50)
[2022-01-03] MEDS: TYLENOL 325 MG PO PRN (03:29)
[2022-01-03 04:38] LABS: Hematocrit 30.5 % (35-47); Hemoglobin 9.9 g/dL (12.0-16.0); Mean Cell Volume 98.7 fL (78-100); Mean Corpuscular Hgb Concent. 32.5 g/dL (32-36); Mean Platelet Volume 10.1 fL (7.5-11.0); Platelet Count 161 x10^3/uL (150-450); Red Blood Count 3.09 x10^6/uL (4.1-5.4); Red Cell Distribution Width 15.5 % (11.5-14.0); White Blood Count 6.6 x10^3/uL (4.0-10.5)
[2022-01-03 05:10] LABS: ANION GAP 8.2 MEQ/L (5-15); Calcium 8.5 mg/dL (8.4-10.2); Creatinine 1 2.44 mg/dL (0.52-1.04); EST GLOMERULAR FILTRATION RATE 20.2 ML/MIN; Potassium 3.6 mmol/L (3.5-5.1)
[2022-01-03] MEDS: VENTOLIN COMMON CANISTER IH SCH ×3 (07:40→17:21)
[2022-01-03] MEDS ORDERED: NON-FORMULARY ITEM (Omeprazole [Omeprazole] 40 MG Capsule.Dr) PO SCH (10:00)
[2022-01-03] MEDS ORDERED: Lasix 40 MG/4 ML IV ONE (11:00)
[2022-01-03] MEDS: SYNTHROID 50 MCG PO SCH (11:55)
[2022-01-03] MEDS: ELIQUIS 2.5 MG TABLET PO SCH ×2 (11:55→20:10)
[2022-01-03] MEDS: ZYLOPRIM 100 MG PO SCH (11:55)
[2022-01-03] MEDS: Cordarone 200 MG PO SCH (11:55)
[2022-01-03] MEDS: CLARITIN 10 MG PO SCH (11:55)
[2022-01-03] MEDS: Protonix 40MG Tablet PO SCH (11:56)
[2022-01-03] MEDS: ZOFRAN ODT 4 MG PO PRN (14:24)
[2022-01-03] MEDS ORDERED: PHENERGAN 25 MG PO ONE (14:54)
--- NOTE | 2022-01-03 17:34 | PCM.NOTE ---
Date and Time: 01/03/221732 Subjective Assessment: feeling weak - Review of Systems Constitutional: Fatigue, Lethargy, Weakness, No Fever, No Chills Eyes: No Symptoms Ears, Nose, & Throat: No Symptoms Respiratory: No Cough, No Short Of Breath Cardiac: No Chest Pain, No Edema, No Syncope Abdominal/Gastrointestinal: No Abdominal Pain, No Nausea, No Vomiting, No Diarrhea Genitourinary Symptoms: No Dysuria Musculoskeletal: No Back Pain, No Neck Pain Skin: No Rash Neurological: No Dizziness, No Focal Weakness, No Sensory Changes Psychological: No Symptoms Endocrine: No Symptoms Hematologic/Lymphatic: No Symptoms Immunological/Allergic: No Symptoms Objective Exam General Appearance: mild distress, alert Neurologic Exam: alert, oriented x 3, cooperative, normal mood/affect, sensation nml, No motor deficits Skin Exam: normal color, warm, dry Eye Exam: PERRL, EOMI, eyes nml inspection Ears, Nose, Throat Exam: normal ENT inspection, pharynx normal, moist mucous membranes Neck Exam: normal inspection, non-tender, supple, full range of motion Respiratory Exam: normal breath sounds, lungs clear, No respiratory distress Cardiovascular Exam: regular rate/rhythm, normal heart sounds Gastrointestinal/Abdomen Exam: soft, No tenderness, No mass Extremity Exam: normal inspection, normal range of motion Back Exam: normal inspection, normal range of motion, No CVA tenderness, No vertebral tenderness Pelvic Exam: deferred Rectal Exam: deferred OBJECTIVE DATA Vital Signs: Vital Signs - 24 hr Temp Pulse Resp BP Pulse Ox 01/03/22 17:22 65 16 96 01/03/22 16:00 97.5 F 70 18 146/64 97 01/03/22 13:07 71 16 97 01/03/22 11:30 98.3 F 69 18 120/56 96 01/03/22 07:42 64 18 95 01/03/22 07:30 97.5 F 65 16 104/49 94 L 01/03/22 07:11 97 01/03/22 04:00 98.0 F 68 20 130/60 96 01/02/22 23:38 98.5 F 68 20 116/54 92 L 01/02/22 20:00 98.0 F 75 19 124/58 91 L 01/02/22 19:30 97 01/02/22 18:37 98.0 F 81 146/67 94 L Pain Assessment - Last Documented Pain Intensity 3 Pain Scale Used 0-10 Pain Scale Intake and Output: Intake & Output 01/01/22 01/02/22 01/03/22 01/04/22 11:59 11:59 11:59 11:59 Intake Total 440 60 Output Total 250 Balance 190 60 Weight 123.3 kg Lab Results: Lab Results-Last 24 Hours 01/02/22 01/02/22 01/02/22 Range/Units 17:45 17:45 21:30 WBC (4.0-10.5) x10^3/uL RBC (4.1-5.4) x10^6/uL Hgb (12.0-16.0) g/dL Hct (35-47) % MCV (78-100) fL MCH (26-32) pg MCHC (32-36) g/dL RDW (11.5-14.0) % Plt Count (150-450) x10^3/uL MPV (7.5-11.0) fL Sodium (137-145) mmol/L Potassium (3.5-5.1) mmol/L Chloride (98-107) mmol/L Carbon Dioxide (22-30) mmol/L Anion Gap (5-15) MEQ/L BUN (7-17) mg/dL Creatinine (0.52-1.04) mg/dL Estimated GFR ML/MIN Glucose (74-106) mg/dL POC Glucometer (74 to 106) mg/dL Calcium (8.4-10.2) mg/dL Troponin I 0.019 0.024 (0.000-0.034) ng/mL NT-Pro-B Natriuret Pep (0-1800) pg/mL Prealbumin 14.94 L (17.6-36.0) mg/dL 01/02/22 01/03/22 01/03/22 Range/Units 22:09 04:20 04:20 WBC 6.6 (4.0-10.5) x10^3/uL RBC 3.09 L (4.1-5.4) x10^6/uL Hgb 9.9 L (12.0-16.0) g/dL Hct 30.5 L (35-47) % MCV 98.7 (78-100) fL MCH 32.0 (26-32) pg MCHC 32.5 (32-36) g/dL RDW 15.5 H (11.5-14.0) % Plt Count 161 (150-450) x10^3/uL MPV 10.1 (7.5-11.0) fL Sodium 136 L (137-145) mmol/L Potassium 3.6 (3.5-5.1) mmol/L Chloride 103 (98-107) mmol/L Carbon Dioxide 29 (22-30) mmol/L Anion Gap 8.2 (5-15) MEQ/L BUN 29 H (7-17) mg/dL Creatinine 2.44 H (0.52-1.04) mg/dL Estimated GFR 20.2 ML/MIN Glucose 86 (74-106) mg/dL POC Glucometer 109 H (74 to 106) mg/dL Calcium 8.5 (8.4-10.2) mg/dL Troponin I (0.000-0.034) ng/mL NT-Pro-B Natriuret Pep 1290 (0-1800) pg/mL Prealbumin (17.6-36.0) mg/dL Radiology Exams: Radiology Procedures Category Date Time Status ABDOMEN AND PELVIS W/0 CONTRAS [CT] Stat Exams 01/02/22 13:39 Completed CHEST 1 VIEW (PORTABLE) Stat Exams 01/02/22 13:41 Completed HEAD WITHOUT CONTRAST [CT] Stat Exams 01/02/22 13:39 Completed Multi-Disciplinary Progress Notes: Multi-Disciplinary Progress Notes 01/03/22 12:44 Case Management Note by BevPina PATIENT'S DAUGHTER IN LAW HERE, SHE DOES MOST OF CARE FOR PATIENT. SHE STATES SHE THINKS PATIENT WOULD BENEFIT FROM REHAB STAY, SHE DOES NOT THINK IT IS SAFE FOR HER TO GO HOME AT THIS TIME. PATIENT IS AGREEABLE TO THAT. DIL REQUESTS [facility] SHE HAS BEEN THERE BEFORE. PHONED ,THEY STATE FAX CLINICAL AND THEY WILL REVIEW AND PHONE BACK, BUT THEY DO ANTICIPATE BEING ABLE TO ACCEPT PATIENT. FAXED CLINICAL AND FACESHEET. Initialized on 01/03/22 12:44 - END OF NOTE Assessment/Plan (1) Congestive heart failure Current Visit: Yes Status: Acute Qualifiers: Heart failure type: combined systolic and diastolic Heart failure chronicity: acute on chronic Qualified Code(s): I50.43 - Acute on chronic combined systolic (congestive) and diastolic (congestive) heart failure Assessment & Plan: Abnormal Lab Results 01/02/22 01/02/22 01/03/22 Range/Units 17:45 22:09 04:20 RBC 3.09 L (4.1-5.4) x10^6/uL Hgb 9.9 L (12.0-16.0) g/dL Hct 30.5 L (35-47) % RDW 15.5 H (11.5-14.0) % Sodium (137-145) mmol/L BUN (7-17) mg/dL Creatinine (0.52-1.04) mg/dL POC Glucometer 109 H (74 to 106) mg/dL Prealbumin 14.94 L (17.6-36.0) mg/dL 01/03/22 Range/Units 04:20 RBC (4.1-5.4) x10^6/uL Hgb (12.0-16.0) g/dL Hct (35-47) % RDW (11.5-14.0) % Sodium 136 L (137-145) mmol/L BUN 29 H (7-17) mg/dL Creatinine 2.44 H (0.52-1.04) mg/dL POC Glucometer (74 to 106) mg/dL Prealbumin (17.6-36.0) mg/dL Chief Complaint Diagnosis shortness of breath and altered mental status for 4-6 hours Allergies Allergy/AdvReac Type Severity Reaction Status Date / Time codeine Allergy Unknown Verified 10/14/21 17:29 erythromycin base Allergy Unknown Verified 10/14/21 17:29 latex Allergy Unknown Verified 10/14/21 17:29 Sulfa (Sulfonamide Allergy Unknown Verified 10/14/21 17:29 Antibiotics) Vital Signs (Last 24 hours) Temp Pulse Resp BP Pulse Ox 01/03/22 17:22 65 16 96 01/03/22 16:00 97.5 F 70 18 146/64 97 01/03/22 13:07 71 16 97 01/03/22 11:30 98.3 F 69 18 120/56 96 01/03/22 07:42 64 18 95 01/03/22 07:30 97.5 F 65 16 104/49 94 L 01/03/22 07:11 97 01/03/22 04:00 98.0 F 68 20 130/60 96 01/02/22 23:38 98.5 F 68 20 116/54 92 L 01/02/22 20:00 98.0 F 75 19 124/58 91 L 01/02/22 19:30 97 01/02/22 18:37 98.0 F 81 146/67 94 L Home Medications Medication Instructions Recorded Confirmed Last Taken Type Albuterol Sulfate [Albuterol 2 puff IH Q6H 01/02/22 01/02/22 Unknown History Sulfate Hfa] Amiodarone HCl 200 mg 200 mg PO DAILY 01/02/22 01/02/22 Unknown History [Cordarone 200 MG] Benzonatate 200 mg PO BID 01/02/22 01/02/22 Unknown History Loratadine 10 mg [Claritin 10 10 mg PO DAILY 01/02/22 01/02/22 Unknown History mg] Midodrine HCl [Proamatine] 5 mg PO TID 01/02/22 01/02/22 Unknown History Omeprazole 40 mg PO DAILY 01/02/22 01/02/22 Unknown History Ondansetron ODT 4 MG [Zofran 4 mg PO Q4HPRN PRN 01/02/22 01/02/22 Unknown History Odt 4 mg] diphenhydrAMINE HCL [Benadryl] 50 mg PO DAILY PRN PRN 01/02/22 01/02/22 Unknown History Current Medications Generic Name Dose Route Start Last Admin Trade Name Freq PRN Reason Stop Dose Admin Acetaminophen 650 mg 01/02/22 20:06 01/03/22 03:29 Acetaminophen 325 Mg Tablet PO 02/01/22 20:05 650 mg Q4H PRN PRN Administration PAIN AND/OR FEVER Albuterol Sulfate 2 puff 01/03/22 07:00 01/03/22 17:21 Albuterol Common Canister Inhaler IH 02/02/22 06:59 2 puff Q6HRT ALISHA Administration Allopurinol 100 mg 01/03/22 10:00 01/03/22 11:55 Allopurinol 100 Mg Tablet PO 02/02/22 09:59 100 mg DAILY ALISHA Administration Amiodarone HCl 200 mg 01/03/22 10:00 01/03/22 11:55 Amiodarone Hcl 200 Mg Tab PO 02/02/22 09:59 200 mg DAILY ALISHA Administration Apixaban 2.5 mg 01/02/22 22:00 01/03/22 11:55 Apixaban 2.5 Mg Tablet PO 02/01/22 21:59 2.5 mg BID ALISHA Administration Benzonatate 200 mg 01/02/22 20:07 01/03/22 11:56 Benzonatate 100 Mg Capsule PO 02/01/22 20:06 200 mg BIDPRN PRN Administration COUGH Diphenhydramine HCl 50 mg 01/02/22 20:08 01/02/22 22:43 Diphenhydramine Hcl 25 Mg Capsule PO 02/01/22 20:07 50 mg HS PRN PRN Administration ALLERGIES Ergocalciferol 50,000 unit 01/07/22 10:00 Ergocalciferol (Vitamin D2) 50,000 Unit Capsule PO 02/06/22 09:59 Sol@1000 ALISHA Famotidine 40 mg 01/02/22 22:00 01/02/22 22:43 Famotidine 20 Mg Tablet PO 02/01/22 21:59 40 mg HS ALISHA Administration Fluoxetine HCl 20 mg 01/02/22 22:00 01/02/22 22:43 Fluoxetine Hcl 20 Mg Cap PO 02/01/22 21:59 20 mg QHS ALISHA Administration Levothyroxine Sodium 50 mcg 01/03/22 10:00 01/03/22 11:55 Levothyroxine Sodium 50 Mcg Tablet PO 02/02/22 09:59 50 mcg DAILY ALISHA Administration Loratadine 10 mg 01/03/22 10:00 01/03/22 11:55 Loratadine 10 Mg Tablet PO 02/02/22 09:59 10 mg DAILY ALISHA Administration Midodrine 5 mg 01/04/22 10:00 Midodrine Hcl 5 Mg Tablet PO 02/03/22 09:59 TuTh@1000,1500,2200 [facility] Ondansetron HCl 4 mg 01/02/22 18:33 01/03/22 14:24 Zofran 4 Mg/Udtablet Orally Disintegrating PO 02/01/22 18:32 4 mg Q4H PRN PRN Administration NAUSEA/VOMITING Pantoprazole Sodium 40 mg 01/03/22 10:00 01/03/22 11:56 Protonix (Pantoprazole) 40 Mg Tablet PO 02/02/22 09:59 40 mg DAILY ALISHA Administration Discontinued Medications Generic Name Dose Route Start Last Admin Trade Name Nikhil JUSTICE Reason Stop Dose Admin Diazepam 5 mg 01/03/22 01:50 01/03/22 01:59 Diazepam 5 Mg Tablet PO 01/03/22 01:51 5 mg ONCE ONE Administration Furosemide 40 mg 01/02/22 15:17 01/02/22 15:23 Furosemide 40 Mg/4 Ml Vial IV 01/02/22 15:18 40 mg STAT ONE Administration Furosemide Confirm 01/02/22 15:22 Furosemide 40 Mg/4 Ml Vial Administered 01/02/22 15:23 Dose 40 mg .ROUTE .STK-MED ONE Furosemide 40 mg 01/03/22 11:00 01/03/22 11:50 Furosemide 40 Mg/4 Ml Vial IV 01/03/22 11:01 40 mg STAT ONE Administration Lidocaine HCl Confirm 01/02/22 15:44 Lidocaine - Mpf 2% 5 Ml Vial Administered 01/02/22 15:45 Dose 5 ml .ROUTE .STK-MED ONE Midodrine 5 mg 01/02/22 22:00 01/02/22 23:14 Midodrine Hcl 5 Mg Tablet PO 01/02/22 22:01 5 mg ONCE ONE Administration Promethazine HCl 12.5 mg 01/03/22 14:54 01/03/22 15:00 Promethazine Hcl 25 Mg Tablet PO 01/03/22 14:55 12.5 mg STAT ONE Administration Intake & Output (Last 24 hours) 01/01/22 01/02/22 01/03/22 01/04/22 11:59 11:59 11:59 11:59 Intake Total 440 60 Output Total 250 Balance 190 60 Weight 123.3 kg Microbiology Results (Last 24 hours) 01/02/22 14:13 Urine, Catheterized Urine Culture - Preliminary NO GROWTH TO DATE Laboratory Results (Last 24 hours) 01/03/22 01/03/22 01/02/22 04:20 04:20 22:09 WBC 6.6 RBC 3.09 L Hgb 9.9 L Hct 30.5 L MCV 98.7 MCH 32.0 MCHC 32.5 RDW 15.5 H Plt Count 161 MPV 10.1 Sodium 136 L Potassium 3.6 Chloride 103 Carbon Dioxide 29 Anion Gap 8.2 BUN 29 H Creatinine 2.44 H Estimated GFR 20.2 Glucose 86 POC Glucometer 109 H Calcium 8.5 Troponin I NT-Pro-B Natriuret Pep 1290 Prealbumin 01/02/22 01/02/22 01/02/22 21:30 17:45 17:45 WBC RBC Hgb Hct MCV MCH MCHC RDW Plt Count MPV Sodium Potassium Chloride Carbon Dioxide Anion Gap BUN Creatinine Estimated GFR Glucose POC Glucometer Calcium Troponin I 0.024 0.019 NT-Pro-B Natriuret Pep Prealbumin 14.94 L Orders (Last 24 hours) Category Date Time Status Bedrest ROUTINE Activity 01/02/22 16:52 Active Code Status Order ROUTINE Care 01/02/22 16:52 Active IV Care Q6H Care 01/02/22 16:52 Active Implement CHF Pathway ROUTINE Care 01/02/22 16:[address] in Observation ROUTINE Care 01/02/22 16:52 Active Telemetry q6h Care 01/02/22 16:52 Active Weight,Daily 0600 Care 01/02/22 16:52 Active Consult Nephrology ROUTINE Cons 01/03/22 08:00 Active Infection Control Consult ROUTINE Cons 01/02/22 18:55 Active Weaving Inspector/Discharge Plan ROUTINE Cons 01/02/22 18:55 Active Discharge Planning,Consult Routine Discharge 01/03/22 Active BMP AM.LAB Lab 01/03/22 04:20 Completed CBC AM.LAB Lab 01/03/22 04:20 Completed NT PRO BNP AM.LAB Lab 01/03/22 04:20 Completed POCT GLUCOSE Stat Lab 01/02/22 22:09 Completed PREALBUMIN Routine Lab 01/02/22 17:45 Completed TROPONIN Q4H Lab 01/02/22 17:45 Completed TROPONIN Q4H Lab 01/02/22 21:30 Completed Acetaminophen 325 mg [Tylenol 325 mg] Med 01/02/22 20:06 Active 650 mg PO Q4H PRN PRN Albuterol Common Canister [Ventolin Common Canister* Med 01/03/22 07:00 Active ] 2 puff IH Q6HRT Allopurinol 100 mg [Zyloprim 100 mg] Med 01/03/22 10:00 Active 100 mg PO DAILY Amiodarone HCl 200 mg [Cordarone 200 MG] Med 01/03/22 10:00 Active 200 mg PO DAILY Apixaban [Eliquis 2.5 mg Tablet] Med 01/02/22 22:00 Active 2.5 mg PO BID Benzonatate 100 mg [Tessalon Perles 100 MG] Med 01/02/22 20:07 Active 200 mg PO BIDPRN PRN Diazepam 5 mg [Valium 5 MG] Med 01/03/22 01:50 Discontinued 5 mg PO ONCE ONE Diphenhydramine HCl 25 mg [Benadryl 25 mg Capsule Med 01/02/22 20:08 Active ] 50 mg PO HS PRN PRN Ergocalciferol (Vitamin D2) [Vitamin D2] Med 01/07/22 10:00 Active 50,000 unit PO Sol@1000 Famotidine 20 mg [Pepcid 20 MG] Med 01/02/22 22:00 Active 40 mg PO HS Fluoxetine HCl 20 mg [Prozac 20 MG] Med 01/02/22 22:00 Active 20 mg PO QHS Furosemide 40 mg/4 ml [Lasix 40 MG/4 ML] Med 01/03/22 11:00 Discontinued 40 mg IV STAT ONE Levothyroxine Sodium 50 Mcg [Synthroid 50 Mcg] Med 01/03/22 10:00 Active 50 mcg PO DAILY Loratadine 10 mg [Claritin 10 mg] Med 01/03/22 10:00 Active 10 mg PO DAILY Midodrine HCl [Proamatine] Med 01/02/22 22:00 Discontinued 5 mg PO ONCE ONE Midodrine HCl [Proamatine] Med 01/04/22 10:00 Active 5 mg PO TuTh@1000,1500,2200 Ondansetron ODT 4 MG [Zofran Odt 4 mg] Med 01/02/22 18:33 Active 4 mg PO Q4H PRN PRN PANTOPRAZOLE 40 mg Tablet [Protonix 40MG Tablet] Med 01/03/22 10:00 Active 40 mg PO DAILY Promethazine HCl 25 mg [Phenergan 25 mg] Med 01/03/22 14:54 Discontinued 12.5 mg PO STAT ONE PT Eval & Treat ( Order) ONCE PT 01/03/22 12:15 Completed BiPap/CPAP ROUTINE RT 01/02/22 21:00 Active Oxygen NASAL CANNULA 2 lpm RT 01/02/22 16:52 Active Pulse Oximetry .spot check RT 01/02/22 17:23 Active RT Screen per Nursing Assess ONCE RT 01/02/22 18:55 Completed Respiratory Therapy Assessment DAILY RT 01/03/22 07:42 Active Patient Care Notes (Last 24 hours) 01/03/22 12:44 Case Management Note by Pina Pablo PATIENT'S DAUGHTER IN LAW HERE, SHE DOES MOST OF CARE FOR PATIENT. SHE STATES S HE THINKS PATIENT WOULD BENEFIT FROM REHAB STAY, SHE DOES NOT THINK IT IS SAFE FOR HER TO GO HOME AT THIS TIME. PATIENT IS AGREEABLE TO THAT. DIL REQUESTS [facility] SHE HAS BEEN THERE BEFORE. PHONED ,THEY STATE FAX CLINICAL AND THEY WILL REVIEW AND PHONE BACK, BUT THEY DO ANTICIPATE BEING ABLE TO ACCEPT PATIENT. FAXED CLINICAL AND FACESHEET. Initialized on 01/03/22 12:44 - END OF NOTE 01/03/22 12:21 Nursing Note by Alec Be DR ROUNDED ON PT, HE SPOKE WITH PT AND FAMILY, WILL KEEP PT ONE MORE DAY AND PLAN TO DC IN AM Initialized on 01/03/22 12:21 - END OF NOTE 01/03/22 10:13 Nursing Note by Alec Be DR CALLED, REPORTED LABS AND PT STATUS. HE STATED GIVE PT ANOTHER DOSE OF IV LASIX 40MG, PT CAN DC HOME IF SHES FEELING OK AND F/U AT DIALYSIS SATURDAY Initialized on 01/03/22 10:13 - END OF NOTE 01/03/22 09:20 (created 01/03/22 09:24) Nursing Note by Sofiya Erazo CALLED CONSULT TO DR. YIP'S OFFICE ([facility]) Initialized on 01/03/22 09:24 - END OF NOTE Code(s): I50.9 - HEART FAILURE, UNSPECIFIED (2) ESRD (end stage renal disease) on dialysis Current Visit: Yes Status: Chronic Code(s): N18.6 - END STAGE RENAL DISEASE; Z99.2 - DEPENDENCE ON RENAL DIALYSIS (3) Shortness of breath Current Visit: Yes Status: Acute Code(s): R06.02 - SHORTNESS OF BREATH
[2022-01-03] MEDS: Pepcid 20 MG PO SCH (20:09)
[2022-01-03] MEDS: Prozac 20 MG PO SCH (20:09)
[2022-01-03] MEDS: BENADRYL 25 MG CAPSULE PO PRN (20:09)
[2022-01-04] MEDS: Valium 5 MG PO ONE ×3 (01:09→01:45)
[2022-01-04] MEDS: VENTOLIN COMMON CANISTER IH SCH ×4 (01:33→17:21)
[2022-01-04 07:15] LABS: Absolute Neutrophil Ct (ANC) 3.33 x10^3/uL (1.4-6.9); Basophil (Absolute #) 0.07 x10^3/uL (0-0.4); Eosinophil % 2.9 % (0.00-5.0); Eosinophil (Absolute #) 0.17 x10^3/uL (0-0.5); Hematocrit 32.1 % (35-47); Hemoglobin 10.3 g/dL (12.0-16.0); Lymphocytes % 25.8 % (24.0-44.0); Mean Cell Volume 100.3 fL (78-100); Mean Corpuscular Hemoglobin 32.2 pg (26-32); Mean Corpuscular Hgb Concent. 32.1 g/dL (32-36); Mean Platelet Volume 9.4 fL (7.5-11.0); Monocyte (Absolute #) 0.73 x10^3/uL (0.0-1.3); Monocytes % 12.6 % (0.0-12.0); Neutrophil % 57.3 % (36.0-66.0); Platelet Count 179 x10^3/uL (150-450); Red Cell Distribution Width 15.4 % (11.5-14.0); White Blood Count 5.8 x10^3/uL (4.0-10.5)
[2022-01-04 08:27] LABS: ALBUMIN 2.9 g/dL (3.5-5.0); ANION GAP 9.2 MEQ/L (5-15); Calcium 8.7 mg/dL (8.4-10.2); Creatinine 1 2.99 mg/dL (0.52-1.04); PHOSPHOROUS 4.3 mg/dL (2.5-4.5); Potassium 3.5 mmol/L (3.5-5.1)
[2022-01-04] MEDS: PROAMATINE PO SCH (15:26)
[2022-01-04] MEDS: ELIQUIS 2.5 MG TABLET PO SCH (16:07)
[2022-01-04 16:47] VITALS: BP 120/68
[2022-01-04 17:23] VITALS: PULSE 68; O2SAT 94
--- NOTE | 2022-01-04 17:29 | PCM.DS ---
Discharge Summary Date of Admission: 01/02/22 16:38 Admitting Physician: AFIA PRINCE Consults: Consults on Case 01/03/22 08:00 Consult Nephrology ROUTINE Primary Care Provider: GENOVEVA CASTELLANOS Allergies Allergies codeine Allergy (Unknown, Verified 10/14/21 17:29) erythromycin base Allergy (Unknown, Verified 10/14/21 17:29) latex Allergy (Unknown, Verified 10/14/21 17:29) Sulfa (Sulfonamide Antibiotics) Allergy (Unknown, Verified 10/14/21 17:29) Hospital Summary - Hospital Course Hospital Course: Chief Complaint Diagnosis shortness of breath and altered mental status for 4-6 hours Allergies Allergy/AdvReac Type Severity Reaction Status Date / Time codeine Allergy Unknown Verified 10/14/21 17:29 erythromycin base Allergy Unknown Verified 10/14/21 17:29 latex Allergy Unknown Verified 10/14/21 17:29 Sulfa (Sulfonamide Allergy Unknown Verified 10/14/21 17:29 Antibiotics) Vital Signs (Last 24 hours) Temp Pulse Resp BP BP Pulse Ox 01/04/22 17:22 68 16 94 L 01/04/22 16:00 97.5 F 72 18 120/68 93 L 01/04/22 12:45 70 16 97 01/04/22 11:28 97.1 F 72 18 127/65 91 L 01/04/22 07:30 97.8 F 81 18 139/65 98 01/04/22 06:15 75 18 92 L 01/04/22 03:46 98.2 F 81 21 100/51 100/51 96 01/04/22 01:33 80 18 93 L 01/03/22 23:34 98.2 F 83 18 109/51 97 01/03/22 20:00 98.9 F 75 20 130/60 93 L Home Medications Medication Instructions Recorded Confirmed Last Taken Type Albuterol Sulfate [Albuterol 2 puff IH Q6H 01/02/22 01/02/22 Unknown History Sulfate Hfa] Amiodarone HCl 200 mg 200 mg PO DAILY 01/02/22 01/02/22 Unknown History [Cordarone 200 MG] Benzonatate 200 mg PO BID 01/02/22 01/02/22 Unknown History Loratadine 10 mg [Claritin 10 10 mg PO DAILY 01/02/22 01/02/22 Unknown History mg] Midodrine HCl [Proamatine] 5 mg PO TID 01/02/22 01/02/22 Unknown History Omeprazole 40 mg PO DAILY 01/02/22 01/02/22 Unknown History Ondansetron ODT 4 MG [Zofran 4 mg PO Q4HPRN PRN 01/02/22 01/02/22 Unknown History Odt 4 mg] diphenhydrAMINE HCL [Benadryl] 50 mg PO DAILY PRN PRN 01/02/22 01/02/22 Unknown History Current Medications Generic Name Dose Route Start Last Admin Trade Name Freq PRN Reason Stop Dose Admin Acetaminophen 650 mg 01/02/22 20:06 01/03/22 03:29 Acetaminophen 325 Mg Tablet PO 02/01/22 20:05 650 mg Q4H PRN PRN Administration PAIN AND/OR FEVER Albuterol Sulfate 2 puff 01/03/22 07:00 01/04/22 17:21 Albuterol Common Canister Inhaler IH 02/02/22 06:59 2 puff Q6HRT ALISHA Administration Allopurinol 100 mg 01/03/22 10:00 01/03/22 11:55 Allopurinol 100 Mg Tablet PO 02/02/22 09:59 100 mg DAILY ALISHA Administration Amiodarone HCl 200 mg 01/03/22 10:00 01/03/22 11:55 Amiodarone Hcl 200 Mg Tab PO 02/02/22 09:59 200 mg DAILY ALISHA Administration Apixaban 2.5 mg 01/02/22 22:00 01/04/22 16:07 Apixaban 2.5 Mg Tablet PO 02/01/22 21:59 Not Given BID ALISHA Benzonatate 200 mg 01/02/22 20:07 01/03/22 11:56 Benzonatate 100 Mg Capsule PO 02/01/22 20:06 200 mg BIDPRN PRN Administration COUGH Diphenhydramine HCl 50 mg 01/02/22 20:08 01/03/22 20:09 Diphenhydramine Hcl 25 Mg Capsule PO 02/01/22 20:07 50 mg HS PRN PRN Administration ALLERGIES Ergocalciferol 50,000 unit 01/07/22 10:00 Ergocalciferol (Vitamin D2) 50,000 Unit Capsule PO 02/06/22 09:59 Sol@1000 [facility] Famotidine 40 mg 01/02/22 22:00 01/03/22 20:09 Famotidine 20 Mg Tablet PO 02/01/22 21:59 40 mg HS ALISHA Administration Fluoxetine HCl 20 mg 01/02/22 22:00 01/03/22 20:09 Fluoxetine Hcl 20 Mg Cap PO 02/01/22 21:59 20 mg QHS ALISHA Administration Levothyroxine Sodium 50 mcg 01/03/22 10:00 01/03/22 11:55 Levothyroxine Sodium 50 Mcg Tablet PO 02/02/22 09:59 50 mcg DAILY ALISHA Administration Loratadine 10 mg 01/03/22 10:00 01/03/22 11:55 Loratadine 10 Mg Tablet PO 02/02/22 09:59 10 mg DAILY ALISHA Administration Midodrine 5 mg 01/04/22 10:00 01/04/22 15:26 Midodrine Hcl 5 Mg Tablet PO 02/03/22 09:59 Not Given TuTh@1000,1500,2200 [facility] Ondansetron HCl 4 mg 01/02/22 18:33 01/03/22 14:24 Zofran 4 Mg/Udtablet Orally Disintegrating PO 02/01/22 18:32 4 mg Q4H PRN PRN Administration NAUSEA/VOMITING Pantoprazole Sodium 40 mg 01/03/22 10:00 01/03/22 11:56 Protonix (Pantoprazole) 40 Mg Tablet PO 02/02/22 09:59 40 mg DAILY ALISHA Administration Discontinued Medications Generic Name Dose Route Start Last Admin Trade Name Nikhil PRN Reason Stop Dose Admin Diazepam 5 mg 01/03/22 01:50 01/03/22 01:59 Diazepam 5 Mg Tablet PO 01/03/22 01:51 5 mg ONCE ONE Administration Diazepam 5 mg 01/04/22 01:04 01/04/22 01:45 Diazepam 5 Mg Tablet PO 01/04/22 01:05 Not Given STAT ONE Furosemide 40 mg 01/02/22 15:17 01/02/22 15:23 Furosemide 40 Mg/4 Ml Vial IV 01/02/22 15:18 40 mg STAT ONE Administration Furosemide Confirm 01/02/22 15:22 Furosemide 40 Mg/4 Ml Vial Administered 01/02/22 15:23 Dose 40 mg .ROUTE .STK-MED ONE Furosemide 40 mg 01/03/22 11:00 01/03/22 11:50 Furosemide 40 Mg/4 Ml Vial IV 01/03/22 11:01 40 mg STAT ONE Administration Lidocaine HCl Confirm 01/02/22 15:44 Lidocaine - Mpf 2% 5 Ml Vial Administered 01/02/22 15:45 Dose 5 ml .ROUTE .STK-MED ONE Midodrine 5 mg 01/02/22 22:00 01/02/22 23:14 Midodrine Hcl 5 Mg Tablet PO 01/02/22 22:01 5 mg ONCE ONE Administration Promethazine HCl 12.5 mg 01/03/22 14:54 01/03/22 15:00 Promethazine Hcl 25 Mg Tablet PO 01/03/22 14:55 12.5 mg STAT ONE Administration Intake & Output (Last 24 hours) 01/02/22 01/03/22 01/04/22 01/05/22 11:59 11:59 11:59 11:59 Intake Total 440 460 60 Output Total 250 500 Balance 190 -40 60 Weight 123.3 kg 123.2 kg Microbiology Results (Last 24 hours) 01/02/22 14:13 Urine, Catheterized Urine Culture - Final <10K NORMAL SKIN LIZ PROBABLE SKIN CONTAMINANT Laboratory Results (Last 24 hours) 01/04/22 01/04/22 07:11 07:11 WBC 5.8 RBC 3.20 L Hgb 10.3 L Hct 32.1 L MCV 100.3 H MCH 32.2 H MCHC 32.1 RDW 15.4 H Plt Count 179 MPV 9.4 Gran % 57.3 Immature Gran % (Auto) 0.2 Nucleat RBC Rel Count 0.0 Eos # (Auto) 0.17 Immature Gran # (Auto) 0.01 Absolute Lymphs (auto) 1.50 Absolute Monos (auto) 0.73 Absolute Nucleated RBC 0.00 Lymphocytes % 25.8 Monocytes % 12.6 H Eosinophils % 2.9 Basophils % 1.2 Absolute Granulocytes 3.33 Basophils # 0.07 Sodium 140 Potassium 3.5 Chloride 106 Carbon Dioxide 29 Anion Gap 9.2 BUN 39 H Creatinine 2.99 H Estimated GFR 16.0 Glucose 93 Calcium 8.7 Phosphorus 4.3 Albumin 2.9 L Orders (Last 24 hours) Category Date Time Status BMP/RENAL PROFILE Routine Lab 01/04/22 07:11 Completed CBC W DIFF Routine Lab 01/04/22 07:11 Completed Diazepam 5 mg [Valium 5 MG] Med 01/04/22 01:04 Discontinued 5 mg PO STAT ONE Ergocalciferol (Vitamin D2) [Vitamin D2] Med 01/07/22 10:00 Active 50,000 unit PO Sol@1000 Midodrine HCl [Proamatine] Med 01/04/22 10:00 Active 5 mg PO TuTh@1000,1500,2200 Patient Care Notes (Last 24 hours) 01/04/22 13:41 Nursing Note by Bernadette Lainez Contacted [facility] center to check on the status. Spoke with Art who stated that they have accepted the patient under Dr Worthington. They are still currently waiting on a bed at this time, they are anticipating multiple discharges for today. Will call back once there is a bed assigned to the patient. Initialized on 01/04/22 13:41 - END OF NOTE 01/04/22 13:25 Physical Therapy Note by Ciro(L#[id number])Tania P.T. HELD THIS DATE PT. IS ALERT TO NAME ONLY AND NOT FEELING WELL. IS AWAITING A BED AT [facility] SO SHE CAN GET DIALYSIS. WILL MONITOR. Initialized on 01/04/22 13:25 - END OF NOTE 01/04/22 12:07 Case Management Note by Dayana Mijares UPDATED THAT WE ARE TRYING TO TRANSFER PATIENT TO [facility] FOR DIALYSIS Initialized on 01/04/22 12:07 - END OF NOTE 01/04/22 09:44 Nursing Note by Bernadette Lainez Updated Daughter in law on possible transfer to [facility] and we are waiting for acceptance and bed at this time. Notified her that is can take some time for patient to receive a bed at times. Will continue to update the patient's family once we are informed of acceptance and bed placement. Initialized on 01/04/22 09:44 - END OF NOTE 01/04/22 09:12 Nursing Note by Alec Be UPDATED DR PRINCE ON PT STATUS, LABS WORSEN, CONFUSION WORSENING. STATES TO [facility] NEPHROLOGY AND TX PT TO [facility]. [address] DUKE'S OFFICE REPORTED PT STATUS, 0910 HE STATED TO CALL TRANSFER CENTER AND GET BED WITH HOSPITALIST. TRANSFER CENTER CALLED PER HS Initialized on 01/04/22 09:12 - END OF NOTE 01/04/22 09:11 Nursing Note by Bernadette Lainez Contacted [facility] per Dr Prince due to declining kidney function. Patient has worsening AMS. She stated that she would call us back. Verbalized understanding. Initialized on 01/04/22 09:11 - END OF NOTE 01/04/22 08:53 Case Management Note by Dayana Mijares [facility] REPORTS THEY DID NOT GET A FULL REFERRAL PACKET- REFERRAL PACKET REFAXED AT THIS TIME Initialized on 01/04/22 08:53 - END OF NOTE 01/04/22 02:37 Nursing Note by Bryson Simon 0215 Bilateral eyelids are closed respirations unlabored. Bed alarms reain on. Initialized on 01/04/22 02:37 - END OF NOTE 01/04/22 01:21 Nursing Note by Bryson Simon Patient is restless confused to time, place and situation pulling at her mcintyre catheter, iV ,and dialysis port. Dr. Medel notified and gave Valium 5mg po . Initialized on 01/04/22 01:21 - END OF NOTE - Vitals & Intake/Output Vital Signs: Vital Signs Temperature 97.5 F 01/04/22 16:00 Pulse Rate 68 01/04/22 17:22 Respiratory Rate 16 01/04/22 17:22 Blood Pressure 120/68 01/04/22 16:00 O2 Sat by Pulse Oximetry 94 L 01/04/22 17:22 Intake & Output: Intake & Output 01/02/22 01/03/22 01/04/22 01/05/22 11:59 11:59 11:59 11:59 Intake Total 440 460 60 Output Total 250 500 Balance 190 -40 60 Weight 123.3 kg 123.2 kg - Lab Result Diagrams: 01/04/22 07:11 01/04/22 07:11 Lab Results-Last 24 Hrs: Lab Results-Last 24 Hours 01/04/22 01/04/22 Range/Units 07:11 07:11 WBC 5.8 (4.0-10.5) x10^3/uL RBC 3.20 L (4.1-5.4) x10^6/uL Hgb 10.3 L (12.0-16.0) g/dL Hct 32.1 L (35-47) % MCV 100.3 H (78-100) fL MCH 32.2 H (26-32) pg MCHC 32.1 (32-36) g/dL RDW 15.4 H (11.5-14.0) % Plt Count 179 (150-450) x10^3/uL MPV 9.4 (7.5-11.0) fL Gran % 57.3 (36.0-66.0) % Immature Gran % (Auto) 0.2 (0.00-0.4) % Nucleat RBC Rel Count 0.0 (0.00-0.1) % Eos # (Auto) 0.17 (0-0.5) x10^3/uL Immature Gran # (Auto) 0.01 (0.00-0.03) x10^3u/L Absolute Lymphs (auto) 1.50 (1.0-4.6) x10^3/uL Absolute Monos (auto) 0.73 (0.0-1.3) x10^3/uL Absolute Nucleated RBC 0.00 (0.00-0.01) x10^3u/L Lymphocytes % 25.8 (24.0-44.0) % Monocytes % 12.6 H (0.0-12.0) % Eosinophils % 2.9 (0.00-5.0) % Basophils % 1.2 (0.0-0.4) % Absolute Granulocytes 3.33 (1.4-6.9) x10^3/uL Basophils # 0.07 (0-0.4) x10^3/uL Sodium 140 (137-145) mmol/L Potassium 3.5 (3.5-5.1) mmol/L Chloride 106 (98-107) mmol/L Carbon Dioxide 29 (22-30) mmol/L Anion Gap 9.2 (5-15) MEQ/L BUN 39 H (7-17) mg/dL Creatinine 2.99 H (0.52-1.04) mg/dL Estimated GFR 16.0 ML/MIN Glucose 93 (74-106) mg/dL Calcium 8.7 (8.4-10.2) mg/dL Phosphorus 4.3 (2.5-4.5) mg/dL Albumin 2.9 L (3.5-5.0) g/dL Micro Results-Entire Visit: Microbiology 01/02/22 14:13 Urine Culture - Final Urine, Catheterized <10K NORMAL SKIN LIZ PROBABLE SKIN CONTAMINANT - Procedures and Test Procedures and Tests throughout Hospitalization: Therapy Orders & Screens 01/02/22 16:52 Oxygen NASAL CANNULA 2 lpm Comment: Diagnosis: CHF 01/02/22 18:55 RT Screen per Nursing Assess ONCE Comment: Protocol Order Physician Instructions: Greater than 3 points order RT Admission Screen Reason For Exam: Triggered on Admission Diagnosis: CHF Diagnosis: CHF Pneumonia: No Home O2: No Asthma: No CHF: Yes Home CPAP/BIPAP: Yes Home Nebs/MDI: Yes Total Points: 13 01/02/22 21:00 BiPap/CPAP ROUTINE Comment: PER HOME SETTINGS Diagnosis: CHF 01/03/22 07:42 Respiratory Therapy Assessment DAILY Comment: Diagnosis: shortness of breath and altered mental status for 4-6 hours 01/03/22 12:15 PT Eval & Treat (MD Order) ONCE Reason for Eval:: rehab stay placement Diagnosis: shortness of breath and altered mental status for 4-6 hours Discharge Exam General Appearance: alert, lethargy Neurologic Exam: alert, oriented x 3, cooperative, normal mood/affect, nml cerebellar function, sensation nml, No motor deficits Eye Exam: PERRL, EOMI, eyes nml inspection Ears, Nose, Throat Exam: normal ENT inspection, pharynx normal, moist mucous membranes Neck Exam: normal inspection, non-tender, supple, full range of motion Respiratory Exam: normal breath sounds, lungs clear, No respiratory distress Cardiovascular Exam: regular rate/rhythm, normal heart sounds Gastrointestinal/Abdomen Exam: soft, No tenderness, No mass Pelvic Exam: deferred Rectal Exam: deferred Back Exam: normal inspection, normal range of motion, No CVA tenderness, No vertebral tenderness Extremity Exam: normal inspection, normal range of motion Skin Exam: normal color, warm, dry Final Diagnosis/Problem List - Final Discharge Diagnosis/Problem (1) Congestive heart failure Current Visit: Yes Status: Acute Code(s): I50.9 - HEART FAILURE, UNSPECIFIED (2) ESRD (end stage renal disease) on dialysis Current Visit: Yes Status: Chronic Code(s): N18.6 - END STAGE RENAL DISEASE; Z99.2 - DEPENDENCE ON RENAL DIALYSIS (3) Shortness of breath Current Visit: Yes Status: Resolved Code(s): R06.02 - SHORTNESS OF BREATH - Discharge Discharge Date: 01/04/22 Disposition: DC TO [facility] Condition: Stable Prescriptions: No Action Allopurinol 100 mg [Zyloprim 100 mg] 100 mg PO DAILY Fluoxetine HCl 20 mg [Prozac 20 MG] 20 mg PO HS Famotidine 40 mg PO QHS Apixaban [Eliquis 2.5 mg Tablet] 2.5 mg PO BID Levothyroxine Sodium 50 Mcg [Synthroid 50 Mcg] 50 mcg PO DAILY Ergocalciferol (Vitamin D2) [Vitamin D2] 50,000 unit PO Q7D Acetaminophen 325 mg [Tylenol 325 mg] 650 mg PO Q4H PRN PRN PRN Reason: Pain And/Or Fever Omeprazole 40 mg PO DAILY Ondansetron ODT 4 MG [Zofran Odt 4 mg] 4 mg PO Q4HPRN PRN PRN Reason: Nausea Midodrine HCl [Proamatine] 5 mg PO TID Loratadine 10 mg [Claritin 10 mg] 10 mg PO DAILY diphenhydrAMINE HCL [Benadryl] 50 mg PO DAILY PRN PRN PRN Reason: ALLERGY Benzonatate 200 mg PO BID Amiodarone HCl 200 mg [Cordarone 200 MG] 200 mg PO DAILY Albuterol Sulfate [Albuterol Sulfate Hfa] 2 puff IH Q6H Follow up with: GENOVEVA CASTELLANOS [Primary Care Provider] -
[2022-01-04] MEDS: Protonix 40MG Tablet PO SCH (17:42)
[2022-01-04] MEDS: ZYLOPRIM 100 MG PO SCH (17:42)
[2022-01-04] MEDS: SYNTHROID 50 MCG PO SCH (17:42)
[2022-01-04] MEDS: CLARITIN 10 MG PO SCH (17:42)
[2022-01-04] MEDS: Cordarone 200 MG PO SCH (17:42)
[2022-01-07] MEDS ORDERED: VITAMIN D2 PO SCH (10:00)
== END 2022-01-04 18:08 | disposition home or self-care (01) ==
LOC: ED 13:37 → MED SURG 16:38
PROVIDERS: ADMIT General Practice; ATTEND General Practice
DX: I11.0 Hypertensive heart disease with heart failure (principal); I50.9 Heart failure, unspecified; N18.6 End stage renal disease; Z99.2 Dependence on renal dialysis; R06.02 Shortness of breath; R41.82 Altered mental status, unspecified; I25.10 Atherosclerotic heart disease of native coronary artery without angina pectoris; I25.2 Old myocardial infarction; Z93.3 Colostomy status; Z20.828 Contact with and (suspected) exposure to other viral communicable diseases; Z79.01 Long term (current) use of anticoagulants; Z79.899 Other long term (current) drug therapy
CPT/HCPCS: 0241U; 36410; 36415; 51702; 70450; 71045; 74176; 76942; 80048; 80053; 81015; 82040; 82947; 83880; 84100; 84134; 84484; 85025; 85027; 87086; 93005; 93041; 93268; 94640; 94660; 94760; 96374; 97161; 99100; 99285; G0378; G0480; 80307; J1940; Q0162; A9270-GY

== ENCOUNTER 2022-01-21 05:19 | Emergency (ER) | payer MEDICARE ==
[2022-01-21 05:47] VITALS: BP 171/65
[2022-01-21] MEDS ORDERED: Zofran 4 MG/2 ML VIAL IV ONE (05:53)
[2022-01-21 06:13] LABS: Hematocrit 35.8 % (35-47); Hemoglobin 11.2 g/dL (12.0-16.0); Mean Cell Volume 101.1 fL (78-100); Mean Corpuscular Hemoglobin 31.6 pg (26-32); Mean Corpuscular Hgb Concent. 31.3 g/dL (32-36); Mean Platelet Volume 9.5 fL (7.5-11.0); Platelet Count 195 x10^3/uL (150-450); Red Blood Count 3.54 x10^6/uL (4.1-5.4); Red Cell Distribution Width 13.8 % (11.5-14.0); White Blood Count 5.6 x10^3/uL (4.0-10.5)
[2022-01-21 06:31] LABS: ALBUMIN 3.4 g/dL (3.5-5.0); ANION GAP 14.2 MEQ/L (5-15); BILIRUBIN,TOTAL 0.9 mg/dL (0.2-1.3); Calcium 9.2 mg/dL (8.4-10.2); Creatinine 1 4.47 mg/dL (0.52-1.04); Potassium 3.7 mmol/L (3.5-5.1); Total Protein 6.7 g/dL (6.3-8.2)
--- NOTE | 2022-01-21 06:42 | ERPHSYRPT ---
- History of Present Illness Historian: patient, family Exam Limitations: no limitations Patient Subjective Stated Complaint: pt states she has been vomiting for the last 24 hours. states she has been feeling unwell since dialysis on and didnt go to dialysis yesterday d/t vomiting. was just dc'd from Triage Nursing Assessment: pt alert and oriented, answers questions approp. pt back to room per wheelchair and transfers to [facility] with assist of 1. respirations nonlabored with lungs cta. abd soft and nontender with hypo bowel sounds. colostomy to lt abd with moderate amount of soft brwon stool. small amt of flatus present. Timing/Duration: day(s) (2), gradual onset, worse Quality: aching Abdominal Pain Onset Location: generalized abdomen Severity of Pain-Max: mild Severity of Pain-Current: none Modifying Factors: Worsens With: vomiting Associated Symptoms: nausea, vomiting Hx Tetanus, Diphtheria Vaccination/Date Given: No Hx Influenza Vaccination/Date Given: Yes Hx Pneumococcal Vaccination/Date Given: Yes Immunizations Up to Date: No <BRIDGETTE HARPER - Last Filed: 01/21/22 06:43> <AFIA PRINCE - Last Filed: 01/21/22 07:57> - History of Present Illness Time Seen by Provider: 01/21/22 06:04 Physician History: 82 years old female with a history of hypertension, hyperlipidemia, end-stage renal disease is on dialysis 3 times a week, atrial fibrillation on Eliquis, permanent colostomy presented to the ER with 2 days history of nausea and vomiting with some abdominal discomfort. Reports multiple Depoe episodes of nonprojectile, nonbilious vomiting without hematemesis. Denies any increased ostomy output. No fever or chills reported but feels weak fatigued and tired. She was not feeling well yesterday and missed her dialysis. (BRIDGETTE HARPER) Allergies/Adverse Reactions: codeine Allergy (Unknown, Verified 10/14/21 17:29) erythromycin base Allergy (Unknown, Verified 10/14/21 17:29) latex Allergy (Unknown, Verified 10/14/21 17:29) Sulfa (Sulfonamide Antibiotics) Allergy (Unknown, Verified 10/14/21 17:29) Home Medications: Allopurinol 100 mg [Zyloprim 100 mg] 100 mg PO DAILY 12/03/17 [History] Apixaban [Eliquis 2.5 mg Tablet] 2.5 mg PO BID 08/10/20 [History] Famotidine 40 mg PO QHS 08/10/20 [History] Fluoxetine HCl 20 mg [Prozac 20 MG] 20 mg PO HS 08/10/20 [History] Ergocalciferol (Vitamin D2) [Vitamin D2] 50,000 unit PO Q7D 08/16/21 [History] Levothyroxine Sodium 50 Mcg [Synthroid 50 Mcg] 50 mcg PO DAILY 08/16/21 [History] Albuterol Sulfate [Albuterol Sulfate Hfa] 2 puff IH Q6H 01/02/22 [History] Amiodarone HCl 200 mg [Cordarone 200 MG] 200 mg PO DAILY 01/02/22 [History] Loratadine 10 mg [Claritin 10 mg] 10 mg PO DAILY 01/02/22 [History] Midodrine HCl [Proamatine] 5 mg PO TID 01/02/22 [History] Omeprazole 40 mg PO DAILY 01/02/22 [History] Ondansetron ODT 4 MG [Zofran Odt 4 mg] 4 mg PO Q4HPRN PRN 01/02/22 [History] Docusate Sodium [Colace] 100 mg PO PRN 01/21/22 [History] Travel Risk - International Travel Have you traveled outside of the country in past 3 weeks: No - Coronavirus Screening Are you exhibiting any of the following symptoms?: Yes Symptoms: Vomiting/Diarrhea, Headaches/Body Aches/Fatigue Close contact with a COVID-19 positive Pt in past 14-21 Days: No - Vaccine Status Have you recieved a Covid-19 vaccination: Yes Drawing Box Tender: Moderna - Vaccination Dates Date of 2cond Vaccination (if applicable): 06/16/20 Comment: 08/11/21 2nd booster <BRIDGETTE HARPER - Last Filed: 01/21/22 06:43> - Review of Systems Constitutional: Fatigue, Weakness Eyes: No Symptoms Ears, Nose, & Throat: No Symptoms Respiratory: No Symptoms Cardiac: No Symptoms Abdominal/Gastrointestinal: Nausea, Vomiting, No Abdominal Pain Genitourinary Symptoms: No Symptoms Musculoskeletal: Arthralgias Skin: No Symptoms Neurological: No Symptoms Psychological: No Symptoms Endocrine: No Symptoms Hematologic/Lymphatic: No Symptoms Immunological/Allergic: No Symptoms <KARI HARPERMIR Last Filed: 01/21/22 06:43> - Past Medical History Pertinent Past Medical History: Yes Neurological History: No Pertinent History ENT History: Cataracts Cardiac History: Arrhythmia, Congestive Heart Failure, Coronary Artery Disease, High Cholesterol, Hypertension, Myocardial Infarction ([place]) Respiratory History: Sleep Apnea Endocrine Medical History: Other Musculoskeletal History: Osteoarthritis GI Medical History: Gallbladder Disease History: Renal Disease Psycho-Social History: No Pertinent History Female Reproductive Disorders: No Pertinent History Other Medical History: STAGE 3 CKD D/T [facility] USE OF ARTHRITIS MEDICINE, perforated bowel - Past Surgical History Past Surgical History: Yes Neuro Surgical History: No Pertinent History Cardiac: Cardiac Catheterization, Cardiac Stent Respiratory: No Pertinent History Gastrointestinal: Cholecystectomy, Colon Resection, Other Genitourinary: No Pertinent History Musculoskeletal: Other Female Surgical History: No Pertinent History Other Surgical History: Sinus Surgery, Left Heel Surgery-hematoma, COLOSTOMY, PORT PLACEMENT, FISTULA FOR DIALYSIS - Social History Smoking Status: Never smoker Exposure to second hand smoke: No Drug Use: none Patient Lives Alone: Yes (assisted living at [facility]) Significant Family History: no pertinent family hx <BRIDGETTE HARPER Last Filed: 01/21/22 06:43> - Physical Exam General Appearance: no apparent distress, alert Eye Exam: PERRL/EOMI Ears, Nose, Throat Exam: normal ENT inspection Neck Exam: normal inspection, non-tender, full range of motion Respiratory Exam: normal breath sounds, lungs clear Cardiovascular Exam: regular rate/rhythm, normal heart sounds Gastrointestinal/Abdomen Exam: soft, normal bowel sounds, tenderness, other (Ostomy well in place) Back Exam: normal inspection, normal range of motion Extremity Exam: normal inspection, pelvis stable Neurologic Exam: alert, oriented x 3, 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, 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 Skin Exam: normal color SpO2 Interpretation: normal SpO2: 97 O2 Delivery: Room Air <MEREDITHBRIDGETTE - Last Filed: 01/21/22 06:43> - Nursing Vital Signs Nursing Vital Signs: Initial Vital Signs Temperature 97.4 F 01/21/22 05:30 Pulse Rate 81 01/21/22 05:30 Respiratory Rate 18 01/21/22 05:30 Blood Pressure 171/65 01/21/22 05:30 O2 Sat by Pulse Oximetry 97 01/21/22 05:30 Pain Scale Pain Intensity 0 - CT Exams Abdomen/Pelvis CT Interpretation: Tele-radiologist Report <NIKI,AFIA - Last Filed: 01/21/22 07:57> Ordered Tests: Active Orders 24 hr Category Date Time Status ABDOMEN AND PELVIS W/0 CONTRAS [CT] Stat Exams 01/21/22 05:52 Taken BLOOD CULTURE Stat Lab 01/21/22 06:05 Received BNP [NT PRO BNP] Stat Lab 01/21/22 06:05 Completed CBC Stat Lab 01/21/22 06:05 Completed CMP Stat Lab 01/21/22 06:05 Completed LIPASE Stat Lab 01/21/22 06:05 Completed Lactic Acid Stat Lab 01/21/22 06:08 Completed TROPONIN Q4H Lab 01/21/22 06:05 Completed TROPONIN Q4H Lab 01/21/22 10:45 Ordered TROPONIN Q4H Lab 01/21/22 14:45 Ordered UA W/RFX CULTURE Stat Lab 01/21/22 Ordered Medication Summary Discontinued Medications Generic Name Dose Route Start Last Admin Trade Name Nikhil PRN Reason Stop Dose Admin Ondansetron HCl 4 mg 01/21/22 05:53 01/21/22 07:44 Ondansetron Hcl 4 Mg/2 Ml Vial IV 01/21/22 05:54 4 mg STAT ONE Administration Ondansetron HCl Confirm 01/21/22 06:49 Zofran 4 Mg/Udtablet Orally Disintegrating Administered 01/21/22 06:50 Dose 4 mg .ROUTE .STK-MED ONE Ondansetron HCl 4 mg 01/21/22 06:48 01/21/22 06:56 Zofran 4 Mg/Udtablet Orally Disintegrating PO 01/21/22 06:49 4 mg STAT ONE Administration Ondansetron HCl Confirm 01/21/22 07:41 Ondansetron Hcl 4 Mg/2 Ml Vial Administered 01/21/22 07:42 Dose 4 mg .ROUTE .STK-MED ONE Lab/Rad Data: Laboratory Result Diagrams 01/21/22 06:05 01/21/22 06:05 Laboratory Results 01/21/22 01/21/22 01/21/22 Range/Units 06:08 06:05 06:05 WBC (4.0-10.5) x10^3/uL RBC (4.1-5.4) x10^6/uL Hgb (12.0-16.0) g/dL Hct (35-47) % MCV (78-100) fL MCH (26-32) pg MCHC (32-36) g/dL RDW (11.5-14.0) % Plt Count (150-450) x10^3/uL MPV (7.5-11.0) fL Sodium (137-145) mmol/L Potassium (3.5-5.1) mmol/L Chloride (98-107) mmol/L Carbon Dioxide (22-30) mmol/L Anion Gap (5-15) MEQ/L BUN (7-17) mg/dL Creatinine (0.52-1.04) mg/dL Estimated GFR ML/MIN Glucose (74-106) mg/dL Lactic Acid 3.0 H (0.4-2.0) Calcium (8.4-10.2) mg/dL Total Bilirubin (0.2-1.3) mg/dL AST (14-36) U/L ALT (0-35) U/L Alkaline Phosphatase (38-126) U/L Troponin I 0.029 (0.000-0.034) ng/mL NT-Pro-B Natriuret Pep 1420 (0-1800) pg/mL Serum Total Protein (6.3-8.2) g/dL Albumin (3.5-5.0) g/dL Lipase (23-300) U/L Influenza Type A Ag (NEGATIVE) Influenza Type B Ag (NEGATIVE) RSV (PCR) (Negative) SARS-CoV-2 (PCR) (NEGATIVE) 01/21/22 01/21/22 01/21/22 Range/Units 06:05 06:05 06:05 WBC (4.0-10.5) x10^3/uL RBC (4.1-5.4) x10^6/uL Hgb (12.0-16.0) g/dL Hct (35-47) % MCV (78-100) fL MCH (26-32) pg MCHC (32-36) g/dL RDW (11.5-14.0) % Plt Count (150-450) x10^3/uL MPV (7.5-11.0) fL Sodium 138 (137-145) mmol/L Potassium 3.7 (3.5-5.1) mmol/L Chloride 104 (98-107) mmol/L Carbon Dioxide 24 (22-30) mmol/L Anion Gap 14.2 (5-15) MEQ/L BUN 57 H (7-17) mg/dL Creatinine 4.47 H (0.52-1.04) mg/dL Estimated GFR 10.0 ML/MIN Glucose 135 H (74-106) mg/dL Lactic Acid (0.4-2.0) Calcium 9.2 (8.4-10.2) mg/dL Total Bilirubin 0.90 (0.2-1.3) mg/dL AST 69 H (14-36) U/L ALT 45 H (0-35) U/L Alkaline Phosphatase 104 (38-126) U/L Troponin I (0.000-0.034) ng/mL NT-Pro-B Natriuret Pep (0-1800) pg/mL Serum Total Protein 6.7 (6.3-8.2) g/dL Albumin 3.4 L (3.5-5.0) g/dL Lipase 267 (23-300) U/L Influenza Type A Ag NEGATIVE (NEGATIVE) Influenza Type B Ag NEGATIVE (NEGATIVE) RSV (PCR) NEGATIVE (Negative) SARS-CoV-2 (PCR) NEGATIVE (NEGATIVE) 01/21/22 Range/Units 06:05 WBC 5.6 (4.0-10.5) x10^3/uL RBC 3.54 L (4.1-5.4) x10^6/uL Hgb 11.2 L (12.0-16.0) g/dL Hct 35.8 (35-47) % MCV 101.1 H (78-100) fL MCH 31.6 (26-32) pg MCHC 31.3 L (32-36) g/dL RDW 13.8 (11.5-14.0) % Plt Count 195 (150-450) x10^3/uL MPV 9.5 (7.5-11.0) fL Sodium (137-145) mmol/L Potassium (3.5-5.1) mmol/L Chloride (98-107) mmol/L Carbon Dioxide (22-30) mmol/L Anion Gap (5-15) MEQ/L BUN (7-17) mg/dL Creatinine (0.52-1.04) mg/dL Estimated GFR ML/MIN Glucose (74-106) mg/dL Lactic Acid (0.4-2.0) Calcium (8.4-10.2) mg/dL Total Bilirubin (0.2-1.3) mg/dL AST (14-36) U/L ALT (0-35) U/L Alkaline Phosphatase (38-126) U/L Troponin I (0.000-0.034) ng/mL NT-Pro-B Natriuret Pep (0-1800) pg/mL Serum Total Protein (6.3-8.2) g/dL Albumin (3.5-5.0) g/dL Lipase (23-300) U/L Influenza Type A Ag (NEGATIVE) Influenza Type B Ag (NEGATIVE) RSV (PCR) (Negative) SARS-CoV-2 (PCR) (NEGATIVE) - Progress Progress: improved Counseled pt/family regarding: lab results, diagnosis, need for follow-up, rad results <AFIA PRINCE - Last Filed: 01/21/22 07:57> <BRIDGETTE HARPER - Last Filed: 01/21/22 06:43> - Departure Departure Disposition: Home Critical Care Time: Yes Critical Care Time(excluding separately billable procedures): Critical 30-74 mins <AFIA PRINCE - Last Filed: 01/21/22 07:57> - Departure Clinical Impression: Nausea and vomiting in adult patient, Wheezing Chronic renal insufficiency Qualifiers: Chronic kidney disease stage: stage 5 Qualified Code(s): N18.5 - Chronic kidney disease, stage 5 Condition: Stable Referrals: GENOVEVA CASTELLANOS [Primary Care Provider] - Follow Up with PCP/3 days Instructions: Nausea and Vomiting, Adult (DC) Additional Instructions: Please take Zofran every 4 hours as needed for to alleviate your nausea and vomiting. Please call dialysis center in the morning and see if they can accommodate you for your dialysis tomorrow. Stay on all your other medications same. Discharge/Care Plan HIWOT REESE was seen on 01/21/22 in the Emergency Room. The patient was counseled regarding Diagnosis,Lab results, Imaging studies, need for follow up and when to return to the Emergency Room. Prescriptions given: Discharge Note I have spoken with the patient and/or caregivers. I have explained the patient's condition, diagnosis and treatment plan based on the information available to me at this time. I have answered the patient's and/or caregiver's questions and addressed any concerns. The patient and/or caregivers have as good understanding of the patient's diagnosis, condition and treatment plan as can be expected at this point. The vital signs have been stable. The patient's condition is stable and appropriate for discharge from the emergency department. The patient will pursue further outpatient evaluation with the primary care physician or other designated or consulting physician as outlined in the discharge instructions. The patient and/or caregivers are agreeable to this plan of care and follow-up instructions have been explained in detail. The patient and/or caregivers have received these instruction. The patient/and or caregivers are aware that any significant change in condition or worsening of symptoms should prompt an immediate return to this or the closest emergency department or call 911. HIWOT REESE was seen on 01/21/22 n the Emergency Room. At that time you were treated for an emergent condition, during your visit Laboratory, Radiology and/or other procedures may have been ordered. It is very important that you follow-up with your Primary Care Physician GENOVEVA CASTELLANOS within the next 24-48 hours to review your Emergency Room visit and the final results of testing that was ordered. Some test results such as Urine Cultures, Blood Cultures, and other cultures if ordered will not be finalized for 24-48 hours. If you do not have a Primary Care Provider please call the medical records department at [phone] to obtain a copy of your results or you may sign into our patient portal to obtain these results by visiting us @ [email or web address] and completing the following steps: 1. Click on the Patient Portal link 2. Click the Patient Self Enrollment Link to complete the enrollment form and entering your 3. Once the enrollment form is completed you will receive an email with a temporary ID and password at the email address you provided. 4. Next choose a user name and password. Your user name must be at least 4 characters long and your password must be at least 4 characters long. 5. Choose a security question from the list and provide your answer to the question. If you already have signed into the Health Portal you may access your Health Care Information 01/10 by the following steps: 1. Login to our website @ [email or web address] 2. Enter your original user name and password. FAQS The [facility] Portal is an online tool that contains your Lab Results, Radiology Reports, Visit History, Discharge Instructions and Health Summary Lab and Radiology Results will not be available for 72 hours on the portal. The Portal is a secure site, passwords are encryted and URLs are re-written so they cannot be copied and pasted. You and authorized family members are the only ones who can access your Portal. Also there is a timeout feature that protects your information if you leave the Portal page open. If you have technical difficulty please use the Contact Us link on the page this will allow you to submit any questions you have regarding the Portal or you may contact the Medical Record Department at [phone] ext [phone]. Prescriptions: Ondansetron ODT 4 MG [Zofran Odt 4 mg] 4 mg PO Q4H PRN PRN #20 tablet PRN Reason: Nausea
[2022-01-21] MEDS ORDERED: ZOFRAN ODT 4 MG PO ONE (06:48)
[2022-01-21] MEDS ORDERED: ZOFRAN ODT 4 MG ONE (06:49)
[2022-01-21 06:52] LABS: INFLUENZA A NEGATIVE (NEGATIVE); INFLUENZA B NEGATIVE (NEGATIVE); RESPIRATORY SYNCTIAL VIRUS NEGATIVE (Negative); SARS-CoV-2 Xpert Express NEGATIVE (NEGATIVE)
[2022-01-21] MEDS ORDERED: Zofran 4 MG/2 ML VIAL ONE (07:41)
[2022-01-21 07:51] VITALS: PULSE 70; O2SAT 98
[2022-01-21] MEDS ORDERED: Reglan 10 MG/2 ML ONE (08:22)
[2022-01-21] MEDS ORDERED: PROTONIX 40 MG IV IV ONE (08:22)
[2022-01-21] MEDS: Reglan 10 MG/2 ML IV ONE ×2 (08:23→08:25)
[2022-01-21] MEDS: PROTONIX 40 MG IV IV ONE ×2 (08:23→08:26)
[2022-01-21] MEDS ORDERED: Reglan 10 MG PO ONE (08:26)
[2022-01-21] MEDS ORDERED: Protonix 40MG Tablet ONE (08:28)
[2022-01-21] MEDS ORDERED: Reglan 10 MG ONE ×2 (08:28→08:30)
[2022-01-21] MEDS ORDERED: Protonix 40MG Tablet PO ONE (08:31)
--- NOTE | 2022-01-21 08:44 | XRAY ---
Indication: Nausea and vomiting. Chronic kidney disease III. Multiple contiguous axial images obtained through the abdomen and pelvis without contrast. Comparison: January 02, 2022 Lung bases demonstrates clearing previous effusions with tiny residual. Scattered fibrosis/scarring. Heart not enlarged again with partially visualized dialysis catheter tip at the level of the tricuspid valve. Stable small hiatal hernia. Noncontrasted stomach and bowel loops are nonobstructed. There is again left periumbilical diverting colostomy with herniated small bowel loops without obstruction/incarceration. Stable small supraumbilical ventral hernia with knuckle of small bowel herniating also without obstruction/incarceration. Remaining colon again demonstrates diverticulosis without diverticulitis. Again cholecystectomy. No free fluid/air. Remaining liver, pancreas, spleen, adrenal glands, kidneys, ureters, bladder, and uterus are unremarkable for noncontrast exam. Stable mild scattered aortoiliac calcifications without AAA. Osseous structures intact again with osteopenia, multilevel degenerative spondylosis, minimal grade 1 L4 listhesis, mild double curvature scoliosis, and mild degenerative changes both hips. Impression: Again partially visualized dialysis catheter tip at level of tricuspid valve, small hiatal hernia, left abdomen diverting colostomy with herniated small bowel loop, supraumbilical ventral hernia with herniated knuckle bowel loop, colonic diverticulosis, arteriosclerotic disease, and chronic bony findings. Comment: Preliminary interpretation made by [facility]. No critical discrepancy.
== END 2022-01-21 08:52 | disposition home or self-care (01) ==
LOC: ED 05:19
DX: R11.2 Nausea with vomiting, unspecified (principal); R06.2 Wheezing; I13.2 Hypertensive heart and chronic kidney disease with heart failure and with stage 5 chronic kidney disease, or end stage renal disease; N18.5 Chronic kidney disease, stage 5; I50.9 Heart failure, unspecified; R10.84 Generalized abdominal pain; E78.5 Hyperlipidemia, unspecified; Z93.3 Colostomy status; Z99.2 Dependence on renal dialysis; Z79.01 Long term (current) use of anticoagulants; Z79.899 Other long term (current) drug therapy; Z20.828 Contact with and (suspected) exposure to other viral communicable diseases
CPT/HCPCS: 0241U; 36000; 36415; 74176; 80053; 83605; 83690; 83880; 84484; 85027; 87040; 96374; 99284; 99291; J2405; Q0162; A9270-GY

== ENCOUNTER 2022-01-22 19:04 | Observation (INO) | payer MEDICARE ==
[2022-01-22] MEDS ORDERED: Xopenex 1.25 MG/0.5 ML UD NEBULE IH ONE (19:19)
--- NOTE | 2022-01-22 20:43 | ERPHSYRPT ---
- History of Present Illness Time Seen by Provider: 01/22/22 20:30 Source: patient Exam Limitations: no limitations Patient Subjective Stated Complaint: pt was vomiting and has not felt good for a few days Triage Nursing Assessment: Pt arrived into ER by wheelchair, and was total assist into bed x2. Pt is lethargic, weak, opens eyes to speech but drifts right back off to sleep. Pt is a dialysis pt and had dialysis last but missed Saturday due to not feeling well. She was seen in ER here early Saturday morning for vomiting and discharged home. Pt began to eat dinner Saturday evening and started feeling better. Today, pt went to dialysis at 4:30 pm and began vomiting so they only did the dialysis run for 1 hour. Pt has a dialysis fistula to left lower arm, bruit ausculated and able to feel the "thrill". Pt has temporary dialysis cath to rt upper chest which is what they are currently using for dialysis. Pt has a colostomy draining soft, brown stool. Lungs clear, abd lg, obese with active bs x4 quad, nontender. Pt is snoring on assessment and has no complaints at this time. Pt is afebrile and oxygenating well at 97% on rm air. Pt unable to answer the delirium questions due to sleeping soundly/snoring. Physician History: Patient is a 82-year-old female presents to emergency department via private vehicle. Patient's son at bedside states that patient has been feeling unwell for the past week. Patient missed her dialysis on Saturday. Patient presented to our ED for feeling unwell. Patient was later discharged and she began to feel better. Patient had her dialysis today. However patient began to feel unwell and so dialysis was discontinued early. Per report patient only received 1 hour of her dialysis session. Patient does produce small amounts of urine per son. Patient is lethargic and unable to provide to this HPI. Patient's altered mental status has been progressive over the past day or 2. No focal or lateralizing symptoms. Symptoms are moderate in intensity. No specific worsening improving factors. Son voices no other complaints or concerns at this time. Portions of this note were created with voice recognition technology. There may be grammatical, spelling, punctuation or sound alike errors Timing/Duration: day(s) (4 days) Severity: moderate Modifying Factors: Improves With: nothing Associated Symptoms: denies symptoms Allergies/Adverse Reactions: codeine Allergy (Unknown, Verified 01/22/22 20:19) erythromycin base Allergy (Unknown, Verified 01/22/22 20:19) latex Allergy (Unknown, Verified 01/22/22 20:19) Sulfa (Sulfonamide Antibiotics) Allergy (Unknown, Verified 01/22/22 20:19) Home Medications: Allopurinol 100 mg [Zyloprim 100 mg] 100 mg PO DAILY 12/03/17 [History] Apixaban [Eliquis 2.5 mg Tablet] 2.5 mg PO BID 08/10/20 [History] Famotidine 40 mg PO QHS 08/10/20 [History] Fluoxetine HCl 20 mg [Prozac 20 MG] 20 mg PO HS 08/10/20 [History] Ergocalciferol (Vitamin D2) [Vitamin D2] 50,000 unit PO Q7D 08/16/21 [History] Levothyroxine Sodium 50 Mcg [Synthroid 50 Mcg] 50 mcg PO DAILY 08/16/21 [History] Albuterol Sulfate [Albuterol Sulfate Hfa] 2 puff IH Q6H 01/02/22 [History] Amiodarone HCl 200 mg [Cordarone 200 MG] 200 mg PO DAILY 01/02/22 [His tory] Loratadine 10 mg [Claritin 10 mg] 10 mg PO DAILY 01/02/22 [History] Midodrine HCl [Proamatine] 5 mg PO TID 01/02/22 [History] Omeprazole 40 mg PO DAILY 01/02/22 [History] Ondansetron ODT 4 MG [Zofran Odt 4 mg] 4 mg PO Q4HPRN PRN 01/02/22 [History] Docusate Sodium [Colace] 100 mg PO PRN 01/21/22 [History] Hx Tetanus, Diphtheria Vaccination/Date Given: No Hx Influenza Vaccination/Date Given: Yes Hx Pneumococcal Vaccination/Date Given: Yes Travel Risk - International Travel Have you traveled outside of the country in past 3 weeks: No - Coronavirus Screening Are you exhibiting any of the following symptoms?: Yes Symptoms: Vomiting/Diarrhea Close contact with a COVID-19 positive Pt in past 14-21 Days: No - Vaccine Status Have you recieved a Covid-19 vaccination: Yes 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 - Review of Systems All Other Systems: Unable due to condition - Past Medical History Pertinent Past Medical History: Yes Neurological History: No Pertinent History ENT History: Cataracts Cardiac History: Arrhythmia, Congestive Heart Failure, Coronary Artery Disease, High Cholesterol, Hypertension, Myocardial Infarction (SC) Respiratory History: Sleep Apnea Endocrine Medical History: Other Musculoskeletal History: Osteoarthritis GI Medical History: Gallbladder Disease History: Renal Disease Psycho-Social History: No Pertinent History Female Reproductive Disorders: No Pertinent History Other Medical History: STAGE 3 CKD D/T USP USE OF ARTHRITIS MEDICINE, perforated bowel - Past Surgical History Past Surgical History: Yes Neuro Surgical History: No Pertinent History Cardiac: Cardiac Catheterization, Cardiac Stent Respiratory: No Pertinent History Gastrointestinal: Cholecystectomy, Colon Resection, Other Genitourinary: No Pertinent History Musculoskeletal: Other Female Surgical History: No Pertinent History Other Surgical History: Sinus Surgery, Left Heel Surgery-hematoma, COLOSTOMY, PORT PLACEMENT, FISTULA FOR DIALYSIS - Social History Smoking Status: Never smoker Exposure to second hand smoke: No Drug Use: none Patient Lives Alone: Yes (assisted living at [facility]) Significant Family History: no pertinent family hx - Nursing Vital Signs Nursing Vital Signs: Initial Vital Signs Temperature 96.9 F 01/22/22 20:05 Pulse Rate 74 01/22/22 20:05 Respiratory Rate 22 01/22/22 20:05 Blood Pressure 164/86 01/22/22 20:05 O2 Sat by Pulse Oximetry 95 01/22/22 20:05 Pain Scale Pain Intensity 0 - Physical Exam General Appearance: no apparent distress, obese, other (Altered mental status poor historian) Eye Exam: PERRL/EOMI, eyes nml inspection Ears, Nose, Throat Exam: normal ENT inspection, TMs normal, pharynx normal, moist mucous membranes Neck Exam: normal inspection, non-tender, supple, full range of motion Respiratory Exam: normal breath sounds, lungs clear, airway intact, No chest tenderness, No respiratory distress Cardiovascular Exam: regular rate/rhythm, normal heart sounds, normal peripheral pulses Gastrointestinal/Abdomen Exam: soft, normal bowel sounds, No tenderness, No mass Back Exam: normal inspection, normal range of motion, No CVA tenderness, No ve rtebral tenderness Extremity Exam: normal inspection, normal range of motion, pelvis stable Neurologic Exam: No motor deficits Skin Exam: normal color, warm, dry, No rash Lymphatic Exam: No adenopathy SpO2 Interpretation: normal SpO2: 95 O2 Delivery: Room Air - Course Nursing assessment & vital signs reviewed: Yes EKG Interpreted by Me: RATE (76), Sinus Rhythm, NORMAL AXIS, NORMAL INTERVALS - Radiology Exams Chest X-ray Interpretation: Interpreted by me (Slight blunting of left costophrenic angle. Otherwise negative chest x-ray) - CT Exams Head CT Interpretation: Tele-radiologist Report (Continued nonacute senile brain) Ordered Tests: Active Orders 24 hr Category Date Time Status Battery Container Tester Aluminum STAT Care 01/22/22 20:35 Active EKG-ER Only STAT Care 01/22/22 20:34 Active IV Insertion STAT Care 01/22/22 20:34 Active Pulse Oximetry (ED) STAT Care 01/22/22 20:34 Active CHEST 1 VIEW (PORTABLE) Stat Exams 01/22/22 20:34 Taken HEAD WITHOUT CONTRAST [CT] Stat Exams 01/22/22 20:35 Taken BLOOD CULTURE Stat Lab 01/22/22 20:34 Ordered CBC W DIFF Stat Lab 01/22/22 21:35 Completed CMP Stat Lab 01/22/22 21:35 Completed TROPONIN Q4H Lab 01/23/22 00:45 Ordered TROPONIN Q4H Lab 01/23/22 04:45 Ordered TROPONIN Stat Lab 01/22/22 21:35 Completed UA W/RFX CULTURE Stat Lab 01/22/22 Ordered Medication Summary Discontinued Medications Generic Name Dose Route Start Last Admin Trade Name Brendanq PRN Reason Stop Dose Admin Levalbuterol HCl 1.25 mg 01/22/22 19:19 01/22/22 19:20 Levalbuterol Hcl 1.25 Mg/0.5 Ml Nebule IH 01/22/22 19:20 Not Given STAT ONE Lab/Rad Data: Laboratory Result Diagrams 01/22/22 21:35 01/22/22 21:35 Laboratory Results 01/22/22 01/22/22 Range/Units 21:35 21:35 WBC 8.2 (4.0-10.5) x10^3/uL RBC 3.60 L (4.1-5.4) x10^6/uL Hgb 11.4 L (12.0-16.0) g/dL Hct 35.7 (35-47) % MCV 99.2 (78-100) fL MCH 31.7 (26-32) pg MCHC 31.9 L (32-36) g/dL RDW 13.9 (11.5-14.0) % Plt Count 200 (150-450) x10^3/uL MPV 9.5 (7.5-11.0) fL Gran % 81.2 H (36.0-66.0) % Immature Gran % (Auto) 0.4 (0.00-0.4) % Nucleat RBC Rel Count 0.0 (0.00-0.1) % Eos # (Auto) 0.01 (0-0.5) x10^3/uL Immature Gran # (Auto) 0.03 (0.00-0.03) x10^3u/L Absolute Lymphs (auto) 0.67 L (1.0-4.6) x10^3/uL Absolute Monos (auto) 0.77 (0.0-1.3) x10^3/uL Absolute Nucleated RBC 0.00 (0.00-0.01) x10^3u/L Lymphocytes % 8.2 L (24.0-44.0) % Monocytes % 9.4 (0.0-12.0) % Eosinophils % 0.1 (0.00-5.0) % Basophils % 0.7 (0.0-0.4) % Absolute Granulocytes 6.62 (1.4-6.9) x10^3/uL Basophils # 0.06 (0-0.4) x10^3/uL Sodium 136 L (137-145) mmol/L Potassium 4.3 (3.5-5.1) mmol/L Chloride 102 (98-107) mmol/L Carbon Dioxide 23 (22-30) mmol/L Anion Gap 15.6 H (5-15) MEQ/L BUN 41 H (7-17) mg/dL Creatinine 3.54 H (0.52-1.04) mg/dL Estimated GFR 13.1 ML/MIN Glucose 150 H (74-106) mg/dL Calcium 8.9 (8.4-10.2) mg/dL Total Bilirubin 1.10 (0.2-1.3) mg/dL AST 76 H (14-36) U/L ALT 46 H (0-35) U/L Alkaline Phosphatase 110 (38-126) U/L Troponin I 0.027 (0.000-0.034) ng/mL Serum Total Protein 7.1 (6.3-8.2) g/dL Albumin 3.5 (3.5-5.0) g/dL - Progress Progress: improved Progress Note: Patient reassessed. She seems to be more alert now. CT head negative. Chest x-ray essentially nonremarkable. Patient states she feels weak. Potassium within normal limits. Case discussed with Dr. Nolasco who knows patient well. Dr. Nolasco accepts admission to observation. Plan of care discussed with patient. She agrees to admission [facility] for further evaluation and treatment. Portions of this note were created with voice recognition technology. There may be grammatical, spelling, punctuation or sound alike errors 01/22/22 23:55 Discussed with : Catrachita Will see patient in: hospital (observation) Counseled pt/family regarding: lab results, diagnosis, rad results - Departure Departure Disposition: Observation Clinical Impression: Generalized weakness, End stage renal disease Condition: Stable Critical Care Time: No Referrals: GENOVEVA CASTELLANOS [Primary Care Provider] - Follow up/PCP as directed
[2022-01-22 22:32] LABS: Absolute Neutrophil Ct (ANC) 6.62 x10^3/uL (1.4-6.9); Basophil (Absolute #) 0.06 x10^3/uL (0-0.4); Eosinophil % 0.1 % (0.00-5.0); Eosinophil (Absolute #) 0.01 x10^3/uL (0-0.5); Hematocrit 35.7 % (35-47); Hemoglobin 11.4 g/dL (12.0-16.0); Lymphocyte (Absolute #) 0.67 x10^3/uL (1.0-4.6); Lymphocytes % 8.2 % (24.0-44.0); Mean Cell Volume 99.2 fL (78-100); Mean Corpuscular Hemoglobin 31.7 pg (26-32); Mean Corpuscular Hgb Concent. 31.9 g/dL (32-36); Mean Platelet Volume 9.5 fL (7.5-11.0); Monocyte (Absolute #) 0.77 x10^3/uL (0.0-1.3); Monocytes % 9.4 % (0.0-12.0); Neutrophil % 81.2 % (36.0-66.0); Platelet Count 200 x10^3/uL (150-450); Red Cell Distribution Width 13.9 % (11.5-14.0); White Blood Count 8.2 x10^3/uL (4.0-10.5)
[2022-01-22 22:58] LABS: ALBUMIN 3.5 g/dL (3.5-5.0); ANION GAP 15.6 MEQ/L (5-15); BILIRUBIN,TOTAL 1.1 mg/dL (0.2-1.3); Calcium 8.9 mg/dL (8.4-10.2); Creatinine 1 3.54 mg/dL (0.52-1.04); EST GLOMERULAR FILTRATION RATE 13.1 ML/MIN; Potassium 4.3 mmol/L (3.5-5.1); TROPONIN 0.027 ng/mL (0.000-0.034); Total Protein 7.1 g/dL (6.3-8.2)
[2022-01-23] MEDS: Ativan 2 MG/1 ML VIAL IV PRN (02:31)
[2022-01-23 03:37] LABS: Epithelial Cells RARE /HPF (FEW); Hyaline Casts 26-50 /LPF (0-2); Mucus SLIGHT /HPF (NEGATIVE); RBC 0-2 /HPF (0-2); WBC 0-2 /HPF (0-5)
[2022-01-23 03:39] LABS: Appearance CLEAR (CLEAR); Bilirubin NEGATIVE (NEGATIVE); Dipstick done @ ? MAIN LAB; Glucose NEGATIVE (NEGATIVE); Ketones NEGATIVE (NEGATIVE); Nitrite NEGATIVE (NEGATIVE); Ph 5.5 (5-6); Protein,Urine Dip NEGATIVE (Negative); RBC TRACE-INTACT Ery/ul (0-5); Specific Gravity 1.025 (1.005-1.025); Urobilinogen 0.2 mg/dL (0-1)
[2022-01-23 03:40] LABS: Urine Cultured Indicated? NO
[2022-01-23 04:53] LABS: Absolute Neutrophil Ct (ANC) 5.39 x10^3/uL (1.4-6.9); Basophil (Absolute #) 0.07 x10^3/uL (0-0.4); Eosinophil % 0.4 % (0.00-5.0); Eosinophil (Absolute #) 0.03 x10^3/uL (0-0.5); Hematocrit 32.1 % (35-47); Hemoglobin 10.3 g/dL (12.0-16.0); Lymphocyte (Absolute #) 1.13 x10^3/uL (1.0-4.6); Mean Cell Volume 99.7 fL (78-100); Mean Corpuscular Hgb Concent. 32.1 g/dL (32-36); Mean Platelet Volume 9.6 fL (7.5-11.0); Monocyte (Absolute #) 0.85 x10^3/uL (0.0-1.3); Monocytes % 11.3 % (0.0-12.0); Neutrophil % 71.9 % (36.0-66.0); Platelet Count 174 x10^3/uL (150-450); Red Blood Count 3.22 x10^6/uL (4.1-5.4); Red Cell Distribution Width 13.9 % (11.5-14.0); White Blood Count 7.5 x10^3/uL (4.0-10.5)
[2022-01-23 05:03] LABS: ALBUMIN 3.1 g/dL (3.5-5.0); BILIRUBIN,TOTAL 1.1 mg/dL (0.2-1.3); Calcium 8.9 mg/dL (8.4-10.2); Creatinine 1 3.6 mg/dL (0.52-1.04); EST GLOMERULAR FILTRATION RATE 12.9 ML/MIN; Potassium 3.9 mmol/L (3.5-5.1); Total Protein 6.4 g/dL (6.3-8.2)
--- NOTE | 2022-01-23 08:39 | XRAY ---
Indication: Altered mental status. Stroke. Multiple contiguous images obtained through the head without contrast. Comparison: January 02, 2022 Grossly stable age-appropriate global atrophy and mild periventricular degenerative micro-ischemia. No acute intracranial hemorrhage, abnormal extra-axial fluid collection, or mass effect. Fourth ventricle is midline without hydrocephalus. Bony calvarium intact. Visualized paranasal sinuses and mastoid air cells are clear. Impression: Continued nonacute senile brain.
--- NOTE | 2022-01-23 08:50 | XRAY ---
Indication: Pneumonia. Vomiting. Comparison: January 02, 2022 Portable chest demonstrates diminished bibasilar effusions with tiny residual still present. Heart not enlarged again with right double-lumen dialysis catheter tip in right ventricle. No new cardiopulmonary abnormalities.
[2022-01-23] MEDS ORDERED: ZOFRAN ODT 4 MG PO PRN (12:31)
[2022-01-23] MEDS: Sodium Chloride 0.9% 1000 ML 1,000 ML IV SCH (12:50)
[2022-01-23] MEDS: Cordarone 200 MG PO SCH (12:50)
[2022-01-23] MEDS: SYNTHROID 50 MCG PO SCH (12:51)
[2022-01-23] MEDS: ELIQUIS 2.5 MG TABLET PO SCH ×2 (12:51→23:11)
[2022-01-23] MEDS: Protonix 40MG Tablet PO SCH (12:51)
[2022-01-23] MEDS: ZYLOPRIM 100 MG PO SCH (12:51)
[2022-01-23] MEDS: VENTOLIN COMMON CANISTER IH SCH ×2 (13:52→18:44)
[2022-01-23] MEDS: PROAMATINE PO SCH (16:15)
--- NOTE | 2022-01-23 16:21 | PCM.HP ---
History of Present Illness - Chief Complaint Chief Complaint: Generalized weakness History of Present Illness: is a 82 year old female.presents to emergency department via private vehicle. Patient's son at bedside states that patient has been feeling unwell for the past week. Patient missed her dialysis on Saturday. Patient presented to our ED for feeling unwell. Patient was later discharged and she began to feel better. Patient had her dialysis today. However patient began to feel unwell and so dialysis was discontinued early. Per report patient only received 1 hour of her dialysis session. Patient does produce small amounts of urine per son. Patient is lethargic and unable to provide to this HPI. Patient's altered mental status has been progressive over the past day or 2. No focal or lateralizing symptoms. Symptoms are moderate in intensity. No specifi c worsening improving factors. Son voices no other complaints or concerns at this time. - Review of Systems Constitutional: Lethargy, Malaise, Weakness, No Fever, No Chills Eyes: No Symptoms Ears, Nose, & Throat: No Symptoms Respiratory: Orthopnea, No Cough, No Short Of Breath Cardiac: No Chest Pain, No Edema, No Syncope Abdominal/Gastrointestinal: No Abdominal Pain, No Nausea, No Vomiting, No Diarrhea Genitourinary Symptoms: No Dysuria Musculoskeletal: No Back Pain, No Neck Pain Skin: No Rash Neurological: No Dizziness, No Focal Weakness, No Sensory Changes Psychological: No Symptoms Endocrine: No Symptoms Hematologic/Lymphatic: No Symptoms Immunological/Allergic: No Symptoms Medications & Allergies Home Medications: Home Medication List Allopurinol 100 mg [Zyloprim 100 mg] 100 mg PO DAILY 12/03/17 [History Confirmed 01/23/22] Apixaban [Eliquis 2.5 mg Tablet] 2.5 mg PO BID 08/10/20 [History Confirmed 01/23/22] Famotidine 40 mg PO QHS 08/10/20 [History Confirmed 01/23/22] Fluoxetine HCl 20 mg [Prozac 20 MG] 20 mg PO HS 08/10/20 [History Confirmed 01/23/22] Ergocalciferol (Vitamin D2) [Vitamin D2] 50,000 unit PO Q7D 08/16/21 [History Confirmed 01/23/22] Levothyroxine Sodium 50 Mcg [Synthroid 50 Mcg] 50 mcg PO DAILY 08/16/21 [History Confirmed 01/23/22] Albuterol Sulfate [Albuterol Sulfate Hfa] 2 puff IH Q6H 01/02/22 [History Confirmed 01/23/22] Amiodarone HCl 200 mg [Cordarone 200 MG] 200 mg PO DAILY 01/02/22 [History Confirmed 01/23/22] Midodrine HCl [Proamatine] 5 mg PO BID 01/02/22 [History Confirmed 01/23/22] Omeprazole 40 mg PO DAILY 01/02/22 [History Confirmed 01/23/22] Ondansetron ODT 4 MG [Zofran Odt 4 mg] 4 mg PO Q4H PRN PRN #20 tablet 01/21/22 [Rx Confirmed 01/23/22] Allergies/Adverse Reactions: Allergies Allergy/AdvReac Type Severity Reaction Status Date / Time codeine Allergy Unknown Verified 01/22/22 20:19 erythromycin base Allergy Unknown Verified 01/22/22 20:19 latex Allergy Unknown Verified 01/22/22 20:19 Sulfa (Sulfonamide Allergy Unknown Verified 01/22/22 20:19 Antibiotics) - Past Medical History Past Medical History: Yes Neurological History: No Pertinent History ENT History: Cataracts Cardiac History: Arrhythmia, Congestive Heart Failure, Coronary Artery Disease, High Cholesterol, Hypertension, Myocardial Infarction ([place]) Respiratory History: Sleep Apnea Endocrine Medical History: Other Musculoskelatal History: Osteoarthritis GI Medical History: Gallbladder Disease History: Renal Disease Pyscho-Social History: No Pertinent History Reproductive Disorders: No Pertinent History Comment: STAGE 3 CKD D/T GROUP HOME USE OF ARTHRITIS MEDICINE, perforated bowel - Past Surgical History Past Surgical History: Yes Neuro Surgical History: No Pertinent History Cardiac History: Cardiac Catheterization, Cardiac Stent Respiratory Surgery: No Pertinent History GI Surgical History: Cholecystectomy, Colon Resection, Other Genitourinary Surgical Hx: No Pertinent History Musculskeletal Surgical Hx: Other Female Surgical History: No Pertinent History Other Surgical History: Sinus Surgery, Left Heel Surgery-hematoma, COLOSTOMY, PORT PLACEMENT, FISTULA FOR DIALYSIS - Social History Smoking Status: Never smoker Exposure to second hand smoke: No Alcohol: None Drug Use: none Significant Family History: no pertinent family hx - Physical Exam Vital Signs: Vital Signs - 24 hr Temp Pulse Resp BP Pulse Ox 01/23/22 16:00 18 01/23/22 12:00 16 01/23/22 11:27 96.9 F 65 18 128/61 96 01/23/22 08:22 93 L 01/23/22 07:45 17 01/23/22 07:09 98.2 F 85 17 128/60 93 L 01/23/22 06:49 97.7 F 100 H 17 129/76 01/23/22 04:00 87 17 108/55 94 L 01/23/22 01:10 92 L 01/23/22 00:25 95 01/22/22 23:56 95 01/22/22 23:13 108 H 18 92 L 01/22/22 22:00 98 H 16 100 01/22/22 21:16 83 18 132/54 01/22/22 21:00 98 01/22/22 20:05 96.9 F 74 22 164/86 95 General Appearance: no apparent distress, alert Neurologic Exam: alert, oriented x 3, cooperative, normal mood/affect, nml cerebellar function, nml station & gait, sensation nml, No motor deficits Eye Exam: PERRL/EOMI, eyes nml inspection Ears, Nose, Throat Exam: normal ENT inspection, TMs normal, pharynx normal, moist mucous membranes Neck Exam: normal inspection, non-tender, supple, full range of motion Respiratory Exam: diminished breath sounds, crackles/rales, rhonchi, wheezing, No respiratory distress Cardiovascular Exam: regular rate/rhythm, normal heart sounds, normal peripheral pulses Gastrointestinal/Abdomen Exam: soft, normal bowel sounds, No tenderness, No mass Back Exam: normal inspection, normal range of motion, No CVA tenderness, No vertebral tenderness Extremity Exam: normal inspection, normal range of motion, pelvis stable Skin Exam: normal color, warm, dry, No rash Lymphatic Exam: No adenopathy Results - Labs Lab/Micro Results: Lab Results-Last 24 Hours 01/22/22 01/22/22 01/23/22 Range/Units 21:35 21:35 01:40 WBC 8.2 (4.0-10.5) x10^3/uL RBC 3.60 L (4.1-5.4) x10^6/uL Hgb 11.4 L (12.0-16.0) g/dL Hct 35.7 (35-47) % MCV 99.2 (78-100) fL MCH 31.7 (26-32) pg MCHC 31.9 L (32-36) g/dL RDW 13.9 (11.5-14.0) % Plt Count 200 (150-450) x10^3/uL MPV 9.5 (7.5-11.0) fL Gran % 81.2 H (36.0-66.0) % Immature Gran % (Auto) 0.4 (0.00-0.4) % Nucleat RBC Rel Count 0.0 (0.00-0.1) % Eos # (Auto) 0.01 (0-0.5) x10^3/uL Immature Gran # (Auto) 0.03 (0.00-0.03) x10^3u/L Absolute Lymphs (auto) 0.67 L (1.0-4.6) x10^3/uL Absolute Monos (auto) 0.77 (0.0-1.3) x10^3/uL Absolute Nucleated RBC 0.00 (0.00-0.01) x10^3u/L Lymphocytes % 8.2 L (24.0-44.0) % Monocytes % 9.4 (0.0-12.0) % Eosinophils % 0.1 (0.00-5.0) % Basophils % 0.7 (0.0-0.4) % Absolute Granulocytes 6.62 (1.4-6.9) x10^3/uL Basophils # 0.06 (0-0.4) x10^3/uL Sodium 136 L (137-145) mmol/L Potassium 4.3 (3.5-5.1) mmol/L Chloride 102 (98-107) mmol/L Carbon Dioxide 23 (22-30) mmol/L Anion Gap 15.6 H (5-15) MEQ/L BUN 41 H (7-17) mg/dL Creatinine 3.54 H (0.52-1.04) mg/dL Estimated GFR 13.1 ML/MIN Glucose 150 H (74-106) mg/dL Calcium 8.9 (8.4-10.2) mg/dL Total Bilirubin 1.10 (0.2-1.3) mg/dL AST 76 H (14-36) U/L ALT 46 H (0-35) U/L Alkaline Phosphatase 110 (38-126) U/L Troponin I 0.027 0.065 H* (0.000-0.034) ng/mL Serum Total Protein 7.1 (6.3-8.2) g/dL Albumin 3.5 (3.5-5.0) g/dL Urinalys Dipstick Clnc Urine Color (YELLOW) Urine Appearance (CLEAR) Urine pH (5-6) Ur Specific [place] (1.005-1.025) POC Urine Protein Conf (Negative) Urine Ketones (NEGATIVE) Urine Nitrite (NEGATIVE) Urine Bilirubin (NEGATIVE) Urine Urobilinogen (0-1) mg/dL Urine Leukocytes (NEGATIVE) Urine WBC (Auto) (0-5) /HPF Urine RBC (Auto) (0-2) /HPF U Hyaline Cast (Auto) (0-2) /LPF U Epithel Cells (Auto) (FEW) /HPF Urine Bacteria (Auto) (NEGATIVE) /HPF Urine RBC (0-5) Simone/ul Urine Mucus (Auto) (NEGATIVE) /HPF Ur Culture Indicated? Urine Glucose (NEGATIVE) mg/dL 01/23/22 01/23/22 01/23/22 Range/Units 03:00 04:20 04:20 WBC 7.5 (4.0-10.5) x10^3/uL RBC 3.22 L (4.1-5.4) x10^6/uL Hgb 10.3 L (12.0-16.0) g/dL Hct 32.1 L (35-47) % MCV 99.7 (78-100) fL MCH 32.0 (26-32) pg MCHC 32.1 (32-36) g/dL RDW 13.9 (11.5-14.0) % Plt Count 174 (150-450) x10^3/uL MPV 9.6 (7.5-11.0) fL Gran % 71.9 H (36.0-66.0) % Immature Gran % (Auto) 0.5 H (0.00-0.4) % Nucleat RBC Rel Count 0.0 (0.00-0.1) % Eos # (Auto) 0.03 (0-0.5) x10^3/uL Immature Gran # (Auto) 0.04 H (0.00-0.03) x10^3u/L Absolute Lymphs (auto) 1.13 (1.0-4.6) x10^3/uL Absolute Monos (auto) 0.85 (0.0-1.3) x10^3/uL Absolute Nucleated RBC 0.00 (0.00-0.01) x10^3u/L Lymphocytes % 15.0 L (24.0-44.0) % Monocytes % 11.3 (0.0-12.0) % Eosinophils % 0.4 (0.00-5.0) % Basophils % 0.9 (0.0-0.4) % Absolute Granulocytes 5.39 (1.4-6.9) x10^3/uL Basophils # 0.07 (0-0.4) x10^3/uL Sodium (137-145) mmol/L Potassium (3.5-5.1) mmol/L Chloride (98-107) mmol/L Carbon Dioxide (22-30) mmol/L Anion Gap (5-15) MEQ/L BUN (7-17) mg/dL Creatinine (0.52-1.04) mg/dL Estimated GFR ML/MIN Glucose (74-106) mg/dL Calcium (8.4-10.2) mg/dL Total Bilirubin (0.2-1.3) mg/dL AST (14-36) U/L ALT (0-35) U/L Alkaline Phosphatase (38-126) U/L Troponin I 0.096 H* (0.000-0.034) ng/mL Serum Total Protein (6.3-8.2) g/dL Albumin (3.5-5.0) g/dL Urinalys Dipstick Clnc MAIN LAB Urine Color YELLOW (YELLOW) Urine Appearance CLEAR (CLEAR) Urine pH 5.5 (5-6) Ur Specific [place] 1.025 (1.005-1.025) POC Urine Protein Conf NEGATIVE (Negative) Urine Ketones NEGATIVE (NEGATIVE) Urine Nitrite NEGATIVE (NEGATIVE) Urine Bilirubin NEGATIVE (NEGATIVE) Urine Urobilinogen 0.2 (0-1) mg/dL Urine Leukocytes NEGATIVE (NEGATIVE) Urine WBC (Auto) 0-2 (0-5) /HPF Urine RBC (Auto) 0-2 (0-2) /HPF U Hyaline Cast (Auto) 26-50 A (0-2) /LPF U Epithel Cells (Auto) RARE (FEW) /HPF Urine Bacteria (Auto) NONE (NEGATIVE) /HPF Urine RBC TRACE-INTACT A (0-5) Simone/ul Urine Mucus (Auto) SLIGHT A (NEGATIVE) /HPF Ur Culture Indicated? NO Urine Glucose NEGATIVE (NEGATIVE) mg/dL 01/23/22 Range/Units 04:20 WBC (4.0-10.5) x10^3/uL RBC (4.1-5.4) x10^6/uL Hgb (12.0-16.0) g/dL Hct (35-47) % MCV (78-100) fL MCH (26-32) pg MCHC (32-36) g/dL RDW (11.5-14.0) % Plt Count (150-450) x10^3/uL MPV (7.5-11.0) fL Gran % (36.0-66.0) % Immature Gran % (Auto) (0.00-0.4) % Nucleat RBC Rel Count (0.00-0.1) % Eos # (Auto) (0-0.5) x10^3/uL Immature Gran # (Auto) (0.00-0.03) x10^3u/L Absolute Lymphs (auto) (1.0-4.6) x10^3/uL Absolute Monos (auto) (0.0-1.3) x10^3/uL Absolute Nucleated RBC (0.00-0.01) x10^3u/L Lymphocytes % (24.0-44.0) % Monocytes % (0.0-12.0) % Eosinophils % (0.00-5.0) % Basophils % (0.0-0.4) % Absolute Granulocytes (1.4-6.9) x10^3/uL Basophils # (0-0.4) x10^3/uL Sodium 137 (137-145) mmol/L Potassium 3.9 (3.5-5.1) mmol/L Chloride 103 (98-107) mmol/L Carbon Dioxide 28 (22-30) mmol/L Anion Gap 10.0 (5-15) MEQ/L BUN 45 H (7-17) mg/dL Creatinine 3.60 H (0.52-1.04) mg/dL Estimated GFR 12.9 ML/MIN Glucose 119 H (74-106) mg/dL Calcium 8.9 (8.4-10.2) mg/dL Total Bilirubin 1.10 (0.2-1.3) mg/dL AST 64 H (14-36) U/L ALT 43 H (0-35) U/L Alkaline Phosphatase 92 (38-126) U/L Troponin I (0.000-0.034) ng/mL Serum Total Protein 6.4 (6.3-8.2) g/dL Albumin 3.1 L (3.5-5.0) g/dL Urinalys Dipstick Clnc Urine Color (YELLOW) Urine Appearance (CLEAR) Urine pH (5-6) Ur Specific [place] (1.005-1.025) POC Urine Protein Conf (Negative) Urine Ketones (NEGATIVE) Urine Nitrite (NEGATIVE) Urine Bilirubin (NEGATIVE) Urine Urobilinogen (0-1) mg/dL Urine Leukocytes (NEGATIVE) Urine WBC (Auto) (0-5) /HPF Urine RBC (Auto) (0-2) /HPF U Hyaline Cast (Auto) (0-2) /LPF U Epithel Cells (Auto) (FEW) /HPF Urine Bacteria (Auto) (NEGATIVE) /HPF Urine RBC (0-5) Simone/ul Urine Mucus (Auto) (NEGATIVE) /HPF Ur Culture Indicated? Urine Glucose (NEGATIVE) mg/dL - Radiology Impressions Radiology Exams & Impressions: Radiology Procedures Category Date Time Status CHEST 1 VIEW (PORTABLE) Stat Exams 01/22/22 20:34 Completed HEAD WITHOUT CONTRAST [CT] Stat Exams 01/22/22 20:35 Completed - Other Procedures and Tests Respiratory Therapy 01/23/22 01:43 BiPap/CPAP ROUTINE Assessment/Plan (1) End stage renal disease Current Visit: Yes Status: Acute Assessment & Plan: Chief Complaint Diagnosis Generalized weakness Allergies Allergy/AdvReac Type Severity Reaction Status Date / Time codeine Allergy Unknown Verified 01/22/22 20:19 erythromycin base Allergy Unknown Verified 01/22/22 20:19 latex Allergy Unknown Verified 01/22/22 20:19 Sulfa (Sulfonamide Allergy Unknown Verified 01/22/22 20:19 Antibiotics) Vital Signs (Last 24 hours) Temp Pulse Resp BP Pulse Ox 01/23/22 16:00 18 01/23/22 12:00 16 01/23/22 11:27 96.9 F 65 18 128/61 96 01/23/22 08:22 93 L 01/23/22 07:45 17 01/23/22 07:09 98.2 F 85 17 128/60 93 L 01/23/22 06:49 97.7 F 100 H 17 129/76 01/23/22 04:00 87 17 108/55 94 L 01/23/22 01:10 92 L 01/23/22 00:25 95 01/22/22 23:56 95 01/22/22 23:13 108 H 18 92 L 01/22/22 22:00 98 H 16 100 01/22/22 21:16 83 18 132/54 01/22/22 21:00 98 01/22/22 20:05 96.9 F 74 22 164/86 95 Current Medications Generic Name Dose Route Start Last Admin Trade Name Freq PRN Reason Stop Dose Admin Albuterol Sulfate 2 puff 01/23/22 13:00 01/23/22 13:52 Albuterol Common Canister Inhaler IH 02/22/22 12:59 Not Given Q6HRT ALISHA Allopurinol 100 mg 01/23/22 13:00 01/23/22 12:51 Allopurinol 100 Mg Tablet PO 02/22/22 12:59 Not Given DAILY ALISHA Amiodarone HCl 200 mg 01/23/22 13:00 01/23/22 12:50 Amiodarone Hcl 200 Mg Tab PO 02/22/22 12:59 Not Given DAILY ALISHA Apixaban 2.5 mg 01/23/22 13:00 01/23/22 12:51 Apixaban 2.5 Mg Tablet PO 02/22/22 12:59 Not Given BID ALISHA Ergocalciferol 50,000 unit 01/28/22 10:00 Ergocalciferol (Vitamin D2) 50,000 Unit Capsule PO 02/27/22 09:59 Q7D ALISHA Famotidine 40 mg 01/23/22 22:00 Famotidine 20 Mg Tablet PO 02/22/22 21:59 QHS ALISHA Fluoxetine HCl 20 mg 01/23/22 22:00 Fluoxetine Hcl 20 Mg Cap PO 02/22/22 21:59 HS ALISHA Sodium Chloride 1,000 mls @ 60 mls/hr 01/23/22 12:15 01/23/22 12:50 Sodium Chloride 0.9% 1000 Ml IV 02/22/22 12:14 60 mls/hr .[id number] ALISHA Administration Levothyroxine Sodium 50 mcg 01/23/22 13:00 01/23/22 12:51 Levothyroxine Sodium 50 Mcg Tablet PO 02/22/22 12:59 Not Given DAILY ALISHA Lorazepam 1 mg 01/23/22 02:26 01/23/22 02:31 Lorazepam 2 Mg/1 Ml 2 Mg Vial IV 02/22/22 02:25 1 mg Q6H PRN PRN Administration ANXIETY Midodrine 5 mg 01/23/22 17:00 01/23/22 16:15 Midodrine Hcl 5 Mg Tablet PO 02/22/22 16:59 Not Given BIDWM ALISHA Ondansetron HCl 4 mg 01/23/22 12:31 Zofran 4 Mg/Udtablet Orally Disintegrating PO 02/22/22 12:30 Q4H PRN PRN NAUSEA Pantoprazole Sodium 40 mg 01/23/22 13:00 01/23/22 12:51 Protonix (Pantoprazole) 40 Mg Tablet PO 02/22/22 12:59 Not Given DAILY ALISHA Discontinued Medications Generic Name Dose Route Start Last Admin Trade Name Freq PRN Reason Stop Dose Admin Levalbuterol HCl 1.25 mg 01/22/22 19:19 01/22/22 19:20 Levalbuterol Hcl 1.25 Mg/0.5 Ml Nebule IH 01/22/22 19:20 Not Given STAT ONE Intake & Output (Last 24 hours) 01/21/22 01/22/22 01/23/22 01/24/22 11:59 11:59 11:59 11:59 Intake Total 0 0 Output Total 100 Balance -100 0 Weight 117.2 kg Microbiology Results (Last 24 hours) 01/22/22 20:34 Blood Blood Culture Gram Stain - Pending 01/22/22 20:34 Blood Blood Culture - Pending 01/22/22 20:34 Blood Blood Culture Gram Stain - Pending 01/22/22 20:34 Blood Blood Culture - Pending Laboratory Results (Last 24 hours) 01/23/22 01/23/22 01/23/22 04:20 04:20 04:20 WBC 7.5 RBC 3.22 L Hgb 10.3 L Hct 32.1 L MCV 99.7 MCH 32.0 MCHC 32.1 RDW 13.9 Plt Count 174 MPV 9.6 Gran % 71.9 H Immature Gran % (Auto) 0.5 H Nucleat RBC Rel Count 0.0 Eos # (Auto) 0.03 Immature Gran # (Auto) 0.04 H Absolute Lymphs (auto) 1.13 Absolute Monos (auto) 0.85 Absolute Nucleated RBC 0.00 Lymphocytes % 15.0 L Monocytes % 11.3 Eosinophils % 0.4 Basophils % 0.9 Absolute Granulocytes 5.39 Basophils # 0.07 Sodium 137 Potassium 3.9 Chloride 103 Carbon Dioxide 28 Anion Gap 10.0 BUN 45 H Creatinine 3.60 H Estimated GFR 12.9 Glucose 119 H Calcium 8.9 Total Bilirubin 1.10 AST 64 H ALT 43 H Alkaline Phosphatase 92 Troponin I 0.096 H* Serum Total Protein 6.4 Albumin 3.1 L Urinalys Dipstick Clnc Urine Color Urine Appearance Urine pH Ur Specific [place] POC Urine Protein Conf Urine Ketones Urine Nitrite Urine Bilirubin Urine Urobilinogen Urine Leukocytes Urine WBC (Auto) Urine RBC (Auto) U Hyaline Cast (Auto) U Epithel Cells (Auto) Urine Bacteria (Auto) Urine RBC Urine Mucus (Auto) Ur Culture Indicated? Urine Glucose 01/23/22 01/23/22 01/22/22 03:00 01:40 21:35 WBC RBC Hgb Hct MCV MCH MCHC RDW Plt Count MPV Gran % Immature Gran % (Auto) Nucleat RBC Rel Count Eos # (Auto) Immature Gran # (Auto) Absolute Lymphs (auto) Absolute Monos (auto) Absolute Nucleated RBC Lymphocytes % Monocytes % Eosinophils % Basophils % Absolute Granulocytes Basophils # Sodium 136 L Potassium 4.3 Chloride 102 Carbon Dioxide 23 Anion Gap 15.6 H BUN 41 H Creatinine 3.54 H Estimated GFR 13.1 Glucose 150 H Calcium 8.9 Total Bilirubin 1.10 AST 76 H ALT 46 H Alkaline Phosphatase 110 Troponin I 0.065 H* 0.027 Serum Total Protein 7.1 Albumin 3.5 Urinalys Dipstick Clnc MAIN LAB Urine Color YELLOW Urine Appearance CLEAR Urine pH 5.5 Ur Specific [place] 1.025 POC Urine Protein Conf NEGATIVE Urine Ketones NEGATIVE Urine Nitrite NEGATIVE Urine Bilirubin NEGATIVE Urine Urobilinogen 0.2 Urine Leukocytes NEGATIVE Urine WBC (Auto) 0-2 Urine RBC (Auto) 0-2 U Hyaline Cast (Auto) 26-50 A U Epithel Cells (Auto) RARE Urine Bacteria (Auto) NONE Urine RBC TRACE-INTACT A Urine Mucus (Auto) SLIGHT A Ur Culture Indicated? NO Urine Glucose NEGATIVE 01/22/22 21:35 WBC 8.2 RBC 3.60 L Hgb 11.4 L Hct 35.7 MCV 99.2 MCH 31.7 MCHC 31.9 L RDW 13.9 Plt Count 200 MPV 9.5 Gran % 81.2 H Immature Gran % (Auto) 0.4 Nucleat RBC Rel Count 0.0 Eos # (Auto) 0.01 Immature Gran # (Auto) 0.03 Absolute Lymphs (auto) 0.67 L Absolute Monos (auto) 0.77 Absolute Nucleated RBC 0.00 Lymphocytes % 8.2 L Monocytes % 9.4 Eosinophils % 0.1 Basophils % 0.7 Absolute Granulocytes 6.62 Basophils # 0.06 Sodium Potassium Chloride Carbon Dioxide Anion Gap BUN Creatinine Estimated GFR Glucose Calcium Total Bilirubin AST ALT Alkaline Phosphatase Troponin I Serum Total Protein Albumin Urinalys Dipstick Clnc Urine Color Urine Appearance Urine pH Ur Specific [place] POC Urine Protein Conf Urine Ketones Urine Nitrite Urine Bilirubin Urine Urobilinogen Urine Leukocytes Urine WBC (Auto) Urine RBC (Auto) U Hyaline Cast (Auto) U Epithel Cells (Auto) Urine Bacteria (Auto) Urine RBC Urine Mucus (Auto) Ur Culture Indicated? Urine Glucose Orders (Last 24 hours) Category Date Time Status Bedrest ROUTINE Activity 01/23/22 00:25 Active Range Examiner STAT Care 01/22/22 20:35 Completed Catheter Care Record Q6H Care 01/23/22 03:25 Active Code Status Order ROUTINE Care 01/23/22 00:25 Active EKG-ER Only STAT Care 01/22/22 20:34 Completed [place] [Catheter-[place]] STAT Care 01/23/22 03:25 Active IV Care Q6H Care 01/23/22 00:25 Active IV Insertion STAT Care 01/22/22 20:34 Completed Miscellaneous Nursing Order ROUTINE Care 01/24/22 08:00 Active Neuro Checks Q4H Care 01/23/22 00:[address] in Observation ROUTINE Care 01/23/22 00:25 Active Pulse Oximetry (ED) STAT Care 01/22/22 20:34 Completed Telemetry q6h Care 01/23/22 00:25 Active Consult Nephrology ROUTINE Cons 01/23/22 10:29 Active Consistent Carbohydrate Diet 1800 Calorie Diet 01/23/22 Breakfast Active CHEST 1 VIEW (PORTABLE) Stat Exams 01/22/22 20:34 Completed HEAD WITHOUT CONTRAST [CT] Stat Exams 01/22/22 20:35 Completed BLOOD CULTURE Stat Lab 01/22/22 20:34 Ordered CBC W DIFF AM.LAB Lab 01/23/22 04:20 Completed CBC W DIFF AM.LAB Lab 01/24/22 04:00 Ordered CBC W DIFF Stat Lab 01/22/22 21:35 Completed CMP AM.LAB Lab 01/23/22 04:20 Completed CMP AM.LAB Lab 01/24/22 04:00 Ordered CMP Stat Lab 01/22/22 21:35 Completed TROPONIN Q4H Lab 01/23/22 01:40 Completed TROPONIN Q4H Lab 01/23/22 04:20 Completed TROPONIN Stat Lab 01/22/22 21:35 Completed UA W/RFX CULTURE Stat Lab 01/23/22 03:00 Completed Albuterol Common Canister [Ventolin Common Canister* Med 01/23/22 13:00 Active ] 2 puff IH Q6HRT Allopurinol 100 mg [Zyloprim 100 mg] Med 01/23/22 13:00 Active 100 mg PO DAILY Amiodarone HCl 200 mg [Cordarone 200 MG] Med 01/23/22 13:00 Active 200 mg PO DAILY Apixaban [Eliquis 2.5 mg Tablet] Med 01/23/22 13:00 Active 2.5 mg PO BID Ergocalciferol (Vitamin D2) [Vitamin D2] Med 01/28/22 10:00 Active 50,000 unit PO Q7D Famotidine 20 mg [Pepcid 20 MG] Med 01/23/22 22:00 Active 40 mg PO QHS Fluoxetine HCl 20 mg [Prozac 20 MG] Med 01/23/22 22:00 Active 20 mg PO HS Levalbuterol HCl 1.25 MG/0.5M* [Xopenex 1.25 MG/0.5 ML Med 01/22/22 19:19 Discontinued UD NEBULE] 1.25 mg IH STAT ONE Levothyroxine Sodium 50 Mcg [Synthroid 50 Mcg] Med 01/23/22 13:00 Active 50 mcg PO DAILY Lorazepam 2 mg/1 ml [Ativan 2 MG/1 ML VIAL] Med 01/23/22 02:26 Active 1 mg IV Q6H PRN PRN Midodrine HCl [Proamatine] Med 01/23/22 17:00 Active 5 mg PO BIDWM NaCl 0.9% 1000 ml [Sodium Chloride 0.9% 1000 ML] 1,000 Med 01/23/22 12:15 Active ml IV 60 mls/hr Ondansetron ODT 4 MG [Zofran Odt 4 mg] Med 01/23/22 12:31 Active 4 mg PO Q4H PRN PRN PANTOPRAZOLE 40 mg Tablet [Protonix 40MG Tablet] Med 01/23/22 13:00 Active 40 mg PO DAILY PT Eval & Treat (MD Order) ONCE PT 01/23/22 09:00 Active BiPap/CPAP ROUTINE RT 01/23/22 01:43 Active Pulse Oximetry CONTINUOUS RT 01/23/22 00:25 Active Patient Care Notes (Last 24 hours) 01/23/22 13:52 Respiratory Note by Dilcia Paris RT at bedside to give scheduled alb MDI. Patient was asleep on cpap. Family refused all assessments and MDI at this time. Initialized on 01/23/22 13:52 - END OF NOTE 01/23/22 13:10 Nursing Note by Lexy Zafar dr updated by phone of plan to hold dialysis for a couple of weeks. orders received to update him tomorrow of am lab results as patient was recently increased from 2days/week of dialysiss to 3 days/week for fluid overload. Initialized on 01/23/22 13:10 - END OF NOTE 01/23/22 12:59 Case Management Note by Mijares,Dayana [facility] NOTIFIED PATIENT IS HERE OBS. THEY WILL NEED NOTIFIED AT TIME OF DC AT [phone]. THEY WILL NEED FAXED THE DC INSTRUCTIONS, DC MED LIST AND DC SUMMARY ( IF AVAILABLE) [phone] Initialized on 01/23/22 12:59 - END OF NOTE 01/23/22 12:50 Case Management Note by Dayana Mijares FAMILY PRESENT AT BEDSIDE. DR. PRINCE JUST ROUNDED AND S/W FAMILY. FAMILY AWARE THAT BECAUSE PATIENT'S PRIOR LEVEL OF FUNCTIONING IS JUST TRANSFERRING- [facility] WILL NOT LIKELY PAY FOR REHAB. THEY REPORT PATIENT WAS JUST RECENTLY DENIED REHAB STAY AT [facility] FOR THIS REASON. FAMILY REPORTS THEY ARE NOT ABLE TO PROVIDE HER THE CARE SHE NEEDS AT HOME. THEY REPORT PATIENT HAS FUNDS TO PRIVATE PAY FOR CARE AT [facility]. THEY WOULD LIKE PATIENT TO GO TO THE [facility] ([facility] REFERRAL FAXED AND CALLED AT THIS TIME. FAMILY ALSO AWARE IF PATIENT UNABLE TO TOLERATE DIALYSIS ANYMORE AND WISHED TO STOP THEY COULD HAVE HOSPICE CARE. Initialized on 01/23/22 12:50 - END OF NOTE 01/23/22 12:35 Nursing Note by Sofiya Erazo. CALLED TO GET AN UPDATE ON CONSULT (DAVID) Initialized on 01/23/22 12:35 - END OF NOTE 01/23/22 11:55 Nursing Note by Lexy Zafar dr at bedside, long discussion had with family about plan of care. will discuss with nephology about taking a dialysis break for a couple of weeks and place pt in a rehab to get stronger. family in agreement with this. Initialized on 01/23/22 11:55 - END OF NOTE 01/23/22 11:13 Physical Therapy Note by Ciro(L#[id number])Tania ATTEMPTED P.T. EVAL THIS AM AND PT. VERY LETHARGIC. ABLE TO MOVE EACH LE ON COMMAND. HAD ATIVAN LAST NIGHT D/T AGITATION. NSG TO CALL P.T FOR ASSESSMENT WHEN HER LEVEL OF AWARENESS IMPROVES. Initialized on 01/23/22 11:13 - END OF NOTE 01/23/22 10:39 Case Management Note by Dayana Mijares S/W DR. PRINCE ABOUT PLAN OF CARE- HE REPORTS PATIENT HAS NOT BEEN ABLE TOLERATE DIALYSIS. HE STATED TO GO AHEAD AND [facility]OLOG[facility] BUT [facility] HAS NOT HAD ANY BEDS FOR TRANSFER. IN THE MEANTIME- WORK ON [facility] PLACEMENT. PATIENT AWARE PATIENT LETHARGIC AND HAD ATIVAN LAST NIGHT. PATIENT HAS MEDICARE ADVANTAGE PLAN AND WILL NEED A PT EVAL SHOWING REHAB POTENTIAL IN ORDER TO GET APPROVAL FOR STAY. HOPEFUL PATIENT WILL WAKE UP ENOUGH FOR PT EVAL Initialized on 01/23/22 10:39 - END OF NOTE 01/23/22 09:43 Nursing Note by Sofiya Erazo called consult to Dr. Figueroa's office. Initialized on 01/23/22 09:43 - END OF NOTE 01/23/22 06:48 Nursing Note by Tena Daniels unable to keep tele on pt r/t pt intermittent restlessness/ sporatic movment Initialized on 01/23/22 06:48 - END OF NOTE 01/23/22 06:21 Nursing Note by Tena Daniels Critical troponin result recd, not reported to Dr. Prince per md request Initialized on 01/23/22 06:21 - END OF NOTE 01/23/22 03:10 Nursing Note by Tena Daniels Dr. notifed of elevated troponin, informed of repeat troponin at 0445, order not to call to report elevated troponin as will " go up". order recd et implemented. Initialized on 01/23/22 03:10 - END OF NOTE Code(s): N18.6 - END STAGE RENAL DISEASE (2) Generalized weakness Current Visit: Yes Status: Acute Code(s): R53.1 - WEAKNESS (3) Nausea and vomiting in adult patient Current Visit: Yes Status: Acute Code(s): R11.2 - NAUSEA WITH VOMITING, UNSPECIFIED (4) ESRD (end stage renal disease) on dialysis Current Visit: No Status: Chronic Code(s): N18.6 - END STAGE RENAL DISEASE; Z99.2 - DEPENDENCE ON RENAL DIALYSIS
[2022-01-23] MEDS: Pepcid 20 MG PO SCH (23:11)
[2022-01-23] MEDS: Prozac 20 MG PO SCH (23:16)
[2022-01-24] MEDS: Sodium Chloride 0.9% 1000 ML 1,000 ML IV SCH ×2 (03:21→19:55)
[2022-01-24 05:01] LABS: Absolute Neutrophil Ct (ANC) 4.23 x10^3/uL (1.4-6.9); Basophil (Absolute #) 0.08 x10^3/uL (0-0.4); Eosinophil % 2.5 % (0.00-5.0); Eosinophil (Absolute #) 0.18 x10^3/uL (0-0.5); Hematocrit 30.7 % (35-47); Lymphocyte (Absolute #) 1.77 x10^3/uL (1.0-4.6); Lymphocytes % 24.6 % (24.0-44.0); Mean Cell Volume 97.2 fL (78-100); Mean Corpuscular Hemoglobin 31.6 pg (26-32); Mean Corpuscular Hgb Concent. 32.6 g/dL (32-36); Mean Platelet Volume 9.8 fL (7.5-11.0); Monocytes % 12.5 % (0.0-12.0); Neutrophil % 58.9 % (36.0-66.0); Platelet Count 187 x10^3/uL (150-450); Red Blood Count 3.16 x10^6/uL (4.1-5.4); Red Cell Distribution Width 14.2 % (11.5-14.0); White Blood Count 7.2 x10^3/uL (4.0-10.5)
[2022-01-24 05:35] LABS: ANION GAP 11.1 MEQ/L (5-15); BILIRUBIN,TOTAL 1.2 mg/dL (0.2-1.3); Calcium 8.8 mg/dL (8.4-10.2); Creatinine 1 3.86 mg/dL (0.52-1.04); EST GLOMERULAR FILTRATION RATE 11.9 ML/MIN; Potassium 3.9 mmol/L (3.5-5.1); Total Protein 6.3 g/dL (6.3-8.2)
[2022-01-24] MEDS: TYLENOL 325 MG PO PRN ×2 (06:27→09:23)
[2022-01-24] MEDS: VENTOLIN COMMON CANISTER IH SCH (06:50)
[2022-01-24] MEDS: Protonix 40MG Tablet PO SCH (09:23)
[2022-01-24] MEDS: PROAMATINE PO SCH ×2 (09:23→17:32)
[2022-01-24] MEDS: Cordarone 200 MG PO SCH (09:24)
[2022-01-24] MEDS: SYNTHROID 50 MCG PO SCH (09:24)
[2022-01-24] MEDS: ZYLOPRIM 100 MG PO SCH (09:24)
[2022-01-24] MEDS: ELIQUIS 2.5 MG TABLET PO SCH ×2 (09:24→23:26)
[2022-01-24] MEDS ORDERED: NON-FORMULARY ITEM (Omeprazole [Omeprazole] 40 MG Capsule.Dr) PO SCH (10:00)
[2022-01-24] MEDS ORDERED: Hydromorphone 1 mg/ml Injection ONE (17:30)
[2022-01-24] MEDS: Hydromorphone 1 mg/ml Injection IV PRN (17:32)
[2022-01-24] MEDS: Pepcid 20 MG PO SCH (23:26)
[2022-01-24] MEDS: Prozac 20 MG PO SCH (23:26)
[2022-01-25] MEDS: Hydromorphone 1 mg/ml Injection IV PRN ×3 (02:50→12:51)
[2022-01-25] MEDS: PROAMATINE PO SCH (08:01)
--- NOTE | 2022-01-25 08:14 | PCM.NOTE ---
Date and Time: 01/24/22811 late entry note Subjective Assessment: doing ok. Doesnot want anymore dialysis - Review of Systems Constitutional: Fatigue, Lethargy, Weakness, No Fever, No Chills Eyes: No Symptoms Ears, Nose, & Throat: No Symptoms Respiratory: No Cough, No Short Of Breath Cardiac: No Chest Pain, No Edema, No Syncope Abdominal/Gastrointestinal: No Abdominal Pain, No Nausea, No Vomiting, No Diarrhea Genitourinary Symptoms: No Dysuria Musculoskeletal: No Back Pain, No Neck Pain Skin: No Rash Neurological: No Dizziness, No Focal Weakness, No Sensory Changes Psychological: No Symptoms Endocrine: No Symptoms Hematologic/Lymphatic: No Symptoms Immunological/Allergic: No Symptoms Objective Exam General Appearance: no apparent distress, alert Neurologic Exam: alert, oriented x 3, cooperative, normal mood/affect, nml cerebellar function, sensation nml, No motor deficits Skin Exam: normal color, warm, dry Eye Exam: PERRL, EOMI, eyes nml inspection Ears, Nose, Throat Exam: normal ENT inspection, pharynx normal, moist mucous membranes Neck Exam: normal inspection, non-tender, supple, full range of motion Respiratory Exam: normal breath sounds, lungs clear, No respiratory distress Cardiovascular Exam: regular rate/rhythm, normal heart sounds Gastrointestinal/Abdomen Exam: soft, No tenderness, No mass Extremity Exam: normal inspection, normal range of motion Back Exam: normal inspection, normal range of motion, No CVA tenderness, No vertebral tenderness Pelvic Exam: deferred Rectal Exam: deferred OBJECTIVE DATA Vital Signs: Vital Signs - 24 hr Temp Pulse Resp BP Pulse Ox 01/25/22 07:16 97.9 F 86 16 184/78 96 01/25/22 07:08 96 01/25/22 04:00 97.5 F 82 18 133/62 95 01/25/22 00:00 97.8 F 84 20 125/60 95 01/24/22 20:00 97.8 F 72 19 124/60 93 L 01/24/22 18:50 93 L 01/24/22 16:00 98.0 F 77 16 146/67 98 01/24/22 12:00 16 01/24/22 11:27 98.6 F 71 16 133/58 95 Pain Assessment - Last Documented Pain Intensity 0 Pain Scale Used FLACC Intake and Output: Intake & Output 11/14/01/23/22 01/24/22 01/25/22 11:59 11:59 11:59 11:59 Intake Total 0 2191 1977 Output Total 100 225 275 Balance -100 1967 170 Weight 117.2 kg Multi-Disciplinary Progress Notes: Multi-Disciplinary Progress Notes 01/24/22 09:29 Case Management Note by Dayana Mijares ( [email or web address]) CALLED THIS AM AND ARE READY FOR PATIENT AT TIME OF DC Initialized on 01/24/22 09:29 - END OF NOTE Assessment/Plan (1) End stage renal disease Current Visit: Yes Status: Chronic Code(s): N18.6 - END STAGE RENAL DISEASE (2) Generalized weakness Current Visit: Yes Status: Chronic Code(s): R53.1 - WEAKNESS (3) Nausea and vomiting in adult patient Current Visit: Yes Status: Resolved Code(s): R11.2 - NAUSEA WITH VOMITING, UNSPECIFIED (4) ESRD (end stage renal disease) on dialysis Current Visit: Yes Status: Chronic Code(s): N18.6 - END STAGE RENAL DISEASE; Z99.2 - DEPENDENCE ON RENAL DIALYSIS
--- NOTE | 2022-01-25 08:15 | PCM.DS ---
Discharge Summary Date of Admission: 01/23/22 00:13 Admitting Physician: AFIA PRINCE Consults: Consults on Case 01/23/22 10:29 Consult Nephrology ROUTINE Primary Care Provider: GENOVEVA CASTELLANOS Allergies Allergies codeine Allergy (Unknown, Verified 01/22/22 20:19) erythromycin base Allergy (Unknown, Verified 01/22/22 20:19) latex Allergy (Unknown, Verified 01/22/22 20:19) Sulfa (Sulfonamide Antibiotics) Allergy (Unknown, Verified 01/22/22 20:19) Hospital Summary - Hospital Course Hospital Course: Chief Complaint Diagnosis Generalized weakness Allergies Allergy/AdvReac Type Severity Reaction Status Date / Time codeine Allergy Unknown Verified 01/22/22 20:19 erythromycin base Allergy Unknown Verified 01/22/22 20:19 latex Allergy Unknown Verified 01/22/22 20:19 Sulfa (Sulfonamide Allergy Unknown Verified 01/22/22 20:19 Antibiotics) Vital Signs (Last 24 hours) Temp Pulse Resp BP Pulse Ox 01/25/22 07:16 97.9 F 86 16 184/78 96 01/25/22 07:08 96 01/25/22 04:00 97.5 F 82 18 133/62 95 01/25/22 00:00 97.8 F 84 20 125/60 95 01/24/22 20:00 97.8 F 72 19 124/60 93 L 01/24/22 18:50 93 L 01/24/22 16:00 98.0 F 77 16 146/67 98 01/24/22 12:00 16 01/24/22 11:27 98.6 F 71 16 133/58 95 Current Medications Generic Name Dose Route Start Last Admin Trade Name Freq PRN Reason Stop Dose Admin Acetaminophen 650 mg 01/24/22 06:24 01/24/22 09:23 Acetaminophen 325 Mg Tablet PO 02/23/22 06:23 650 mg Q4H PRN PRN Administration PAIN AND/OR FEVER Allopurinol 100 mg 01/23/22 13:00 01/24/22 09:24 Allopurinol 100 Mg Tablet PO 02/22/22 12:59 100 mg DAILY ALISHA Administration Amiodarone HCl 200 mg 01/23/22 13:00 01/24/22 09:24 Amiodarone Hcl 200 Mg Tab PO 02/22/22 12:59 200 mg DAILY ALISHA Administration Apixaban 2.5 mg 01/23/22 13:00 01/24/22 23:26 Apixaban 2.5 Mg Tablet PO 02/22/22 12:59 Not Given BID ALISHA Ergocalciferol 50,000 unit 01/28/22 10:00 Ergocalciferol (Vitamin D2) 50,000 Unit Capsule PO 02/27/22 09:59 Q7D ALISHA Famotidine 40 mg 01/23/22 22:00 01/24/22 23:26 Famotidine 20 Mg Tablet PO 02/22/22 21:59 Not Given QHS ALISHA Fluoxetine HCl 20 mg 01/23/22 22:00 01/24/22 23:26 Fluoxetine Hcl 20 Mg Cap PO 02/22/22 21:59 Not Given HS ALISHA Hydromorphone HCl 0.5 mg 01/24/22 17:24 01/25/22 02:50 Hydromorphone 1 Mg/1ml Inj 1 Mg/Ml Syringe IV 01/29/22 17:23 0.5 mg Q4H PRN PRN Administration PAIN Sodium Chloride 1,000 mls @ 60 mls/hr 01/23/22 12:15 01/24/22 19:55 Sodium Chloride 0.9% 1000 Ml IV 02/22/22 12:14 60 mls/hr .[id number] ALISHA Administration Levothyroxine Sodium 50 mcg 01/23/22 13:00 01/24/22 09:24 Levothyroxine Sodium 50 Mcg Tablet PO 02/22/22 12:59 50 mcg DAILY ALISHA Administration Lorazepam 1 mg 01/23/22 02:26 01/23/22 02:31 Lorazepam 2 Mg/1 Ml 2 Mg Vial IV 02/22/22 02:25 1 mg Q6H PRN PRN Administration ANXIETY Midodrine 5 mg 01/23/22 17:00 01/25/22 08:01 Midodrine Hcl 5 Mg Tablet PO 02/22/22 16:59 Not Given BIDWM ALISHA Ondansetron HCl 4 mg 01/23/22 12:31 01/24/22 17:32 Zofran 4 Mg/Udtablet Orally Disintegrating PO 02/22/22 12:30 4 mg Q4H PRN PRN Administration NAUSEA Pantoprazole Sodium 40 mg 01/23/22 13:00 01/24/22 09:23 Protonix (Pantoprazole) 40 Mg Tablet PO 02/22/22 12:59 40 mg DAILY ALISHA Administration Discontinued Medications Generic Name Dose Route Start Last Admin Trade Name Brendanq PRN Reason Stop Dose Admin Albuterol Sulfate 2 puff 01/23/22 13:00 01/24/22 06:50 Albuterol Common Canister Inhaler 02/22/22 12:59 Not Given Q6HRT ALISHA Hydromorphone HCl Confirm 01/24/22 17:30 Hydromorphone 1 Mg/1ml Inj 1 Mg/Ml Syringe Administered 01/24/22 17:31 Dose 1 mg .ROUTE .STK-MED ONE Levalbuterol HCl 1.25 mg 01/22/22 19:19 01/22/22 19:20 Levalbuterol Hcl 1.25 Mg/0.5 Ml Nebule 01/22/22 19:20 Not Given STAT ONE Intake & Output (Last 24 hours) 01/22/22 01/23/22 01/24/22 01/25/22 11:59 11:59 11:59 11:59 Intake Total 0 2192 1978 Output Total 100 225 275 Balance -100 1967 1703 Weight 117.2 kg Microbiology Results (Last 24 hours) 01/22/22 12:20 Blood Blood Culture Gram Stain - Pending 01/22/22 12:20 Blood Blood Culture - Preliminary NO GROWTH TO DATE 01/22/22 12:20 Blood Blood Culture Gram Stain - Pending 01/22/22 12:20 Blood Blood Culture - Preliminary NO GROWTH TO DATE Orders (Last 24 hours) Category Date Time Status Miscellaneous Nursing Order ROUTINE Care 01/24/22 08:00 Active Ergocalciferol (Vitamin D2) [Vitamin D2] Med 01/28/22 10:00 Active 50,000 unit PO Q7D Hydromorphone 1 mg/1Ml Inj [Hydromorphone 1 mg/ml Med 01/24/22 17:24 Active Injection] 0.5 mg IV Q4H PRN PRN Hydromorphone 1 mg/1Ml Inj [Hydromorphone 1 mg/ml Med 01/24/22 17:30 Discontinued Injection] 1 mg .ROUTE .STK-MED ONE Patient Care Notes (Last 24 hours) 01/24/22 09:29 Case Management Note by Dayana Mijares ( [email or web address]) CALLED THIS AM AND ARE READY FOR PATIENT AT TIME OF DC Initialized on 01/24/22 09:29 - END OF NOTE - Vitals & Intake/Output Vital Signs: Vital Signs Temperature 97.9 F 01/25/22 07:16 Pulse Rate 86 01/25/22 07:16 Respiratory Rate 16 01/25/22 07:16 Blood Pressure 184/78 01/25/22 07:16 O2 Sat by Pulse Oximetry 96 01/25/22 07:16 Intake & Output: Intake & Output 01/22/22 01/23/22 01/24/22 01/25/22 11:59 11:59 11:59 11:59 Intake Total 0 2192 1977 Output Total 100 225 275 Balance -100 1967 170 Weight 117.2 kg - Lab Result Diagrams: 01/24/22 05:05 01/24/22 05:05 Micro Results-Entire Visit: Microbiology 01/22/22 12:20 Blood Culture - Preliminary Blood NO GROWTH TO DATE 01/22/22 12:20 Blood Culture - Preliminary Blood NO GROWTH TO DATE - Procedures and Test Procedures and Tests throughout Hospitalization: Therapy Orders & Screens 01/23/22 01:43 BiPap/CPAP ROUTINE Comment: PRESSURE OF 12 WITH ROOM AIR Diagnosis: Generalized weakness 01/23/22 19:03 Respiratory Therapy Assessment DAILY Comment: Diagnosis: Generalized weakness Discharge Exam General Appearance: no apparent distress, alert Neurologic Exam: alert, oriented x 3, cooperative, normal mood/affect, nml cerebellar function, sensation nml, No motor deficits Eye Exam: PERRL, EOMI, eyes nml inspection Ears, Nose, Throat Exam: normal ENT inspection, pharynx normal, moist mucous membranes Neck Exam: normal inspection, non-tender, supple, full range of motion Respiratory Exam: normal breath sounds, lungs clear, No respiratory distress Cardiovascular Exam: regular rate/rhythm, normal heart sounds Gastrointestinal/Abdomen Exam: soft, No tenderness, No mass Pelvic Exam: deferred Rectal Exam: deferred Back Exam: normal inspection, normal range of motion, No CVA tenderness, No vertebral tenderness Extremity Exam: normal inspection, normal range of motion Skin Exam: normal color, warm, dry Final Diagnosis/Problem List - Final Discharge Diagnosis/Problem (1) End stage renal disease Current Visit: Yes Status: Chronic Code(s): N18.6 - END STAGE RENAL DISEASE (2) Generalized weakness Current Visit: Yes Status: Chronic Code(s): R53.1 - WEAKNESS (3) Nausea and vomiting in adult patient Current Visit: Yes Status: Resolved Code(s): R11.2 - NAUSEA WITH VOMITING, UNSPECIFIED (4) ESRD (end stage renal disease) on dialysis Current Visit: Yes Status: Chronic Code(s): N18.6 - END STAGE RENAL DISEASE; Z99.2 - DEPENDENCE ON RENAL DIALYSIS - Discharge Discharge Date: 01/25/22 Disposition: DC TO [facility] Condition: Stable Prescriptions: No Action Allopurinol 100 mg [Zyloprim 100 mg] 100 mg PO DAILY Fluoxetine HCl 20 mg [Prozac 20 MG] 20 mg PO HS Famotidine 40 mg PO QHS Apixaban [Eliquis 2.5 mg Tablet] 2.5 mg PO BID Levothyroxine Sodium 50 Mcg [Synthroid 50 Mcg] 50 mcg PO DAILY Ergocalciferol (Vitamin D2) [Vitamin D2] 50,000 unit PO Q7D Omeprazole 40 mg PO DAILY Midodrine HCl [Proamatine] 5 mg PO BID Amiodarone HCl 200 mg [Cordarone 200 MG] 200 mg PO DAILY Albuterol Sulfate [Albuterol Sulfate Hfa] 2 puff IH Q6H Ondansetron ODT 4 MG [Zofran Odt 4 mg] 4 mg PO Q4H PRN PRN #20 tablet PRN Reason: Nausea Follow up with: PEBBLES DUKE [CONSULTING PHYSICIAN] - AFIA PRINCE MD [ACTIVE STAFF] -
[2022-01-25] MEDS ORDERED: Ativan 2 MG/1 ML VIAL ONE ×2 (09:16→12:50)
[2022-01-25] MEDS: Ativan 2 MG/1 ML VIAL IV PRN ×2 (09:18→12:53)
[2022-01-25] MEDS: Protonix 40MG Tablet PO SCH (10:48)
[2022-01-25] MEDS: ELIQUIS 2.5 MG TABLET PO SCH (10:48)
[2022-01-25] MEDS: Cordarone 200 MG PO SCH (10:48)
[2022-01-25] MEDS: SYNTHROID 50 MCG PO SCH (10:49)
[2022-01-25] MEDS: ZYLOPRIM 100 MG PO SCH (10:49)
[2022-01-25 12:17] VITALS: BP 140/64; PULSE 75
[2022-01-25 13:43] VITALS: O2SAT 96
[2022-01-28] MEDS ORDERED: VITAMIN D2 PO SCH (10:00)
== END 2022-01-25 15:13 ==
LOC: ED 19:04 → MED SURG 01-23 00:13
PROVIDERS: ADMIT General Practice; ATTEND General Practice
DX: N18.6 End stage renal disease (principal); R53.1 Weakness; R11.2 Nausea with vomiting, unspecified; I11.0 Hypertensive heart disease with heart failure; I50.9 Heart failure, unspecified; I25.10 Atherosclerotic heart disease of native coronary artery without angina pectoris; Z99.2 Dependence on renal dialysis; Z20.828 Contact with and (suspected) exposure to other viral communicable diseases; Z79.01 Long term (current) use of anticoagulants; Z79.899 Other long term (current) drug therapy; Z93.3 Colostomy status
CPT/HCPCS: 36000; 36415; 70450; 71045; 80053; 81015; 84484; 85025; 87040; 93005; 93041; 93268; 94640; 94660; 94760; 99285; G0378; 94762; J1170; J2060; Q0162; A9270-GY